=== PATIENT | female | born 1975 | race Caucasian/White ===

== ENCOUNTER 2020-07-04 18:12 | Emergency (ER) | payer SELFPAY ==
--- NOTE | ~2020-07-04 | CT_ITS ---
EXAMINATION: CT ABDOMEN AND PELVIS WITH CONTRAST CLINICAL INFORMATION: Right flank pain COMPARISON: Ultrasound of abdomen 06/17/2012 TECHNIQUE: Multidetector volumetric images were obtained from the superior aspect of the liver through the pubic symphysis following administration 85 mL of Omnipaque 350 intravenous contrast. Sagittal and coronal reformatted images were obtained on the technologist's workstation. Oral contrast: No This CT examination was performed using dose optimization techniques as appropriate, variously including the following: *Automated exposure control *Adjustment of mA and/or kV according to patient size (this includes techniques or standardized protocols for targeted exams where dose is matched to indication/reason for exam; i.e. extremities or head) *Use of iterative reconstruction technique DLP: 544 mGy-cm FINDINGS: LUNG BASES: The visualized lung bases are unremarkable. LIVER, GALLBLADDER, AND BILIARY TREE: Status post cholecystectomy. Intrahepatic and extrahepatic bile duct dilatation from prior biliary disease. No calcified stones seen in the bile duct. No suspicious liver lesions. PANCREAS: Unremarkable. SPLEEN: Unremarkable. ADRENAL GLANDS: Unremarkable. KIDNEYS AND URETERS: The kidneys are normal in size, shape, and attenuation. No hydronephrosis, hydroureter, or calculi seen. No perinephric stranding. BLADDER: Unremarkable. GASTROINTESTINAL TRACT: The small and large bowel are unremarkable. The appendix is unremarkable. ABDOMINAL WALL: No significant hernia is appreciated. LYMPH NODES: Normal. VASCULAR: Unremarkable. PELVIC VISCERA: Unremarkable. OSSEOUS STRUCTURES: Status post fusion L4-L5 and L5-S1 with orthopedic cages in place. Mild degenerative spurring at the anterior endplates of thoracic and lumbar vertebrae. CT/CT abdomen pelvis w con IMPRESSION: No acute abnormality CT scan abdomen pelvis. Normal kidneys, ureter and bladder. Normal appendix. No adnexal abnormality. Status post cholecystectomy.
[2020-07-04 18:29] VITALS: BP 110/73; PULSE 76; RESP 16; TEMP 36.9; O2SAT 97; BMI 30.2
[2020-07-04 19:34] LABS: Appearance Urine CLEAR; Color Urine YELLOW; Glucose Urine UA NEG (NEG); Leukocyte Esterase Urine NEG (NEG); Nitrite Urine NEG (NEG); PH 5.5 (5.0-8.0); Specific Gravity - Urine >= 1.030 (1.005-1.025); Urine Blood NEG (NEG); Urine Ketones NEG (NEG); Urine Protein NEG (NEG-TRACE)
--- NOTE | 2020-07-04 20:04 | ED_ITS ---
HPI - General Adult General Chief complaint: Abdominal Pain Stated complaint: flank pain? Time Seen by Provider: 07/04/20 19:58 History of Present Illness HPI narrative: Patient presents to the ED for right lower flank pain radiating down right leg. Patient states symptoms occurring for the past 4 days. Patient states no fever, chills, nausea, vomiting, diarrhea, dysuria, hematuria, chest pain, shortness of breath. Patient denies any IV drug use. Patient denies any trauma recently to right flank. Patient denies any urinary/bowel incontinence Related Data Previous Rx's Medication Instructions Recorded naproxen 500 mg PO BID PRN #20 tab 07/04/20 Allergies Allergy/AdvReac Type Severity Reaction Status Date / Time acetaminophen [From PERCOCET] AdvReac Intermediate NAUSEA & Verified 07/04/20 18:28 VOMITING oxycodone [From PERCOCET] AdvReac Intermediate NAUSEA & Verified 07/04/20 18:28 VOMITING Augmentin Allergy Unknown Unknown Uncoded 07/04/20 18:28 Cyclobenzaprine HCl Allergy Unknown Unknown Uncoded 07/04/20 18:28 Oxycodone HCl Allergy Unknown Unknown Uncoded 07/04/20 18:28 Penicillin Allergy Unknown Unknown Uncoded 07/04/20 18:28 Review of Systems Review of Systems: Yes all other systems are reviewed and are negative Constitutional: Constitutional: Reports as per HPI and Reports no additional constitutional complaints Eyes: Eyes: Reports as per HPI and Reports no additional eye complaints ENT: Reports system reviewed and no additional complaints, except as documented and Reports as per HPI Cardiovascular: Cardiovascular: Reports as per HPI and Reports no additional cardiovascular complaints Respiratory: Respiratory: Reports as per HPI and Reports no additional respiratory complaints Gastrointestinal: Gastrointestinal: Reports as per HPI and Reports no additional gastrointestinal complaints Genitourinary: Genitourinary: Reports no additional female genitourinary compl aints and Reports as per HPI Musculoskeletal: Musculoskeletal: Reports no additional musculoskeletal complaints and Reports as per HPI Comments: Right flank pain Neurologic: Reports system reviewed and no additional complaints, except as documented and Reports as per HPI Psychiatric: Psychiatric: Reports no additional psychiatric complaints and Reports as per HPI [facility] Past Medical History Medical History (Updated 07/04/20 @ 22:40 by SUKUMAR Barakat) Anxiety Arthritis Depression Fibromyalgia H/O degenerative disc disease Social History Social History Advance Directives: No Advance Directives Information Provided: No Physical Exam Vital Signs: Vital Signs: Last Vital Signs Temp 98.4 F 07/04/20 18:29 Pulse 76 07/04/20 18:29 Resp 16 07/04/20 18:29 BP 110/73 07/04/20 18:29 Pulse Ox 97 07/04/20 18:29 Body Mass Index 30.2 Const: General: cooperative, healthy appearing, comfortable, no acute distress, well developed, alert, awake and Physically active Orientation/consciousness: patient oriented x3 HENMT: Head: Yes normal to inspection, Yes No palpable skull fracture present, Yes normocephalic, Yes atraumatic, No abrasion, No Santillan's sign, No contusion, No cranial bruits, No hematoma, No laceration, No occipital foramen tenderness, No palpable skull fracture, No raccoon eyes, No scalp tenderness, No Temporal artery tenderness present and No periorbital ecchymosis Eyes: General: appearance normal, both eyes and all related structures Neck: Neck: Yes normal visual inspection, Yes full ROM, Yes no lymphadenopathy, Yes no meningeal signs, Yes trachea midline, Yes supple and No tender Chest: Chest palpation & inspection: normal inspection of the chest and normal palpation of entire chest wall Breast/axilla inspection: normal inspection of the breasts Resp: Effort & Inspection: normal respiratory effort and able to speak in complete sentences Auscultation: clear to auscultation bilaterally Cardio: Jugular venous distension: no JVD Heart sounds: S1 normal heart sound present and S2 normal heart sound present GI: Inspection: Yes normal to inspection and No abdominal wall ecchymosis Palpation (GI): Soft to palpation, not firm, nontender, no guarding and not rigid Back/Spine/Pelvis: Back: CVA tenderness (Right lower) and back tenderness (Right lumbar muscular tenderness. Negative for spine tenderness.) Skin: General skin exam: no rashes or lesions noted and elasticity normal Neuro: General: patient oriented x3, no meningeal signs and CN's II-XI intact bilaterally Cranial nerves: Yes CN's II-XII intact bilaterally Extrem: General: Yes normal to inspection and Yes full ROM Psych: Appearance: grossly normal, well kempt and not disheveled Course Course Course Narrative: Patient will have labs and urine to see for possible kidney stone/UTI. Patient was given fluids. Reevaluation(s) Reevaluation #1: Patient labs came back normal. CT scan negative for kidney stones. Urine negative for infection. Patient feels better after Toradol. Patient prepared paperwork to be discharged. History physical exam does not indicate pyelonephritis. Diagnosis sciatica exacerbation Medical Decision Making Lab Data Result diagrams: 07/04/20 20:04 07/04/20 20:04 Labs: Lab Results 07/04/20 07/04/20 07/04/20 Range/Units 19:19 20:04 20:04 WBC 9.4 (4.8-10.8) X10*3/uL RBC 4.09 L (4.20-5.50) X10*6/uL Hgb 12.8 (12.0-16.0) g/dl Hct 37.5 (37-47) % MCV 91.7 (80-98) fL MCH 31.3 (27.0-33.0) pg MCHC 34.1 (31.0-35.0) g/dl RDW 14.9 (11.0-16.0) % Plt Count 262 (160-400) X10*3/uL MPV 9.7 (9.4-12.3) fL Immature Gran % (Auto) 0.3 (0.0-0.4) % Neut % (Auto) 52.0 (45-73) % Lymph % (Auto) 38.0 (20-40) % [place] % (Auto) 6.1 (2-11) % Eos % (Auto) 3.2 (0-4) % Baso % (Auto) 0.4 (0-2) % Lymph # (Auto) 3.6 (1.2-4.9) X10*3/uL [place] # (Auto) 0.6 (0.1-1.2) X10*3/uL Eos # (Auto) 0.3 (0.0-0.4) X10*3/uL Baso # (Auto) 0.0 (0.0-0.2) X10*3/uL Abs Immat Gran (auto) 0.03 (0.00-0.03) X10*3/uL Absolute Neuts (auto) 4.9 (2.0-8.3) X10*3/uL Absolute Nucleated RBC 0.000 (0.0-0.012) X10*3/uL Nucleated RBC % (auto) 0.0 (0.0-0.2) /100WBC PT 11.6 (10.8-13.0) SEC INR 1.0 (0.9-1.1) APTT 37.6 (24.1-38.0) SEC Sodium (135-145) mmol/L Potassium (3.3-5.1) mmol/L Chloride (96-108) mmol/L Carbon Dioxide (22-29) mmol/L Anion Gap (12-20) BUN (9-16) mg/dL Creatinine (0.5-1.4) mg/dL Estim Creat Clear Calc Estimated GFR Random Glucose (60-115) mg/dL Calcium (8.4-10.2) mg/dL Total Bilirubin (0.0-1.0) mg/dL Direct Bilirubin (0.0-0.5) mg/dL AST (5-31) U/L ALT (0-31) U/L Alkaline Phosphatase (39-117) U/L Total Protein (6.5-8.0) g/dL Albumin (3.5-5.0) g/dL Lipase (8-78) U/L Urine Color YELLOW Urine Appearance CLEAR Urine pH 5.5 (5.0-8.0) Ur Specific [place] >= 1.030 H (1.005-1.025) Urine Protein NEG (NEG-TRACE) MG/DL Urine Glucose (UA) NEG (NEG) MG/DL Urine Ketones NEG (NEG) MG/DL Urine Blood NEG (NEG) Urine Nitrite NEG (NEG) Ur Leukocyte Esterase NEG (NEG) 07/04/20 Range/Units 20:04 WBC (4.8-10.8) X10*3/uL RBC (4.20-5.50) X10*6/uL Hgb (12.0-16.0) g/dl Hct (37-47) % MCV (80-98) fL MCH (27.0-33.0) pg MCHC (31.0-35.0) g/dl RDW (11.0-16.0) % Plt Count (160-400) X10*3/uL MPV (9.4-12.3) fL Immature Gran % (Auto) (0.0-0.4) % Neut % (Auto) (45-73) % Lymph % (Auto) (20-40) % [place] % (Auto) (2-11) % Eos % (Auto) (0-4) % Baso % (Auto) (0-2) % Lymph # (Auto) (1.2-4.9) X10*3/uL [place] # (Auto) (0.1-1.2) X10*3/uL Eos # (Auto) (0.0-0.4) X10*3/uL Baso # (Auto) (0.0-0.2) X10*3/uL Abs Immat Gran (auto) (0.00-0.03) X10*3/uL Absolute Neuts (auto) (2.0-8.3) X10*3/uL Absolute Nucleated RBC (0.0-0.012) X10*3/uL Nucleated RBC % (auto) (0.0-0.2) /100WBC PT (10.8-13.0) SEC INR (0.9-1.1) APTT (24.1-38.0) SEC Sodium 137 (135-145) mmol/L Potassium 4.6 (3.3-5.1) mmol/L Chloride 103 (96-108) mmol/L Carbon Dioxide 26 (22-29) mmol/L Anion Gap 13 (12-20) BUN 13 (9-16) mg/dL Creatinine 0.81 (0.5-1.4) mg/dL Estim Creat Clear Calc 83.9 Estimated GFR > 60 Random Glucose 70 (60-115) mg/dL Calcium 8.2 L (8.4-10.2) mg/dL Total Bilirubin 0.4 (0.0-1.0) mg/dL Direct Bilirubin < 0.2 (0.0-0.5) mg/dL AST 22 (5-31) U/L ALT 15 (0-31) U/L Alkaline Phosphatase 72 (39-117) U/L Total Protein 6.1 L (6.5-8.0) g/dL Albumin 3.7 (3.5-5.0) g/dL Lipase 17 (8-78) U/L Urine Color Urine Appearance Urine pH (5.0-8.0) Ur Specific [place] (1.005-1.025) Urine Protein (NEG-TRACE) MG/DL Urine Glucose (UA) (NEG) MG/DL Urine Ketones (NEG) MG/DL Urine Blood (NEG) Urine Nitrite (NEG) Ur Leukocyte Esterase (NEG) Discharge Plan Discharge Clinical Impression: Sciatica Patient Disposition: Home, Self-Care Instructions: Sciatica (ED) Additional Instructions: To the ED immediately for worsening lower flank/back pain, urinary con tinence/bowel incontinence, paralysis of lower extremities, fever, chills, severe back pain, chest pain, shortness of breath, or any other concerning symptoms. Please follow up with PCP Prescriptions: New naproxen 500 mg tablet 500 mg PO BID PRN (Reason: pain) Qty: 20 RF: 0 Interventions: ED Discharge Assessment Last Done: 07/04/20 22:47 Discharge Date/Time: 07/04/20 22:48 Print Language: Ethiopian
[2020-07-04 20:15] LABS: MANUAL DIFF FLAG NO
[2020-07-04] MEDS: 0.9 % Sodium Chloride 1,000 ML 999 ML IV (20:16)
[2020-07-04 20:17] LABS: Basophils Percent Auto 0.4 % (0-2); Eosinophils Absolute Auto 0.3 X10*3/uL (0.0-0.4); Eosinophils Percent Auto 3.2 % (0-4); Hematocrit 37.5 % (37-47); Hemoglobin 12.8 g/dl (12.0-16.0); Imm Gran Abs Auto 0.03 X10*3/uL (0.00-0.03); Imm Gran Pct Auto 0.3 % (0.0-0.4); Lymphocytes Absolute Auto 3.6 X10*3/uL (1.2-4.9); Mean Corpuscular HGB Conc 34.1 g/dl (31.0-35.0); Mean Corpuscular Hemoglobin 31.3 pg (27.0-33.0); Mean Corpuscular Volume 91.7 fL (80-98); Mean Platelet Volume 9.7 fL (9.4-12.3); Monocytes Absolute Auto 0.6 X10*3/uL (0.1-1.2); Monocytes Percent Auto 6.1 % (2-11); Neutrophils Absolute Auto 4.9 X10*3/uL (2.0-8.3); Platelet Count 262 X10*3/uL (160-400); Red Blood Count 4.09 X10*6/uL (4.20-5.50); Red Cell Distribution Width 14.9 % (11.0-16.0); White Blood Count 9.4 X10*3/uL (4.8-10.8)
[2020-07-04 20:22] LABS: Prothrombin Time 11.6 SEC (10.8-13.0)
[2020-07-04 20:25] LABS: Partial Thromboplastin Time 37.6 SEC (24.1-38.0)
[2020-07-04 20:36] LABS: Alanine Aminotransferase 15 U/L (0-31); Albumin Level 3.7 g/dL (3.5-5.0); Alkaline Phosphatase 72 U/L (39-117); Anion Gap 13 (12-20); Aspartate Amino Transferase 22 U/L (5-31); Bilirubin Direct < 0.2 mg/dL (0.0-0.5); Bilirubin Total 0.4 mg/dL (0.0-1.0); Blood Urea Nitrogen 13 mg/dL (9-16); Calcium 8.2 mg/dL (8.4-10.2); Carbon Dioxide 26 mmol/L (22-29); Chloride 103 mmol/L (96-108); Creatinine Clr Calc Pharmacy 83.9; Estimated Glomerular Filt Rate > 60; Glucose Random 70 mg/dL (60-115); Lipase 17 U/L (8-78); Potassium 4.6 mmol/L (3.3-5.1); Sodium 137 mmol/L (135-145); Total Protein 6.1 g/dL (6.5-8.0)
[2020-07-04] MEDS: Ketorolac Tromethamine 30 MG/ML VIAL IVPUSH (22:20)
== END 2020-07-04 22:48 | disposition home or self-care (01) ==
PROVIDERS: Physician Assistant; Emergency Provider Internal Medicine; PCP Hospitalist
DX: M54.41 Lumbago with sciatica, right side (principal); R10.9 Unspecified abdominal pain; Z79.899 Other long term (current) drug therapy
CPT/HCPCS: 36415; 74177; 80053; 80076; 81003; 83690; 85025; 85610; 85730; 96365; 96375; 99283; J1885; Q9967

== ENCOUNTER 2021-08-10 08:19 | Outpatient (REF) | payer MEDICARE, MEDICAID, SELFPAY ==
--- NOTE | ~2021-08-10 | XR_ITS ---
EXAMINATION: XR LUMBOSACRAL SPINE CLINICAL INFORMATION: Chronic pain. COMPARISON: None TECHNIQUE: Three views of the lumbosacral spine. FINDINGS: There is normal lumbar lordosis. There is L4-L5 and L5-S1 cages for fusion. Rest of the disc heights are normal. No visible acute fracture, dislocation or lytic process seen. There are prevertebral sutures from previous intervention. Otherwise the paravertebral soft tissues are normal. SI joints are symmetrical and normal. There are surgical cecilia in right upper quadrant from previous cholecystectomy. XR/XR lumbar spine 2-3V IMPRESSION: L4-L5 and L5-S1 cages for fusion. Otherwise rest of the lumbar spine exam is unremarkable.
[2021-08-10 11:22] LABS: MANUAL DIFF FLAG NO
[2021-08-10 11:36] LABS: Basophils Absolute Auto 0.1 X10*3/uL (0.0-0.2); Basophils Percent Auto 0.5 % (0-2); Eosinophils Absolute Auto 0.3 X10*3/uL (0.0-0.4); Eosinophils Percent Auto 2.4 % (0-4); Hematocrit 41.2 % (37.0-47.0); Hemoglobin 13.8 g/dl (12.0-16.0); Imm Gran Abs Auto 0.04 X10*3/uL (0.00-0.03); Imm Gran Pct Auto 0.4 % (0.0-0.4); Lymphocytes Absolute Auto 2.3 X10*3/uL (1.2-4.9); Lymphocytes Percent Auto 20.5 % (20-40); Mean Corpuscular HGB Conc 33.5 g/dl (31.0-35.0); Mean Corpuscular Hemoglobin 30.9 pg (27.0-33.0); Mean Corpuscular Volume 92.4 fL (80.0-98.0); Mean Platelet Volume 10.7 fL (9.4-12.3); Monocytes Absolute Auto 0.7 X10*3/uL (0.1-1.2); Monocytes Percent Auto 6.1 % (2-11); Neutrophils Absolute Auto 7.8 x10*3/uL (2.0-8.3); Neutrophils Percent Auto 70.1 % (45-73); Platelet Count 356 X10*3/uL (160-400); Red Blood Count 4.46 X10*6/uL (4.20-5.50); Red Cell Distribution Width 14.3 % (11.0-16.0); White Blood Count 11.1 X10*3/uL (4.8-10.8)
[2021-08-10 12:09] LABS: Ferritin 46 ng/mL (10-250); TSH reflex Free T4 1.73 uIU/mL (0.32-4.0)
[2021-08-10 12:12] LABS: Alanine Aminotransferase 9 U/L (0-31); Albumin Level 4.1 g/dL (3.5-5.0); Alkaline Phosphatase 74 U/L (39-117); Anion Gap 12 (12-20); Aspartate Amino Transferase 13 U/L (5-31); Bilirubin Total 0.3 mg/dL (0.0-1.0); Blood Urea Nitrogen 14 mg/dL (9-16); C Reactive Protein 1.37 mg/dL (< or = 0.50); Calcium 9.5 mg/dL (8.4-10.2); Carbon Dioxide 28 mmol/L (22-29); Chloride 105 mmol/L (96-108); Cholesterol 177 mg/dL; Estimated Glomerular Filt Rate > 60; Glucose Fasting 80 mg/dL (60-99); HDL Cholesterol 47 mg/dL; Iron 49 mcg/dL (30-160); LDL Cholesterol Calculated 114 mg/dl; Percent Iron Saturation 14 % (15-50); Potassium 4.6 mmol/L (3.3-5.1); Sodium 140 mmol/L (135-145); Total Iron Binding Capacity 346 mcg/dL (228-428); Total Protein 6.8 g/dL (6.5-8.0); Triglycerides 84 mg/dL; Unsaturated Iron Binding 297 ug/dL
[2021-08-10 12:22] LABS: Erythrocyte Sedimentation Rate 7 MM/HR (0-20)
[2021-08-10 12:30] LABS: Appearance Urine CLEAR; Color Urine YELLOW; Glucose Urine UA NEG (NEG); Leukocyte Esterase Urine NEG (NEG); Nitrite Urine NEG (NEG); Urine Blood NEG (NEG); Urine Ketones NEG (NEG); Urine Protein NEG (NEG-TRACE)
[2021-08-12 14:42] LABS: Anti Nuclear Antibody Screen NEGATIVE (NEGATIVE)
[2021-08-14 18:41] LABS: Lyme Abs Screen <0.90 index
[2021-08-14 23:01] LABS: Antibody to SS-A Antigen <1.0 NEG AI (<1.0 NEG); Antibody to SS-B Antigen <1.0 NEG AI (<1.0 NEG)
== END 2021-08-10 08:20 | disposition home or self-care (01) ==
LOC: HO.HMGCLDS 08:19
PROVIDERS: Visit Provider Nurse Practitioner Family
DX: M19.90 Unspecified osteoarthritis, unspecified site (principal); M79.7 Fibromyalgia; G89.29 Other chronic pain
CPT/HCPCS: 36415; 72100; 80053; 80061; 81003; 82728; 83540; 84443; 85025; 85652; 86038; 86039; 86140; 86235; 86617; 86618

== ENCOUNTER → 2021-09-04 08:23 | Outpatient (BNVA) | payer MEDICARE, MEDICAID, SELFPAY | PROVIDERS: PCP Nurse Practitioner Family; Visit Provider Internal Medicine | DX: M96.1 Postlaminectomy syndrome, not elsewhere classified (principal); M25.569 Pain in unspecified knee; M25.519 Pain in unspecified shoulder | CPT/HCPCS: 99202 ==

== ENCOUNTER 2022-10-31 13:21 | Outpatient (AMB) | payer OTHER, MEDICAID, SELFPAY ==
--- NOTE | 2022-10-31 13:27 | A.OFFVIS_ITS ---
Intake Vital Signs 10/31/22 13:29 Height 5 ft 2 in Weight 166 lb BMI 30.4 BP 90/58 L Intake Visit Reasons: New patient Annual Intake Note: The patient agreed to use of a medical cost consultant during this encounter. Scribed for JAG Chavarria by Doris Boston medical cost consultant, on 10/31/2022. Procurement Analyst Required: No Information Interpreted: non-clinical & clinical Senior Pharmacy Technician: Senior Pharmacy Technician Present (Aidyn) Allergies Augmentin Allergy (Unknown, Uncoded 10/31/22 13:31) Unknown Cyclobenzaprine HCl Allergy (Unknown, Uncoded 10/31/22 13:31) Unknown Oxycodone HCl Allergy (Unknown, Uncoded 10/31/22 13:31) Unknown Penicillin Allergy (Unknown, Uncoded 10/31/22 13:31) Unknown Is last menstrual period known: Yes Last menstrual period: 10/24/22 Post menopausal: No HPI HPI Comments History of Present Illness Details She is a new patient postmenopausal woman presenting for annual exam. Complains of hot flashes and sweating in pubic area. Patient admits she tries to eat a healthy diet including Calcium and Vitamin D. She stays active with exercise. Currently sexually active. Denies vaginal itching and irritation. STD screening offered; she declines. Denies family hx of breast, colon and ovarian cancer. Last pap smear few years ago; normal per pt. Patient reports last mammograms are up to date but does not remember where it was done. UTD on colonoscopy. PFSH Medical History Anxiety Arthritis Depression Fibromyalgia H/O degenerative disc disease Hot flashes Surgical History History of back surgery Hx of knee surgery Hx of tubal ligation Family History Mother Cervical cancer Father Throat cancer Social History Housing: Apartment Patient Tobacco Use Status: Current everyday Tobacco user Cigarette Packs Per Day: 1 Cigarettes Per Day: 20 e-Cigarette/Vaping Use: Never Used Second Hand Smoke Exposure: No service: No Current occupational status: disabled Cognitive needs: No Hearing needs: No Vision needs: No Female Reproductive History Menstrual Age of Menarche: 14 Duration of menses: 6-7 days Date of last menstrual period: 10/24/22 control method: permanent sterilization Total pregnancies: 2 Full term: 2 Number of Living Children: 2 Physical Exam Vital Signs: Last Vital Signs BP 90/58 L 10/31/22 13:29 BMI result Body Mass Index 30.4 Const General: cooperative, healthy appearing, no acute distress, well developed and alert Orientation/consciousness: patient oriented x3 HEENT Head: Yes normal to inspection Eyes General: appearance normal, both eyes and all related structures Neck Neck: Yes normal visual inspection Thyroid: Thyroid normal Chest Chest palpation & inspection: normal inspection of the chest Breast/axilla inspection: normal inspection of the breasts (no puckering, dimpling, peau de orange, retraction, discharge, masses) Breast/axilla palpation: normal palpation of the breasts Resp Effort & Inspection: normal respiratory effort GI Inspection: Yes normal to inspection Palpation (GI): Soft to palpation (to palpation) Rectal Exam - Female: deferred General: Yes bladder normal to inspection External Female Exam: normal external appearance and normal appearance of the urethra Speculum Exam - Vagina: normal appearance of the vagina, normal palpation and normal vaginal discharge Speculum Exam - Cervix: normal appearance of the cervix, normal palpation and Other cervical findings present (bled slightly with pap) Bimanual exam- vagina & uterus: normal palpation and normal palpation Bimanual Exam- Adnexa, other: normal adnexae and no masses Skin General skin exam: no rashes or lesions noted Neuro General: patient oriented x3 Cognition (Neuro): normal cognition Extrem General: Yes normal to inspection Psych Attitude: cooperative Thought process: Normal thought process present Assessment & Plan Assessment & Plan (1) Encounter for well woman exam: Code(s): Z01.419 - Encounter for gynecological examination (general) (routine) without abnormal findings Plan: Discussed: Current recommendations for pap smears per ASCCP guidelines. Breast awareness and periodic self breast exams. Encouraged yearly mammograms. Maintaining a healthy lifestyle including a well balanced diet including Calcium and Vitamin D and routine exercise. Recommend researching and buying OTC vaginal/pubic deodorant as a potential option. Counseled on hot flashes. Avoid spicy foods and alcohol. Wear light, layered clothing. Sleep with fan on. Can also try a cooling pillow or mattress. Stay well hydrated. Researching book called The [place] of Menopause or other similar information at the library. Recommend lubricants if experience vaginal dryness. Contact office with any PMB. All of her questions and concerns were addressed to the best of my ability RTO in 1 year for AG. (2) Hot flashes: Code(s): R23.2 - Flushing Orders: Orders Pap Smear Today Z01.419 - Encounter for gynecological examination (general) (routine) without abnormal findings Coding Level of Care Code New Pt Prev Care 40-64y(17389) Diagnoses Encounter for well woman exam Z01.419 Hot flashes R23.2
[2022-10-31 13:29] VITALS: BP 90/58; BMI 30.4
== END 2022-10-31 14:23 | disposition home or self-care (01) ==
LOC: HO.HWS 13:21
PROVIDERS: PCP Nurse Practitioner Family; Visit Provider Advanced Practice Midwife
DX: Z01.419 Encounter for gynecological examination (general) (routine) without abnormal findings (principal); R23.2 Flushing
CPT/HCPCS: G0101

== ENCOUNTER 2022-10-31 13:21 | Outpatient (REF) | payer OTHER, SELFPAY ==
[2022-11-06 21:23] LABS: HPV mRNA E6/E7 rflx Not Detected (Not Detected)
== END 2022-10-31 13:22 | disposition home or self-care (01) ==
LOC: HO.LNP 13:21
PROVIDERS: PCP Nurse Practitioner Family; Visit Provider Advanced Practice Midwife
DX: Z01.419 Encounter for gynecological examination (general) (routine) without abnormal findings (principal); R23.2 Flushing
CPT/HCPCS: 87624; 88142; G0101

== ENCOUNTER 2023-01-29 14:10 | Outpatient (AMB) | payer OTHER, SELFPAY ==
--- NOTE | 2023-01-29 14:22 | MHC.OFFVIS ---
Intake Vital Signs 01/29/23 14:23 Height 5 ft 2 in Weight 165 lb BMI 30.2 BP 110/70 Intake Visit Reasons: irreg bleeding Intake Note: The patient agreed to use of a medical records tech during this encounter. Scribed for JAG Chavarria by Doris Boston medical records tech, on 01/29/2023 at 2:44 pm EST. Drilling Rig Operator: Drilling Rig Operator Present (Laure) Allergies Augmentin Allergy (Unknown, Uncoded 01/29/23 14:28) Unknown Cyclobenzaprine HCl Allergy (Unknown, Uncoded 01/29/23 14:28) Unknown Oxycodone HCl Allergy (Unknown, Uncoded 01/29/23 14:28) Unknown Penicillin Allergy (Unknown, Uncoded 01/29/23 14:28) Unknown Is last menstrual period known: Yes Last menstrual period: 01/13/23 HPI HPI Comments History of Present Illness Details She is here with complaints of irregular, painful VB from LMP January 13 until yesterday. Recently seen at walk-in clinic for vaginal itching, and UTI and was given Rx for yeast. She reports a rash in the area improving, but not resolved. [facility] Medical History Abnormal uterine bleeding (AUB) Hot flashes Anxiety Depression Fibromyalgia Arthritis H/O degenerative disc disease Surgical History Hx of cholecystectomy Hx of tubal ligation Hx of knee surgery History of back surgery Family History Mother Cervical cancer Father Throat cancer Paternal Grandmother History of breast cancer Social History Housing: Apartment Patient Tobacco Use Status: Current everyday Tobacco user Cigarette Packs Per Day: 1 Cigarettes Per Day: 20 e-Cigarette/Vaping Use: Never Used Second Hand Smoke Exposure: No service: No Current occupational status: disabled Cognitive needs: No Hearing needs: No Vision needs: No Female Reproductive History Menstrual Age of Menarche: 14 Duration of menses: >10 days Date of last menstrual period: 01/13/23 Physical Exam Vital Signs: Last Vital Signs BP 110/70 01/29/23 14:23 BMI result Body Mass Index 30.2 Const General: cooperative, healthy appearing, comfortable, no acute distress, well developed, alert and awake Other: Maria A-anal rash with erythema General: Yes bladder normal to palpation External Female Exam: normal external appearance and normal appearance of the urethra Speculum Exam - Vagina: normal appearance of the vagina, normal palpation and normal vaginal discharge Speculum Exam - Cervix: normal appearance of the cervix and normal palpation Bimanual exam- vagina & uterus: normal bimanual exam, normal palpation, bladder normal to palpation and normal palpation Bimanual Exam- Adnexa, other: normal adnexae and no masses Results AMB Test Urine AMB Test Urine Negative Last Edit by FERMIN Gonzalez on 01/29/23 14:35 AMB Urinalysis, Automated UA Leukoctes 0 Conner/uL Last Edit by FERMIN Gonzalez on 01/29/23 14:35 UA Nitrite Negative Last Edit by Sherry Spain Thien on 01/29/23 14:35 UA Urobilinogen 0 mg/dL Last Edit by Sherry Spain Thien on 01/29/23 14:35 UA Protein 0 mg/dL Last Edit by Sherry Spain Thien on 01/29/23 14:35 UA pH 5.5 Last Edit by Sherry Spain Thien on 01/29/23 14:35 UA Blood 0 Saqib/uL Last Edit by Sherry Spain Thien on 01/29/23 14:35 UA Specific [place] 1.020 Last Edit by FERMIN Gonzalez on 01/29/23 14:35 UA Ketone Negative Last Edit by Sherry Spain Thien on 01/29/23 14:35 UA Bilirubin 0 mg/dL Last Edit by Sherry Spain hTien on 01/29/23 14:35 UA Glucose 0 mg/dL Last Edit by Sherry Spain [facility] on 01/29/23 14:35 Results Reviewed Results Reviewed: Laboratory Last Values Urine pH (Auto) 5.5 01/29/23 14:32 Specific [place] (Auto) 1.020 01/29/23 14:32 Urine Protein (Auto) 0 mg/dL 01/29/23 14:32 Glucose (UA)(Auto) 0 mg/dL 01/29/23 14:32 Urine Ketones (Auto) Negative 01/29/23 14:32 Urine Blood (Auto) 0 Saqib/uL 01/29/23 14:32 Urine Nitrite (Auto) Negative 01/29/23 14:32 Urine Bilirubin (Auto) 0 mg/dL 01/29/23 14:32 Urine Urobilinogen (Auto) 0 mg/dL 01/29/23 14:32 Leukocyte Esterase (Auto) 0 Conner/uL 01/29/23 14:32 Tst Clinic Negative 01/29/23 14:32 Assessment & Plan Assessment & Plan (1) Abnormal uterine bleeding (AUB): Code(s): N93.9 - Abnormal uterine and vaginal bleeding, unspecified (2) Abnormal uterine bleeding (AUB): Code(s): N93.9 - Abnormal uterine and vaginal bleeding, unspecified Plan: Discussed: Pelvic US and labs ordered. Follow up in person for results. Discussed possible EMB. The EMB purpose was explained to rule out atypia, hyperplasia and uterine cancer. BV testing and GC/CT panel done today. Await results and treat accordingly. All of her questions and concerns were addressed to the best of my ability and shared decision making. She is agreeable to plan of care. (3) Vaginal itching: Code(s): N89.8 - Other specified noninflammatory disorders of vagina Plan: Advised to clean with water only, no soaps to the area, dry well, apply Aquaphor or Vaseline and wear cotton underwear. (4) Vaginal irritation: Code(s): N89.8 - Other specified noninflammatory disorders of vagina (5) Skin rash: Code(s): R21 - Rash and other nonspecific skin eruption Plan: skin care: use of Aquaphor or Vaseline to the area, irritation most likely from wetness and pad use. Orders: Orders AMB HCG Urine Test Today N93.9 - Abnormal uterine and vaginal bleeding, unspecified US pelvic and transvaginal Today N93.9 - Abnormal uterine and vaginal bleeding, unspecified Thyroid Stimulating Hormone Today N92.1 - Excessive and frequent menstruation with irregular cycle, N93.9 - Abnormal uterine and vaginal bleeding, unspecified Bacterial Vaginosis Panel Today N93.9 - Abnormal uterine and vaginal bleeding, unspecified CT NG by PCR Today N93.9 - Abnormal uterine and vaginal bleeding, unspecified AMB Urinalysis Automated Today R10.2 - Pelvic and perineal pain Complete Blood Count no Diff Today N93.9 - Abnormal uterine and vaginal bleeding, unspecified Coding Level of Care Code Est Pt Level 4 (11300) Diagnoses Abnormal uterine bleeding (AUB) N93.9 Vaginal itching N89.8 Vaginal irritation N89.8 Skin rash R21
[2023-01-29 14:23] VITALS: BP 110/70; BMI 30.2
== END 2023-01-29 15:21 | disposition home or self-care (01) ==
PROVIDERS: PCP Nurse Practitioner Family; Visit Provider Advanced Practice Midwife
DX: N93.9 Abnormal uterine and vaginal bleeding, unspecified (principal); N89.8 Other specified noninflammatory disorders of vagina; R21 Rash and other nonspecific skin eruption; R10.2 Pelvic and perineal pain
CPT/HCPCS: 99214

== ENCOUNTER 2023-01-29 14:10 | Outpatient (REF) | payer OTHER, SELFPAY ==
[2023-01-29 15:29] LABS: Hematocrit 41.5 % (37.0-47.0); Mean Corpuscular HGB Conc 33.7 g/dl (31.0-35.0); Mean Corpuscular Hemoglobin 30.6 pg (27.0-33.0); Mean Corpuscular Volume 90.8 fL (80.0-98.0); Mean Platelet Volume 9.6 fL (9.4-12.3); Platelet Count 360 X10*3/uL (160-400); Red Blood Count 4.57 X10*6/uL (4.20-5.50); Red Cell Distribution Width 13.6 % (11.0-16.0); White Blood Count 11.1 X10*3/uL (4.8-10.8)
[2023-01-29 16:12] LABS: Thyroid Stimulating Hormone 2.47 uIU/mL (0.32-4.0)
[2023-01-29 17:53] LABS: CT PCR NOT DETECTED (Not Detect.); NG PCR NOT DETECTED (Not Detect.)
[2023-01-30 12:59] LABS: BV Int Neg Control Negative (Negative); BV Int Pos Control Positive (Positive)
== END 2023-01-29 14:11 | disposition home or self-care (01) ==
LOC: HO.LAB 14:10
PROVIDERS: PCP Nurse Practitioner Family; Visit Provider Advanced Practice Midwife
DX: N92.1 Excessive and frequent menstruation with irregular cycle (principal); N93.9 Abnormal uterine and vaginal bleeding, unspecified; N89.8 Other specified noninflammatory disorders of vagina; R21 Rash and other nonspecific skin eruption
CPT/HCPCS: 0353U; 81003; 81025; 84443; 85027; 87480; 87510; 87660; 99212

== ENCOUNTER 2023-01-29 14:45 | Outpatient (REF) | payer OTHER, SELFPAY | END 2023-01-29 14:46 | disposition home or self-care (01) | LOC: HO.LNP 14:45 | PROVIDERS: Visit Provider Advanced Practice Midwife | DX: Z13.89 Encounter for screening for other disorder (principal) ==

== ENCOUNTER 2023-01-31 13:54 | Outpatient (REF) | payer OTHER, SELFPAY ==
--- NOTE | ~2023-01-31 | US_ITS ---
EXAMINATION: US PELVIS COMPLETE CLINICAL INFORMATION: Abnormal uterine bleeding COMPARISON: CT abdomen pelvis 07/04/2020 TECHNIQUE: Transabdominal and transvaginal imaging was performed. FINDINGS: The uterus is of normal size and echogenicity measuring 7.5 x 4.7 x 4.9 cm. A regular homogeneous endometrium is identified measuring 0.4 cm. Nabothian cysts in the cervix. Both ovaries are of normal size and echogenicity. The right measures 2.1 x 1.3 x 2.2 cm for a volume of 3.1 mL. The left measures 2.3 x 1.7 x 1.7 cm for a volume of 3.5 mL. There is no pelvic free fluid. US/US pelvic and transvaginal IMPRESSION: Unremarkable pelvic ultrasound.
== END 2023-01-31 13:55 | disposition home or self-care (01) ==
LOC: HO.HMGCX 13:54
PROVIDERS: PCP Nurse Practitioner Family; Visit Provider Advanced Practice Midwife
DX: N93.9 Abnormal uterine and vaginal bleeding, unspecified (principal)
CPT/HCPCS: 76830; 76856

== ENCOUNTER 2023-02-08 08:01 | Outpatient (AMB) | payer OTHER, SELFPAY ==
--- NOTE | 2023-02-08 08:07 | MHC.OFFWIV ---
Intake Vital Signs 02/08/23 08:08 Height 5 ft 2 in Weight 165 lb BMI 30.2 BP 110/70 Blood Pressure Location Lt brachial Position Sitting Pulse 84 Pulse Source Pulse Oximeter Temp 97.5 F Temp Source Temporal Artery Scan Pulse Oximetry (%) 98 Oxygen Delivery Method Room Air Intake Visit Reasons: EP ?Pinched nerve/pulled muscle RT arm Intake Note: pt is here for c/o pinched nerve and pulled muscle in rt arm Patient Tobacco Use Status: Current everyday Tobacco user Allergies Augmentin Allergy (Unknown, Uncoded 02/08/23 08:08) Unknown Cyclobenzaprine HCl Allergy (Unknown, Uncoded 02/08/23 08:08) Unknown Oxycodone HCl Allergy (Unknown, Uncoded 02/08/23 08:08) Unknown Penicillin Allergy (Unknown, Uncoded 02/08/23 08:08) Unknown Do you need a note to return to daycare/school/sports/work: Yes HPI HPI Comments History of Present Illness Details This is a 47-year-old female with a past medical history of lumbar fusion presenting for evaluation of pain in her neck that radiates to her right arm and hand. Patient states her symptoms have been present for the past 3 days and she denies any injury or trauma preceding the onset of her symptoms. Patient states the pain is a tingling and shooting sensation that has not worsened but has not resolved with ibuprofen. Patient states the pain radiates into her Right 4th and 5th digits. She denies any right arm weakness. [facility] Medical History Abnormal uterine bleeding (AUB) Hot flashes Anxiety Depression Fibromyalgia Arthritis H/O degenerative disc disease Surgical History Hx of cholecystectomy Hx of tubal ligation Hx of knee surgery History of back surgery Family History Mother Cervical cancer Father Throat cancer Paternal Grandmother History of breast cancer Social History Housing: Apartment Patient Tobacco Use Status: Current everyday Tobacco user Cigarette Packs Per Day: 1 Cigarettes Per Day: 20 e-Cigarette/Vaping Use: Never Used Second Hand Smoke Exposure: No service: No Current occupational status: disabled Cognitive needs: No Hearing needs: No Vision needs: No Female Reproductive History Menstrual Age of Menarche: 14 Review of Systems Const All systems reviewed & are unremarkable except as noted in HPI and below Reports no additional complaints ENT Reports neck pain Musc Reports as per HPI, Reports neck pain and Reports radiating pain into limb (right arm, right hand) Physical Exam Const General: cooperative, healthy appearing, comfortable, no acute distress and well developed; No ill appearing Nutritional Appearance: average body habitus Orientation/consciousness: patient oriented x3 Limitations: no limitations Neck Neck: Yes full ROM and Yes tender Back/Spine/Pelvis Cervical Spine: normal cervical lordosis, cervical ROM normal, cervical muscular tenderness (right cervical SCM tenderness), No Cervical spine tenderness and No step off deformity Skin General skin exam: no rashes or lesions noted Neuro General: patient oriented x3 Gait exam (Neuro): Normal gait present Motor exam (neuro): 5/5 motor strength present throughout, Pronator motor function not present and Normal motor muscle tone present throughout Extrem General: Yes normal to inspection Right upper extremity: normal to inspection, full ROM, shoulder/upper arm Details: normal to inspection and normal ROM; no tenderness, wrist Details: normal to inspection and Extremity exam: right hand Details: normal to inspection Psych Appearance: grossly normal Mental Status: mental status grossly normal Insight: Good insight present (Psych) Judgement: Good judgement present (Psych) Assessment & Plan Assessment & Plan (1) Cervical radiculopathy: Code(s): M54.12 - Radiculopathy, cervical region Plan: Patient's history coupled with her examination is consistent with a right cervical radiculopathy. Patient will be discharged home with Naprosyn and Robaxin and follow-up with her primary care provider within 5 days if her symptoms are not improving. Medications: New naproxen (Naprosyn) 500 mg PO BID 20 tabs 0RF methocarbamol 750 mg PO Q8H 20 tabs 0RF Coding Level of Care Code Est Pt Level 3 (52713) Diagnoses Cervical radiculopathy M54.12
[2023-02-08 08:08] VITALS: BP 110/70; PULSE 84; TEMP 36.4; O2SAT 98; BMI 30.2
== END 2023-02-08 08:52 | disposition home or self-care (01) ==
PROVIDERS: PCP Nurse Practitioner Family; Visit Provider Physician Assistant
DX: M54.12 Radiculopathy, cervical region (principal)
CPT/HCPCS: 99213

== ENCOUNTER 2023-02-19 09:21 | Outpatient (AMB) | payer OTHER, SELFPAY ==
[2023-02-19 09:27] VITALS: BP 118/80
--- NOTE | 2023-02-19 09:27 | MHC.OFFVIS ---
Intake Vital Signs 02/19/23 09:27 Height 5 ft 2 in Weight 164 lb BMI 30.0 BP 118/80 Intake Visit Reasons: Ultrasound follow up/? EMB Intake Note: Scribed for Joanie Peterson CNM by Terrance Roblero, medical chief technician, on 02/19/23 at 10:05 AM, EST Travel Accommodation Inspector: Travel Accommodation Inspector Present (Laure) Allergies Augmentin Allergy (Unknown, Uncoded 02/19/23 09:28) Unknown Cyclobenzaprine HCl Allergy (Unknown, Uncoded 02/19/23 09:28) Unknown Oxycodone HCl Allergy (Unknown, Uncoded 02/19/23 09:28) Unknown Penicillin Allergy (Unknown, Uncoded 02/19/23 09:28) Unknown Is last menstrual period known: Yes Last menstrual period: 01/13/23 HPI HPI Comments History of Present Illness Details The patient is a perimenopausal woman, here today for an US review & endometrial biopsy for AUB to rule out any pathology including atypical, hyperplasia or cancer cells of the uterus. She was counseled regarding anticipatory guidance for the procedure including the risks for pain, infection, bleeding, perforation, potential injury to the tissues may include the cervix, uterus, tubes, bladder and bowels. These injuries may include further treatment and evaluation including surgery, blood transfusions, antibiotics, hospitalizations and anesthesia. Permanent injury and scarring can occur. She was consented for the procedure, and the consent forms were signed. She is agreeable to have the procedure today. All questions were answered. A urine test was obtained and was negative. She denies any risks to . She reports experiencing hot flashes primarily in the week prior to menses. She complains of some vaginal swelling & discharge, and has a hx of BV. She reports feelings of depression. She has previously been on Cymbalta, prescribed by her PCP, but she discontinued her medication. [facility] Medical History Abnormal uterine bleeding (AUB) Hot flashes Anxiety Depression Fibromyalgia Arthritis H/O degenerative disc disease Surgical History Hx of cholecystectomy Hx of tubal ligation Hx of knee surgery History of back surgery Family History Mother Cervical cancer Father Throat cancer Paternal Grandmother History of breast cancer Social History Housing: Apartment Patient Tobacco Use Status: Current everyday Tobacco user Cigarette Packs Per Day: 1 Cigarettes Per Day: 20 e-Cigarette/Vaping Use: Never Used Second Hand Smoke Exposure: No service: No Current occupational status: disabled Cognitive needs: No Hearing needs: No Vision needs: No Female Reproductive History Menstrual Age of Menarche: 14 Date of last menstrual period: 01/13/23 Review of Systems Const All systems reviewed & are unremarkable except as noted in HPI and below Physical Exam Vital Signs: Last Vital Signs BP 118/80 02/19/23 09:27 BMI result Body Mass Index 30.0 Const General: cooperative, healthy appearing and no acute distress Orientation/consciousness: patient oriented x3 GI Inspection: Yes normal to inspection Palpation (GI): Soft to palpation and Other GI palpation findings present (Nontender) Rectal Exam - Female: visual inspection normal Other: Clear mucous discharge from cervix General: Yes bladder normal to palpation External Female Exam: normal appearance of the urethra Speculum Exam - Vagina: normal appearance of the vagina, normal palpation and normal vaginal discharge Speculum Exam - Cervix: normal appearance of the cervix and normal palpation Bimanual exam- vagina & uterus: normal bimanual exam, normal palpation, uterine size normal, bladder normal to palpation, normal palpation, uterine shape normal and non-tender Bimanual Exam- Adnexa, other: normal adnexae Neuro General: patient oriented x3 Office Procedures Endometrial Biopsy Details: The patient was placed in the dorsal lithotomy position and a sterile speculum inserted. Using aseptic technique for the procedure. The cervix was cleansed with Betadine x 3 swabs. A single toothed tenaculum was placed on the cervix for stabilization and the uterus was sounded to 9 cm with a 4mm pipelle for 3 passes. Minimal bleeding was observed. The patient tolerated the procedure well and was in good condition when leaving the department. The tissue sample was placed in formalin in a patient labeled container by staff assisting and sent to the pathology department for processing and interpretation. The patient tolerated the procedure well. Endometrial Biopsy Post Procedure Care Nothing in the vagina including: tampons, douching or sex for 3 days. There may be some post procedure bleeding for several days, this bleeding is usually light and may turn to a light brown or pink color. Mild cramps may occur. You may take an over the counter mild analgesic such as Tylenol or Advil (if no allergies) per the manufacturers recommendation on dosing, frequency, and follow the directions completely. Call the office if any: SOB, fatigue, lightheadedness/dizziness, abd pain (worse than cramping), bloating or abd distention, foul odor or abnormal discharge or heavy vaginal bleeding. You will be scheduled for a follow up visit for results, either in person or on the phone when the results are completed in a few weeks. [id number] Biopsy Results AMB Test Urine AMB Test Urine Negative Last Edit by FERMIN Gonzalez on 02/19/23 09:34 Results Reviewed Results Reviewed: Laboratory Last Values Tst Clinic Negative 02/19/23 09:34 FINDINGS: The uterus is of normal size and echogenicity measuring 7.5 x 4.7 x 4.9 cm. A regular homogeneous endometrium is identified measuring 0.4 cm. Nabothian cysts in the cervix. Both ovaries are of normal size and echogenicity. The right measures 2.1 x 1.3 x 2.2 cm for a volume of 3.1 mL. The left measures 2.3 x 1.7 x 1.7 cm for a volume of 3.5 mL. There is no pelvic free fluid. US/US pelvic and transvaginal IMPRESSION: Unremarkable pelvic ultrasound. Assessment & Plan Assessment & Plan (1) Abnormal uterine bleeding (AUB): Code(s): N93.9 - Abnormal uterine and vaginal bleeding, unspecified Plan: Reviewed: US results and prior lab findings. EMBx done today, see procedure note. Instructed patient nothing in the vagina including: tampons, douching or sex for 3 days. She may take an over the counter mild analgesic such as Tylenol or Advil (if no allergies) per the automatic vulcanizing operator?s recommendation on dosing, frequency, and follow the directions completely. Warnings reviewed with patient. Instructions given to call if temp >100.4, flu like sx, SOB, fatigue, lightheadedness/dizziness, abd pain (worse than cramping), bloating or abd distention, foul odor or abnormal discharge or heavy vaginal bleeding. Return for test results in 2 weeks. BV panel obtained. Counseled re: Mirena, booklet given. Discussed use of Mirena IUD to manage AUB. Will discuss more at next appointment. (2) Vaginal discharge: Code(s): N89.8 - Other specified noninflammatory disorders of vagina Plan: BV testing ordered (3) Vaginal irritation: Code(s): N89.8 - Other specified noninflammatory disorders of vagina (4) Hot flashes: Code(s): R23.2 - Flushing Orders: Orders Bacterial Vaginosis Panel Today N89.8 - Other specified noninflammatory disorders of vagina AMB HCG Urine Test Today N93.9 - Abnormal uterine and vaginal bleeding, unspecified Surgical Today N93.9 - Abnormal uterine and vaginal bleeding, unspecified Coding Level of Care Code Procedure Only Diagnoses Abnormal uterine bleeding (AUB) N93.9 Vaginal discharge N89.8 Vaginal irritation N89.8 Hot flashes R23.2 CPT Codes Endometrial Biopsy - CPT: 03416-[id number] Biopsy ([id number])
== END 2023-02-19 10:15 | disposition home or self-care (01) ==
LOC: HO.HWS 09:21
PROVIDERS: PCP Nurse Practitioner Family; Visit Provider Advanced Practice Midwife
DX: N93.9 Abnormal uterine and vaginal bleeding, unspecified (principal); N89.8 Other specified noninflammatory disorders of vagina; R23.2 Flushing
CPT/HCPCS: 58100

== ENCOUNTER 2023-02-19 09:21 | Outpatient (REF) | payer OTHER, SELFPAY ==
[2023-02-20 09:58] LABS: BV Int Neg Control Negative (Negative); BV Int Pos Control Positive (Positive)
== END 2023-02-19 09:22 | disposition home or self-care (01) ==
LOC: HO.LAB 09:21
PROVIDERS: PCP Nurse Practitioner Family; Visit Provider Advanced Practice Midwife
DX: N93.9 Abnormal uterine and vaginal bleeding, unspecified (principal); N89.8 Other specified noninflammatory disorders of vagina; R23.2 Flushing
CPT/HCPCS: 58100; 81025; 87480; 87510; 87660; 88305

== ENCOUNTER 2023-02-21 10:38 | Outpatient (AMB) | payer OTHER, SELFPAY ==
--- NOTE | 2023-02-21 10:39 | MHC.OFFVIS ---
Intake Intake Visit Reasons: EMB results Intake Note: Scribed for Joanie Peterson CNM by De Aldana medical records coordinator, on 02/21/23 at , EST. Allergies Augmentin Allergy (Unknown, Uncoded 02/21/23 10:44) Unknown Cyclobenzaprine HCl Allergy (Unknown, Uncoded 02/21/23 10:44) Unknown Oxycodone HCl Allergy (Unknown, Uncoded 02/21/23 10:44) Unknown Penicillin Allergy (Unknown, Uncoded 02/21/23 10:44) Unknown HPI EMB results HPI Details 47-year-old female who presents today for a follow-up review of the EMB results, hx. of AUB. She has not bled again. She wants to discuss a plan of care related to her bleeding. She also reports external irritation. She is a smoker. She was tested negative for Yael, Gardnerella, and Trichomonas on 02/21/23. [facility] Medical History Abnormal uterine bleeding (AUB) Hot flashes Anxiety Depression Fibromyalgia Arthritis H/O degenerative disc disease Surgical History Hx of cholecystectomy Hx of tubal ligation Hx of knee surgery History of back surgery Family History Mother Cervical cancer Father Throat cancer Paternal Grandmother History of breast cancer Social History Housing: Apartment Patient Tobacco Use Status: Current everyday Tobacco user Cigarette Packs Per Day: 1 Cigarettes Per Day: 20 e-Cigarette/Vaping Use: Never Used Second Hand Smoke Exposure: No service: No Current occupational status: disabled Cognitive needs: No Hearing needs: No Vision needs: No Female Reproductive History Menstrual Age of Menarche: 14 Review of Systems Const All systems reviewed & are unremarkable except as noted in HPI and below Physical Exam Other: Only a visual examination was performed today with speculum into the vaginal canal. Internal labia were normal. There is no erythema or edema, no lesions, no abnormal discharge. Results Reviewed Results Reviewed: 01/31/23: US PELVIS COMPLETE FINDINGS: The uterus is of normal size and echogenicity measuring 7.5 x 4.7 x 4.9 cm. A regular homogeneous endometrium is identified measuring 0.4 cm. Nabothian cysts in the cervix. Both ovaries are of normal size and echogenicity. The right measures 2.1 x 1.3 x 2.2 cm for a volume of 3.1 mL. The left measures 2.3 x 1.7 x 1.7 cm for a volume of 3.5 mL. There is no pelvic free fluid. IMPRESSION: Unremarkable pelvic ultrasound. 02/19/23: Endometrium biopsy: Benign proliferative endometrium and benign endocervical glandular mucosa; no atypia or carcinoma. Comment: Some fragments may be derived from a benign polyp Assessment & Plan Assessment & Plan (1) Abnormal uterine bleeding (AUB): Code(s): N93.9 - Abnormal uterine and vaginal bleeding, unspecified Plan: Counseled re: hormonal options for treatment. Hormonal including non estrogen products. I recommended Mirena IUD to the patient today. She can do expectant management or other control if there are no medical contraindications. She opts to not have a Mirena and to continue with observation/expectant management. Counseled re: perimenopause verses menopause changes. Monitor menstrual cycles, report any unscheduled bleeding, bleeding episodes <21 days apart or heavy/prolonged menstrual bleeding. Menopause occurs after a full 12 months of absent menses. Advised to call if any further AUB episodes and for a treatment plan. (2) Encounter to discuss test results: Code(s): Z71.2 - Person consulting for explanation of examination or test findings Plan: She will follow up with her doctor to review the results. (3) Vulvar irritation: Code(s): N90.89 - Other specified noninflammatory disorders of vulva and perineum Plan: It is advised to use a thin coat of Vaseline to the area, and a cool cloth prn. If the irritation persists or worsens, then inform us. The patient will follow up PRN. She will follow-up in September 2023 for annual PLUGGER WORKER examination. (4) Endometrial polyp: Code(s): N84.0 - Polyp of corpus uteri Plan: Discussed findings of EMB-fragments of polpy tissue, recommendations: offered hysteroscopy, due to risks of tissue remaining and slight risks of polyp developing into abnormal polyp, atypia, possible uterine cancer. She opts to have the procedure. Appt. follow up for Hysteroscopy with MD planned. Coding Level of Care Code Est Pt Level 3 (08626) Diagnoses Abnormal uterine bleeding (AUB) N93.9 Encounter to discuss test results Z71.2 Vulvar irritation N90.89 Endometrial polyp N84.0
== END 2023-02-21 11:08 | disposition home or self-care (01) ==
LOC: HO.HWSW 10:38
PROVIDERS: PCP Nurse Practitioner Family; Visit Provider Advanced Practice Midwife
DX: N93.9 Abnormal uterine and vaginal bleeding, unspecified (principal); Z71.2 Person consulting for explanation of examination or test findings; N90.89 Other specified noninflammatory disorders of vulva and perineum; N84.0 Polyp of corpus uteri
CPT/HCPCS: 99213

== ENCOUNTER → 2023-02-21 10:38 | Outpatient (BNVA) | payer OTHER, SELFPAY | PROVIDERS: PCP Nurse Practitioner Family; Visit Provider Advanced Practice Midwife | DX: Z71.2 Person consulting for explanation of examination or test findings (principal); N93.9 Abnormal uterine and vaginal bleeding, unspecified; N90.89 Other specified noninflammatory disorders of vulva and perineum; N84.0 Polyp of corpus uteri | CPT/HCPCS: 99212 ==

== ENCOUNTER 2023-04-16 07:29 | Outpatient (AMB) | payer OTHER, SELFPAY ==
--- NOTE | 2023-04-16 07:36 | A.OFFVIS_ITS ---
Intake Vital Signs 04/16/23 07:38 Height 5 ft 2 in Weight 164 lb BMI 30.0 BP 100/64 Intake Visit Reasons: Consult Re:Endo Polyp/Per Joanie Heart Retail Tire Sales Manager: Retail Tire Sales Manager Present Allergies Augmentin Allergy (Unknown, Uncoded 04/16/23 07:38) Unknown Cyclobenzaprine HCl Allergy (Unknown, Uncoded 04/16/23 07:38) Unknown Oxycodone HCl Allergy (Unknown, Uncoded 04/16/23 07:38) Unknown Penicillin Allergy (Unknown, Uncoded 04/16/23 07:38) Unknown Is last menstrual period known: Yes Last menstrual period: 04/09/23 Post menopausal: No Patient : No Do you need a note to return to daycare/school/sports/work: Yes (for surgery on saturday) HPI HPI Comments History of Present Illness Details The patient is presenting referred from Joanie Peterson CNM for endometrial polyp fragment seen on EMB pathology. The patient was seen for abnormal uterine bleeding f and the following workup and options of treatment. The following was done.: 02/04 H&H= 14/41.5 TSH, GC and chlamydia were negative. Endometrial biopsy pathology showed the following: Endometrium, biopsy: Benign proliferative endometrium and benign endocervical glandular mucosa; no atypia or carcinoma. Comment: Some fragments may be derived from a benign polyp. Co testing was done in 11/04 was negative. Pelvic ultrasound was unremarkable Last mammogram in outside facility a year ago [facility] Medical History Abnormal uterine bleeding (AUB) Hot flashes Anxiety Depression Fibromyalgia Arthritis H/O degenerative disc disease Surgical History Hx of cholecystectomy Hx of tubal ligation Hx of knee surgery History of back surgery Family History Mother Cervical cancer Father Throat cancer Paternal Grandmother History of breast cancer Social History Housing: Apartment Patient Tobacco Use Status: Current everyday Tobacco user Cigarette Packs Per Day: 1 Cigarettes Per Day: 20 e-Cigarette/Vaping Use: Never Used Second Hand Smoke Exposure: No service: No Current occupational status: disabled Cognitive needs: No Hearing needs: No Vision needs: No Female Reproductive History Menstrual Age of Menarche: 14 Date of last menstrual period: 04/09/23 Total pregnancies: 2 Full term: 2 Review of Systems Card Reports as per HPI and Reports no additional complaints Resp Reports as per HPI and Reports no additional complaints GI Reports as per HPI and Reports no additional complaints Reports as per HPI Physical Exam Const General: cooperative, healthy appearing and comfortable Chest Chest palpation & inspection: normal inspection of the chest and normal palpation of entire chest wall Breast/axilla inspection: normal inspection of the breasts and normal inspection of the axillae Breast/axilla palpation: normal palpation of the breasts, normal palpation of the axillae and no axillary lymphadenopathy Resp Effort & Inspection: normal respiratory effort Auscultation: clear to auscultation bilaterally Percussion: percussion normal Cardio Palpation: normal PMI Rate: regular rate Rhythm: regular rhythm Heart sounds: no murmurs and no rubs Peripheral pulses: Peripheral pulses 2+ throughout GI Inspection: Yes normal to inspection Palpation (GI): Soft to palpation, nontender, no guarding, not rigid and No hepatosplenomegaly present Percussion: Yes normal to percussion Auscultation: normal bowel sounds Rectal Exam - Female: deferred Assessment & Plan Assessment & Plan (1) Abnormal uterine bleeding (AUB): Comment: Endometrial polyp fragments on EMB pathology smoker Code(s): N93.9 - Abnormal uterine and vaginal bleeding, unspecified Plan: Screening mammogram ordered. Discussed with the patient the pathology results showing Some fragments may be derived from a benign polyp , discussed also the patient the results the ultrasound being unremarkable including normal endometrial stripe. Differential diagnosis discussed with the patient included but not limited to small polyp that was aspirated with endometrial pathology is benign in nature versus larger polyp that was not detected by ultrasound. Options of treatment were discussed with the patient including observation with treatment for AUB and if not improved consider hysteroscopy polypectomy/ D&C versus hysteroscopy D&C /possible polypectomy. All the pros and cons risks and benefits of each approach were discussed with the patient, endometrial biopsy being less invasive, office procedure with less sensitivity and inability diagnose a polyp and removal versus hysteroscopy done under anesthesia more invasive more sensitive to endometrial cancer and possibility of diagnosing and endometrial polyp with the possibility of polypectomy. All questions were answered pt verbalized understanding and decided to proceed with hysteroscopy D&C possible polypectomy /myomectomy. Discussed with the patient the procedure , all benefits and risks including but not limited to inability to complete the procedure , bleeding, infection, possible need for blood transfusion with all its risk ( HIV,syphilis, Hepatitis, anaphylaxis shock, others..), injury to bladder, rectum, possible need for laparoscopy/laparotomy or hysterectomy. The patient verbalized understanding and signed the consent. Instructions given the patient to schedule a 2 week postoperative appointment Orders: Orders MM screening mammo BI Today Z12.31 - Encounter for screening mammogram for malignant neoplasm of breast Coding Level of Care Code Est Pt Level 3 (90207) Diagnoses Abnormal uterine bleeding (AUB) N93.9
[2023-04-16 07:38] VITALS: BP 100/64
== END 2023-04-16 07:54 | disposition home or self-care (01) ==
PROVIDERS: PCP Nurse Practitioner Family; Visit Provider Obstetrics & Gynecology
DX: N93.9 Abnormal uterine and vaginal bleeding, unspecified (principal)
CPT/HCPCS: 99213

== ENCOUNTER → 2023-04-16 07:29 | Outpatient (BNVA) | payer OTHER, SELFPAY | PROVIDERS: PCP Nurse Practitioner Family; Visit Provider Obstetrics & Gynecology | DX: N93.9 Abnormal uterine and vaginal bleeding, unspecified (principal); N84.0 Polyp of corpus uteri | CPT/HCPCS: 99212 ==

== ENCOUNTER 2023-04-19 07:45 | Day surgery (SDC) | payer OTHER, SELFPAY ==
[2023-04-19 08:21] VITALS: BMI 29.0
[2023-04-19 08:23] VITALS: BP 108/76; PULSE 87; RESP 18; TEMP 36.7; O2SAT 96
--- NOTE | 2023-04-19 09:11 | HO.ANESPROP2 ---
[facility] Active Problems Active Problems: All Active Problems (Updated 04/16/23 @ 07:45 by Buddy Martinez MD) Vaginal discharge (Acute) Cervical radiculopathy (Acute) Abnormal uterine bleeding (AUB) (Acute) Hot flashes (Acute) Pharyngitis (Acute) Otitis media (Acute) Bilateral conjunctivitis (Acute) Acute conjunctivitis, left eye (Acute) Screening for cervical cancer (Acute) Screening for colon cancer (Acute) Shoulder pain (Acute) Knee pain (Acute) Post laminectomy syndrome (Acute) Chronic pain (Acute) Fibromyalgia (Acute) Osteoarthritis (Acute) Past Medical History Medical History Abnormal uterine bleeding (AUB) Hot flashes Anxiety Depression Fibromyalgia Arthritis H/O degenerative disc disease Family History Family History Mother Cervical cancer Father Throat cancer Paternal Grandmother History of breast cancer Family history of problems with anesthesia: No Surgical History Surgical History Hx of cholecystectomy Hx of tubal ligation Hx of knee surgery History of back surgery History of Problems with Anesthesia: No Social History Social History Housing: Apartment Patient Tobacco Use Status: Current everyday Tobacco user Tobacco use type: Cigarette Cigarette Packs Per Day: 1 Cigarettes Per Day: 20 Smoked in Last 30 Days: Yes e-Cigarette/Vaping Use: Never Used Patient Interested in Nicotine Replacement: No Second Hand Smoke Exposure: No Substance Use Frequency: Daily Are you DNR?: No Advance Directives: No Advance Directives Information Provided: Yes Nutrition Risks: No Nutritional Risk FDLMP: 04/09/23 service: No Current occupational status: disabled Cognitive needs: No Hearing needs: No Vision needs: No Meds Allergies Allergy/AdvReac Type Severity Reaction Status Date / Time Augmentin Allergy Unknown Unknown Uncoded 04/16/23 07:38 Cyclobenzaprine HCl Allergy Unknown Unknown Uncoded 04/16/23 07:38 Oxycodone HCl Allergy Unknown Unknown Uncoded 04/16/23 07:38 Penicillin Allergy Unknown Unknown Uncoded 04/16/23 07:38 Active Medications: Current Medications Fentanyl (Fentanyl Citrate/Pf 100 Mcg/2 Ml Vial) 25 mcg IVPUSH Q5M PRN; Protocol PRN Reason: Pain, Moderate(Pain Scale 4-6) Amiodarone HCl 900 mg/ Sodium (Chloride) 518 mls @ 34.533 mls/hr IVCONT .[id number] SABRINA; Protocol Lactated Ringer's (Lr) 1,000 mls @ 80 mls/hr IVCONT .[id number] SABRINA Ondansetron HCl (Ondansetron Hcl 4 Mg/2 Ml Vial) 4 mg IVPUSH ONCE PRN PRN Reason: Nausea and Vomiting Home Medications Medication Instructions Recorded Confirmed Last Taken Type No Known Home Meds 02/21/23 02/21/23 Unknown History Exam Height,Weight and Vital Signs: Height 5 ft 3 in Weight 74.389 kg Last Vital Signs Temp 98.0 F 04/19/23 08:23 Pulse 87 04/19/23 08:23 Resp 18 04/19/23 08:23 BP 108/76 04/19/23 08:23 Pulse Ox 96 04/19/23 08:23 O2 Del Method Room Air 04/19/23 08:23 Pertinent Lab Results Pertinent Lab Results: Laboratory Tests 04/19/23 08:00 Urine Test NEGATIVE Airway Mallampati Class: II TM Dist: >3cm Neck ROM: Full Loose/Missing/Broken Teeth: No Heart: rrr Lungs: clear Assessment and Plan Final Anesthetic Review Family History of Problems with Anesthesia: No History of Problems with Anesthesia: No NPO: Yes ASA Class: II Final Preanesthetic Review: No Changes in Pt Med Stat, Meds/Allgs Chart Reviewed, Consent Obtained/Reviewed and Anes Risks/Benef Reviewed Patient Risk: Intermediate Procedure Risk: Low Anesthetic Plan Anesthetic Plan: GA Disposition: Standard PACU
--- NOTE | 2023-04-19 09:26 | MHC.SHP ---
Pre-Procedural Eval Section A Date of Service: 04/19/23 The patient is an INPATIENT: No Changes since office visit: No Cold of Flu in the past 2 weeks, No New Medical Problems, No Changes in Medication and No Patient answered all questions The History & Physical has been completed within 30 days and I have reviewed it.: Yes Section B Chief Complaint: Abnormal uterine and vaginal bleeding, Allergies: Allergies Allergy/AdvReac Type Severity Reaction Status Date / Time Augmentin Allergy Unknown Unknown Uncoded 04/16/23 07:38 Cyclobenzaprine HCl Allergy Unknown Unknown Uncoded 04/16/23 07:38 Oxycodone HCl Allergy Unknown Unknown Uncoded 04/16/23 07:38 Penicillin Allergy Unknown Unknown Uncoded 04/16/23 07:38 Plan Diagnosis/Plan: Unchanged I have reviewed the history and physical and performed a pertinent physical examination on my patient. No changes have occurred unless specified. Time Spent With Patient Time: Total time managing care of this patient today ____ minutes.
--- NOTE | 2023-04-19 09:38 | PC.NURSE ---
dr. villa aware that patient is a smoker of cigarettes and marijuana. occ. smokers cough noted. lcta. no interventions at this time.
--- NOTE | 2023-04-19 10:15 | PM.OP ---
Brief Operative Note Date of Service: 04/19/23 Pre-op diagnosis: Abnormal uterine bleeding, fragments of endometrial polyp on EMB pathology Post-op diagnosis: same (Endometrial polyp) Procedure: Hysteroscopy D&C, Polypectomy Surgeon: Buddy Martinez MD Anesthesia: GLMA Was an Biofuels Manager used for this Procedure?: No Estimated blood loss (mL): 0 Pathology: other (Endometrial Scrapping. Polyp) Condition: stable Disposition: PACU
--- NOTE | 2023-04-19 10:15 | W.PM.OPN ---
Operative Note Operative Note Date of Service: 04/19/23 Narrative: Preop Diagnosis: Abnormal uterine bleeding, fragment of Endometrial polyp on EMB pathology Operation: Diagnostic Hysteroscopy, Dilataion & Curettage and polypectomy Post Op Diagnosis: Endometrial Polyp QBL: Minimal Anesthesia: GLMA Surgeon: Buddy Martinez MD Food Technologist: None Complication: None Pathology: Endometrial Scrapings, Endometrial polyp Procedure: The patient was put in the dorsal lithotomy position, scrubbed, and draped in the usual manner. A sterile speculum was inserted in the patient's vagina. The anterior lip of the cervix was grasped with a single tooth tenaculum. The cervix was dilated up to 5 mm, then the scope was inserted in the patient's uterus. Inspection revealed endometrial polyp. The Myosure Reach device was used; it was introduced through the operative channel and polypectomy done with no complications. The scope was then taken out from the uterine cavity, sharp curettings was carried on with minimal to moderate amount of tissues retrieved. At the end of the procedure, all instruments were taken out of the patient uterine and vaginal cavity. The single tooth tenaculum was removed and homeostasis was assured using pressure,. The patient tolerated the procedure well and was transferred to the PACU in a stable condition.
[2023-04-19 10:23] VITALS: BP 129/72; PULSE 72; RESP 18; TEMP 36.3; O2SAT 100
[2023-04-19 10:28] VITALS: BP 134/77; PULSE 72; RESP 16; O2SAT 100
[2023-04-19 10:33] VITALS: BP 123/72; PULSE 64; RESP 16; O2SAT 100
[2023-04-19 10:38] VITALS: BP 115/62; PULSE 67; RESP 16; TEMP 36.2; O2SAT 100
[2023-04-19 10:53] VITALS: BP 117/75; PULSE 65; RESP 16; TEMP 36.1; O2SAT 100
== END 2023-04-19 11:07 | disposition home or self-care (01) ==
PROVIDERS: PCP Nurse Practitioner Family; Visit Provider Obstetrics & Gynecology
PROC: 0UDB8ZZ Extraction of Endometrium, Via Natural or Artificial Opening Endoscopic (ICD-10-PCS; CPT 58558; principal; 2023-04-19 09:30)
DX: N93.9 Abnormal uterine and vaginal bleeding, unspecified (principal); N84.0 Polyp of corpus uteri; Z98.51 Tubal ligation status; F32.A Depression, unspecified; F41.9 Anxiety disorder, unspecified; M79.7 Fibromyalgia; M19.90 Unspecified osteoarthritis, unspecified site; Z88.0 Allergy status to penicillin; Z88.1 Allergy status to other antibiotic agents; Z98.890 Other specified postprocedural states; F17.210 Nicotine dependence, cigarettes, uncomplicated
CPT/HCPCS: 58558; 81025; 88305; J0282; J1100; J1885; J2250; J2405; J2704; J3010

== ENCOUNTER → 2023-04-19 07:45 | Outpatient (BNV) | payer OTHER, SELFPAY | PROVIDERS: PCP Nurse Practitioner Family; Visit Provider Obstetrics & Gynecology | DX: N93.9 Abnormal uterine and vaginal bleeding, unspecified (principal); N84.1 Polyp of cervix uteri | CPT/HCPCS: 58558 ==

== ENCOUNTER 2023-05-14 08:31 | Outpatient (AMB) | payer OTHER, SELFPAY ==
--- NOTE | 2023-05-14 08:39 | A.OFFVIS_ITS ---
Intake Vital Signs 05/14/23 08:41 Height 5 ft 2 in Weight 164 lb BMI 30.0 BP 112/70 Intake Visit Reasons: post op Allergies Augmentin Allergy (Unknown, Uncoded 04/16/23 07:38) Unknown Cyclobenzaprine HCl Allergy (Unknown, Uncoded 04/16/23 07:38) Unknown Oxycodone HCl Allergy (Unknown, Uncoded 04/16/23 07:38) Unknown Penicillin Allergy (Unknown, Uncoded 04/16/23 07:38) Unknown HPI HPI Comments History of Present Illness Details The patient is presenting post hysteroscopy D&C no complaints minimal vaginal bleeding no feverishness chills or abdominal pain. The pathology showed the following: A. Endometrium, curettage: Disordered weakly proliferative endometrium with focal squamous morule formation; no atypia identified. See comment. B. Endometrium, polypectomy: Fragments of endometrial polyp; no atypia identified. COMMENT (A): Squamous morular metaplasia carries a mildly increased risk of an endometrial cancer outcome (approximately 5%) and may resolve spontaneously. However, follow-up with a repeat endometrial sample in approximately 3-6 months is advised to exclude persistence, as clinically appropriate PFS Medical History Abnormal uterine bleeding (AUB) Hot flashes Anxiety Depression Fibromyalgia Arthritis H/O degenerative disc disease Surgical History Hx of cholecystectomy Hx of tubal ligation Hx of knee surgery History of back surgery Family History Mother Cervical cancer Father Throat cancer Paternal Grandmother History of breast cancer Social History Housing: Apartment Patient Tobacco Use Status: Current everyday Tobacco user Tobacco use type: Cigarette Cigarette Packs Per Day: 1 Cigarettes Per Day: 20 e-Cigarette/Vaping Use: Never Used Second Hand Smoke Exposure: No service: No Current occupational status: disabled Cognitive needs: No Hearing needs: No Vision needs: No Female Reproductive History Menstrual Age of Menarche: 14 Review of Systems Const All systems reviewed & are unremarkable except as noted in HPI and below Reports as per HPI and Reports no additional complaints GI Reports no additional complaints Reports no additional complaints Physical Exam Vital Signs: Last Vital Signs BP 112/70 05/14/23 08:41 BMI result Body Mass Index 30.0 Assessment & Plan Assessment & Plan (1) Abnormal uterine bleeding (AUB): Comment: Squamous Morules on D&C path Code(s): N93.9 - Abnormal uterine and vaginal bleeding, unspecified Plan: Discussed with the patient the results the pathology showing squamous morular metaplasia, and its association with an increased risk of an endometrial cancer or may resolve spontaneously . Options of treatment discussed with the patient included either progesterone treatment p.o. or levo norgestrel IUD or surgical management. All pros and cons, risks and benefits of each approach were discussed with the patient, the patient decided to proceed with surgical treatment, will refer to Gyne Onc for further management. Appointment scheduled at [facility] with Dr. Monteiro on 05/22/2023 at 10:20 am, the patient is aware. Orders: Referrals Gynecologic Oncology Referral N93.9 - Abnormal uterine and vaginal bleeding, unspecified Coding Level of Care Code Est Pt Level 3 (52829) Diagnoses Abnormal uterine bleeding (AUB) N93.9
[2023-05-14 08:41] VITALS: BP 112/70
== END 2023-05-14 09:19 | disposition home or self-care (01) ==
LOC: HO.HWS 08:31
PROVIDERS: PCP Nurse Practitioner Family; Visit Provider Obstetrics & Gynecology
DX: N93.9 Abnormal uterine and vaginal bleeding, unspecified (principal)
CPT/HCPCS: 99213

== ENCOUNTER → 2023-05-14 08:31 | Outpatient (BNVA) | payer OTHER, SELFPAY | PROVIDERS: PCP Nurse Practitioner Family; Visit Provider Obstetrics & Gynecology | DX: N85.8 Other specified noninflammatory disorders of uterus (principal); Z98.890 Other specified postprocedural states | CPT/HCPCS: 99212 ==

== ENCOUNTER 2023-05-21 07:36 | Outpatient (REF) | payer OTHER, SELFPAY ==
--- NOTE | ~2023-05-21 | MM_ITS ---
EXAMINATION: MM SCREENING DIGITAL BREAST TOMOSYNTHESIS, BILATERAL CLINICAL INFORMATION: Screening. Asymptomatic. COMPARISON: Mammography: This study is compared with prior exams dating back to 2016. TECHNIQUE: Digital breast tomosynthesis is performed in both the craniocaudal and mediolateral oblique views along with computer-aided detection (CAD). Synthesized 2D images are generated from the tomosynthesis. FINDINGS: There are scattered areas of fibroglandular density (ACR BI-RADS breast composition Category b). In the upper outer quadrant of the left breast, anterior depth, there are grouped calcifications which warrant additional mammographic imaging with magnification. In the right breast, there are no are no significant masses, abnormal calcifications, or other abnormalities. MM/MM tomosynthesis screening BI IMPRESSION: Left breast calcifications warrant additional mammographic imaging with magnification. No mammographic signs of malignancy right breast. ASSESSMENT: BI-RADS BI-RADS 0 - Incomplete: Needs additional Imaging. RECOMMENDATION: Additional views of the left breast. Radiology department staff will contact the patient for additional imaging. Additional Imaging required This examination should not preclude the clinical evaluation of a suspicious palpable abnormality. This patient's information was entered into a reminder system with a target due date for their next mammogram.
== END 2023-05-21 07:37 | disposition home or self-care (01) ==
LOC: HO.MAMMO 07:36
PROVIDERS: PCP Nurse Practitioner Family; Visit Provider Obstetrics & Gynecology
DX: Z12.31 Encounter for screening mammogram for malignant neoplasm of breast (principal)
CPT/HCPCS: 77063; 77067

== ENCOUNTER → 2023-05-21 07:45 | Outpatient (BNV) | payer OTHER, SELFPAY | PROVIDERS: PCP Nurse Practitioner Family; Visit Provider Radiology Diagnostic Radiology | DX: Z12.31 Encounter for screening mammogram for malignant neoplasm of breast (principal) | CPT/HCPCS: 77063; 77067 ==

== ENCOUNTER 2023-06-06 08:17 | Outpatient (AMB) | payer OTHER, SELFPAY ==
--- NOTE | 2023-06-06 08:22 | A.OFFVIS_ITS ---
Intake Vital Signs 06/06/23 08:23 Height 5 ft 2 in Weight 164 lb BMI 30.0 BP 114/64 Intake Visit Reasons: follow up Retail Salesperson Required: No Allergies Augmentin Allergy (Unknown, Uncoded 06/06/23 08:23) Unknown Cyclobenzaprine HCl Allergy (Unknown, Uncoded 06/06/23 08:23) Unknown Oxycodone HCl Allergy (Unknown, Uncoded 06/06/23 08:23) Unknown Penicillin Allergy (Unknown, Uncoded 06/06/23 08:23) Unknown Patient : No HPI HPI Comments History of Present Illness Details The patient is presenting for follow-up. Was referred to Gyne Onc at [facility] for a consult, endometrial scraping pathology was reviewed by the pathologist and stated that there was no evidence of squamous morules Dr. Monteiro recommended against hysterectomy. The following workup for abnormal uterine bleeding was done.: H&H= 14/41.5 TSH, GC and chlamydia were negative. Co testing was done was negative. Office EMB pathology showed the following: Endometrium, biopsy: Benign proliferative endometrium and benign endocervical glandular mucosa; no atypia or carcinoma. Comment: Some fragments may be derived from a benign polyp The patient underwent Hysteroscopy D and C/polypectomy , the pathology showed the following: A. Endometrium, curettage: Disordered weakly proliferative endometrium with focal squamous morule formation; no atypia identified. See comment. B. Endometrium, polypectomy: Fragments of endometrial polyp; no atypia identified. COMMENT (A): Squamous morular metaplasia carries a mildly increased risk of an endometrial cancer outcome (approximately 5%) and may resolve spontaneously. However, follow-up with a repeat endometrial sample in approximately 3-6 months is advised to exclude persistence, as clinically appropriate Mammogram was done recently and still pending. Pelvic ultrasound was unremarkable [facility] Medical History (Updated 06/06/23 @ 08:52 by Buddy Martinez MD) Abnormal uterine bleeding (AUB) Hot flashes Anxiety Depression Fibromyalgia Arthritis H/O degenerative disc disease Surgical History Hx of cholecystectomy Hx of tubal ligation Hx of knee surgery History of back surgery Family History Mother Cervical cancer Father Throat cancer Paternal Grandmother History of breast cancer Social History Housing: Apartment Patient Tobacco Use Status: Current everyday Tobacco user Tobacco use type: Cigarette Cigarette Packs Per Day: 1 Cigarettes Per Day: 20 e-Cigarette/Vaping Use: Never Used Second Hand Smoke Exposure: No Patient : No service: No Current occupational status: disabled Cognitive needs: No Hearing needs: No Vision needs: No Female Reproductive History Menstrual Age of Menarche: 14 control method: permanent sterilization Date of last pap smear: 11/01/22 (negative) Review of Systems Const All systems reviewed & are unremarkable except as noted in HPI and below Reports as per HPI and Reports no additional complaints GI Reports no additional complaints Reports no additional complaints Physical Exam Vital Signs: Last Vital Signs BP 114/64 06/06/23 08:23 BMI result Body Mass Index 30.0 Assessment & Plan Assessment & Plan (1) Abnormal uterine bleeding (AUB): Code(s): N93.9 - Abnormal uterine and vaginal bleeding, unspecified Plan: Discussed with the patient the review of the pathology at [facility] showing no evidence of squamous morules therefore the risk of future EIN/hyperplasia/malignancy is not increased. Discussed with the patient the results of the work up done and options of treatment including Lysteda, control pills, Mirena IUD and hysterectomy. All pros, cons, risks and benefits if each option was discussed with the patient and the patient decided to go ahead with hysterectomy. Discussed with the patient the different types of hysterectomies including, vaginal, laparoscopic assisted vaginal, robotic assisted laparoscopic,& abdominal with BSO. All pros, cons, r/b of each approach were discussed the patient including evidence that morbidity is less and recovery is shorter with minimally invasive approaches to hysterectomy. Discussed with the patient the lack of availability of the robot DaVinci robot and/or minimally invasive product assurance engineer specialist at [facility]. The Patient requested to be referred to a tertiary care center, [facility]. . Will refer to [facility] OBGYN minimally invasive specialist. Instructed the patient to call our office back in case a referral appointment is not scheduled, missed or canceled so that we will assist on rescheduling another appointment, the patient verbalized understanding agreed with the plan. Coding Level of Care Code Est Pt Level 3 (28020) Diagnoses Abnormal uterine bleeding (AUB) N93.9
[2023-06-06 08:23] VITALS: BP 114/64
== END 2023-06-06 08:56 | disposition home or self-care (01) ==
LOC: HO.HWS 08:17
PROVIDERS: PCP Nurse Practitioner Family; Visit Provider Obstetrics & Gynecology
DX: N93.9 Abnormal uterine and vaginal bleeding, unspecified (principal)
CPT/HCPCS: 99213

== ENCOUNTER → 2023-06-06 08:17 | Outpatient (BNVA) | payer OTHER, SELFPAY | PROVIDERS: PCP Nurse Practitioner Family; Visit Provider Obstetrics & Gynecology | DX: N93.9 Abnormal uterine and vaginal bleeding, unspecified (principal) | CPT/HCPCS: 99212 ==

== ENCOUNTER 2023-06-19 08:01 | Outpatient (AMB) | payer OTHER, SELFPAY ==
[2023-06-19 08:14] VITALS: BP 104/66; PULSE 96; O2SAT 99; BMI 30.5
--- NOTE | 2023-06-19 08:14 | AM.OFFWIN_ITS ---
Intake Vital Signs 06/19/23 08:14 Height 5 ft 2 in Weight 167 lb BMI 30.5 BP 104/66 Blood Pressure Location Rt brachial Position Sitting Pulse 96 Pulse Source Pulse Oximeter Pulse Oximetry (%) 99 Oxygen Delivery Method Room Air Intake Visit Reasons: Est/loss of voice ([phone]) Intake Note: Pt is here today for a walk in visit. Pt c/o headache, sinus pain and pressure,cough, loss of taste and smell for 5 days now. Patient Tobacco Use Status: Current everyday Tobacco user Allergies Augmentin Allergy (Unknown, Uncoded 06/19/23 08:18) Unknown Cyclobenzaprine HCl Allergy (Unknown, Uncoded 06/19/23 08:18) Unknown Oxycodone HCl Allergy (Unknown, Uncoded 06/19/23 08:18) Unknown Penicillin Allergy (Unknown, Uncoded 06/19/23 08:18) Unknown Do you need a note to return to daycare/school/sports/work: No HPI HPI Comments History of Present Illness Details She presents to office with cough.congestion She is a smoker and has a chronic smokers cough which is at baseline She has had 5 days of congestion, sinus pressure, ear pressure and sore throat Has tried tylenol/ibuprofen without relief Denies fever/chills No sick contacts + loss of smell and taste No covid tests obtained No pain scale given [facility] Medical History (Updated 06/19/23 @ 08:35 by Alicia Valencia PA-C) Abnormal uterine bleeding (AUB) Hot flashes Anxiety Depression Fibromyalgia Arthritis H/O degenerative disc disease Surgical History Hx of cholecystectomy Hx of tubal ligation Hx of knee surgery History of back surgery Family History Mother Cervical cancer Father Throat cancer Paternal Grandmother History of breast cancer Social History Housing: Apartment Patient Tobacco Use Status: Current everyday Tobacco user Tobacco use type: Cigarette Cigarette Packs Per Day: 1 Cigarettes Per Day: 20 e-Cigarette/Vaping Use: Never Used Second Hand Smoke Exposure: No service: No Current occupational status: disabled Cognitive needs: No Hearing needs: No Vision needs: No Female Reproductive History Menstrual Age of Menarche: 14 Review of Systems Const Denies body aches, Denies chills, Reports fatigue, Denies fever(s) and Reports headache(s) Eyes Denies blurry vision ENT Denies dizziness, Denies ear discharge, Reports otalgia (pressure), Reports headache(s), Reports nasal congestion, Reports sinus pain, Reports sinus pressure, Reports sore throat, Denies throat swelling and Denies tongue swelling Card Denies chest pain and Denies dyspnea Resp Denies chest congestion, Reports cough and Denies dyspnea GI Denies abdominal pain Neuro Denies dizziness and Reports headache(s) Endo Reports fatigue Aller/Immun Denies throat swelling and Denies tongue swelling Physical Exam Vital Signs: Last Vital Signs Pulse 96 06/19/23 08:14 BP 104/66 06/19/23 08:14 Pulse Ox 99 06/19/23 08:14 Oxygen Delivery Method Room Air 06/19/23 08:14 BMI result Body Mass Index 30.5 General: Non-toxic, NAD. Speaking full sentences. Skin: Warm dry throughout Eye: EOMI HENT: Airway patent. Uvula midline. No pharyngeal erythema or edema. No APPLICATIONS SUPPORT ANALYST. + rhinorrhea and sinus trenderness to palpation maxillary region Bilateral canals clear. TM non-erythematous, non-bulging. No TM perforation or hemotympanum noted. Respiratory: CTA bilaterally. No wheezes, rales or rhonchi Cardiac: RRR. No murmur MSK: Full ROM extremities. Neurology: A/O. No aphasia or facial droop. Gait without abnormality Psych: Good mood and affect Assessment & Plan Assessment & Plan (1) Upper respiratory infection: Code(s): J06.9 - Acute upper respiratory infection, unspecified Qualifiers: URI type: unspecified viral URI Qualified Code(s): J06.9 - Acute upper respiratory infection, unspecified Plan: Patient seen and evaluated. Vitals stable COVID Binex Now: Negative Discussed no concern bacterial at this time. Prednisone with food avoiding alcohol and nsAIDs Call with concerns Patient gave verbal understanding and had no additional questions or concerns at time of discharge All questions answered Orders: Orders BinaxNOW Covid-19 Ag Today J06.9 - Acute upper respiratory infection, unspecified Medications: New prednisone 40 mg (2 x 20 mg) PO DAILY 8 tabs 0RF Coding Level of Care Code Est Pt Level 3 (96791) Diagnoses Viral upper respiratory tract infection J06.9 URI type: unspecified viral URI
== END 2023-06-19 09:16 | disposition home or self-care (01) ==
PROVIDERS: PCP Nurse Practitioner Family; Visit Provider Physician Assistant
DX: J06.9 Acute upper respiratory infection, unspecified (principal)
CPT/HCPCS: 99213

== ENCOUNTER 2023-06-19 08:31 | Outpatient (REF) | payer OTHER, SELFPAY ==
[2023-06-19 08:54] LABS: Binax Internal Control QC Valid; Binax Now Covid-19 Ag Negative (Negative); Binax Performed by: PAULP
== END 2023-06-19 08:32 | disposition home or self-care (01) ==
LOC: HO.HMGCLDS 08:31
PROVIDERS: Visit Provider Physician Assistant
DX: Z11.52 Encounter for screening for COVID-19 (principal); J06.9 Acute upper respiratory infection, unspecified
CPT/HCPCS: 87811

== ENCOUNTER 2023-06-20 08:53 | Outpatient (REF) | payer OTHER, SELFPAY ==
--- NOTE | ~2023-06-20 | MM_ITS ---
EXAMINATION: MM DIAGNOSTIC DIGITAL BREAST TOMOSYNTHESIS, LEFT CLINICAL INFORMATION: Follow-up subtle grouped calcifications anterior left breast upper outer quadrant. COMPARISON: Mammography: Screening mammography 05/21/2023. 03/27/2016. TECHNIQUE: Digital breast tomosynthesis is performed. 2D images are generated from the tomosynthesis. The following views are obtained: Full-field digital left 3-D mediolateral view, and 2-D spot magnification left CC and ML views. FINDINGS: There are scattered areas of fibroglandular density (ACR BI-RADS breast composition Category b). Additional views demonstrate extremely subtle grouped calcifications in the upper outer anterior left breast. These are likely too small and subtle to resolve on stereotactic biopsy. These cannot be definitively visualized on the 3-D left mediolateral view. On magnification views, there is minimal pleomorphism with one linear form, the remaining appearing somewhat rounded and triangular and likely early dystrophic. Six-month follow-up diagnostic mammogram to include standard magnification views recommended to ensure stability. There are no additional abnormal findings in the left breast. MM/MM tomosynthesis added views L IMPRESSION: Extremely subtle calcifications in the upper outer left breast, anterior one third, are probably benign. Six-month follow-up recommended to include standard magnification views to ensure stability. No findings suspicious for malignancy left breast. ASSESSMENT: BI-RADS BI-RADS 3 - Probably benign finding(s) - 12 month follow-up suggested RECOMMENDATION: 6 Month F/U Results were provided to the patient at time of visit by the technologist. This patient's information was entered into a reminder system with a target due date for their next mammogram.
== END 2023-06-20 08:54 | disposition home or self-care (01) ==
LOC: HO.MAMMO 08:53
PROVIDERS: PCP Nurse Practitioner Family; Visit Provider Obstetrics & Gynecology
DX: R92.1 Mammographic calcification found on diagnostic imaging of breast (principal)
CPT/HCPCS: 77061; 77065

== ENCOUNTER → 2023-06-20 09:00 | Outpatient (BNV) | payer OTHER, SELFPAY | PROVIDERS: PCP Nurse Practitioner Family; Visit Provider Radiology Diagnostic Radiology | DX: R92.0 Mammographic microcalcification found on diagnostic imaging of breast (principal) | CPT/HCPCS: 77065; G0279 ==

== ENCOUNTER 2023-12-23 10:45 | Outpatient (REF) | payer OTHER, SELFPAY ==
--- NOTE | ~2023-12-23 | MM_ITS ---
EXAMINATION: MM DIAGNOSTIC DIGITAL BREAST TOMOSYNTHESIS, LEFT CLINICAL INFORMATION: Six-month follow-up for subtle probably benign calcifications upper outer quadrant left breast anterior one third. COMPARISON: Mammography: 06/20/2023, 05/21/2023 (BI-RADS 0). TECHNIQUE: Digital left breast tomosynthesis is performed in both the craniocaudal and mediolateral oblique views along with computer-aided detection (CAD). Synthesized 2D images are generated from the tomosynthesis. In addition, full field 3-D left mediolateral view was obtained, as well as 2-D spot magnification left CC and ML views. FINDINGS: There are scattered areas of fibroglandular density (ACR BI-RADS breast composition Category b). Redemonstration of extremely subtle tiny group of calcifications in the upper outer quadrant anterior left breast. There has been no aggressive change at the morphology or number of the calcifications. They remain completely unchanged and probably benign. Otherwise, no new suspicious findings in the left breast. Parenchymal pattern is unchanged. MM/MM tomosynthesis diagnostic LT IMPRESSION: There are no findings suspicious for malignancy left breast. Stable subtle calcifications remain probably benign upper outer quadrant anterior left breast. Six-month follow-up diagnostic views (standard magnification views) recommended when the patient is due for bilateral screening. ASSESSMENT: BI-RADS BI-RADS 3 - Probably benign finding(s) - 6 month follow-up suggested RECOMMENDATION: 6 Month F/U Results were provided to the patient at time of visit by the technologist. This patient's information was entered into a reminder system with a target due date for their next mammogram. Electronically signed by: Eric Zabala MD 12/23/2023 11:59 AM EDT
== END 2023-12-23 10:46 | disposition home or self-care (01) ==
LOC: HO.MAMMO 10:45
PROVIDERS: PCP Nurse Practitioner Family; Visit Provider Nurse Practitioner Family
DX: R92.1 Mammographic calcification found on diagnostic imaging of breast (principal)
CPT/HCPCS: 77061; 77065

== ENCOUNTER → 2023-12-23 11:00 | Outpatient (BNV) | payer OTHER, SELFPAY | PROVIDERS: PCP Nurse Practitioner Family; Visit Provider Radiology Diagnostic Radiology | DX: R92.1 Mammographic calcification found on diagnostic imaging of breast (principal) | CPT/HCPCS: 77065; G0279 ==

== ENCOUNTER 2024-02-17 08:46 | Emergency (ER) | payer OTHER, SELFPAY ==
--- NOTE | ~2024-02-17 | XR_ITS ---
EXAMINATION: XR CHEST CLINICAL INFORMATION: Right upper back pain. COMPARISON: None available. TECHNIQUE: 2 views of the chest were obtained. FINDINGS: The lungs are clear. The cardiomediastinal silhouette is normal in size. There is no pleural effusion or pneumothorax. No acute osseous abnormality. Right upper quadrant surgical clips. XR/XR chest 2V IMPRESSION: No acute cardiopulmonary findings. Electronically signed by: Chester Arevalo MD 02/17/2024 10:05 AM JERRY
[2024-02-17 08:53] VITALS: BP 133/93; PULSE 96; RESP 16; TEMP 36.1; O2SAT 98; BMI 31.1
[2024-02-17] MEDS: Ketorolac Tromethamine 30 MG/ML VIAL IM (09:30)
[2024-02-17 09:41] LABS: Appearance Urine Clear; Color Urine Yellow; Glucose Urine UA Negative (Negative); Leukocyte Esterase Urine Negative (Negative); Nitrite Urine Negative (Negative); Specific Gravity - Urine 1.015 (1.005-1.025); Urine Blood Negative (Negative); Urine Ketones Negative (Negative); Urine Protein Negative (Neg-Trace)
--- NOTE | 2024-02-17 09:49 | PC.NURSE ---
medication administered per provider order. cyclobenzaprine not administered d/t allergy. provider notified/aware.
--- NOTE | 2024-02-17 09:51 | ED_ITS ---
HPI - Back Pain/Injury General Chief Complaint: Back Pain/Injury Stated Complaint: back pain Time Seen by Provider: 02/17/24 09:04 Source: patient, family, RN notes reviewed and old records reviewed Mode of arrival: ambulatory History of Present Illness ED Provider: Jessica Stern PA-C HPI Narrative: 48-year-old female with a past medical history of anxiety, depression, fibromyalgia, arthritis, degenerative disc disease, cholecystectomy, presenting to the ED complaining of right mid back pain since waking this morning. Reports intermittent paresthesias to RUE. Denies radiation of pain. Denies known injury, trauma, fall, heavy lifting, incontinence/retention, SOB, CP, nausea/vomiting, dysuria/hematuria. Denies taking anything for pain Related Data Previous Rx's ?Medication ?Instructions ?Recorded prednisone 20 mg tablet 40 mg (2 x 20 mg) PO DAILY #8 tabs 06/19/23 acetaminophen 500 mg tablet 500 mg PO Q6H PRN fever or pain 02/17/24 (Tylenol Extra Strength) #14 tabs lidocaine 5 % topical patch 1 patch topical DAILY PRN pain #30 02/17/24 (Lidoderm) ea morphine 15 mg immediate release 15 mg PO Q6H PRN pain (scale score 02/17/24 tablet 7-10) 3 days #9 tabs naproxen 500 mg tablet 500 mg PO BID PRN pain 10 days #20 02/17/24 tabs Allergies Allergy/AdvReac Type Severity Reaction Status Date / Time Augmentin Allergy Unknown Unknown Uncoded 02/17/24 08:55 Cyclobenzaprine HCl Allergy Unknown Unknown Uncoded 02/17/24 08:55 Oxycodone HCl Allergy Unknown Unknown Uncoded 02/17/24 08:55 Penicillin Allergy Unknown Unknown Uncoded 02/17/24 08:55 Review of Systems Review of Systems: Yes all other systems are reviewed and are negative Constitutional: Constitutional: Reports as per [facility] Past Medical History Attestation statement: The following information was validated with the patient. Source: old records reviewed Medical History Abnormal uterine bleeding (AUB) Hot flashes Anxiety Depression Fibromyalgia Arthritis H/O degenerative disc disease Surgical History History of hysterectomy Hx of cholecystectomy Hx of tubal ligation Hx of knee surgery History of back surgery Family History Family History Mother Cervical cancer Father Throat cancer Paternal Grandmother History of breast cancer Social History Social History Housing: Apartment Patient Tobacco Use Status: Current everyday Tobacco user Tobacco use type: Cigarette Cigarette Packs Per Day: 1 Cigarettes Per Day: 20 e-Cigarette/Vaping Use: Never Used Second Hand Smoke Exposure: No Advance Directives: No Advance Directives Information Provided: Yes service: No Current occupational status: disabled Cognitive needs: No Hearing needs: No Vision needs: No Physical Exam Vital Signs: Vital Signs: Last Vital Signs Temp 97.5 F 02/17/24 10:33 Pulse 72 02/17/24 10:33 Resp 14 02/17/24 10:33 BP 122/73 02/17/24 10:33 Pulse Ox 94 02/17/24 10:33 O2 Del Method Room Air 02/17/24 10:33 BMI result Body Mass Index 31.1 Const: General: cooperative, healthy appearing and no acute distress Orientation/consciousness: patient oriented x3 Limitations: no limitations HEENT: Head: Yes normal to inspection and Yes atraumatic Ears: hearing grossly normal bilaterally General nose exam: Normal external nose present Face and sinus: Yes normal facial exam Eyes: General: appearance normal, both eyes and all related structures EOM: EOMs intact bilaterally Neck: Neck: Yes normal visual inspection and Yes no meningeal signs Chest: Other: + reproducible tenderness to right upper scapular region. No rash/erythema/ecchymosis. No flail chest. Pain elicited with movement Chest palpation & inspection: normal inspection of the chest, no crepitus and tenderness Resp: Effort & Inspection: normal respiratory effort and no respiratory distress Auscultation: clear to auscultation bilaterally Cardio: Rate: regular rate Heart sounds: S1 normal heart sound present and S2 normal heart sound present GI: Inspection: Yes normal to inspection Palpation (GI): Soft to palpation, nontender, no guarding and not rigid : General: Yes no CVA tenderness Back/Spine/Pelvis: Other: No midline cervical/thoracic/lumbar spinous tenderness/step-off or deformity Back: no CVA tenderness Skin: Rashes: no rashes Wounds: no wounds Neuro: General: patient oriented x3, gait normal, tone normal, moves all extremities, no meningeal signs and CN's II-XI intact bilaterally Cranial nerves: Yes CN's II-XII intact bilaterally Gait exam (Neuro): Normal gait present Extrem: General: Yes normal to inspection Course Course Course Narrative: XR chest 2V IMPRESSION: No acute cardiopulmonary findings. -UA negative > patient reports mild symptomatic improvement after medications given in the ED Results discussed with patient including worrisome signs and symptoms and strict return precautions, and when to return to the emergency department. They verbalized understanding and feel safe for discharge at this time. Medications Administered Discontinued Medications Generic Name Dose Route Start Last Admin Trade Name Freq PRN Reason Stop Dose Admin Cyclobenzaprine HCl 10 mg 02/17/24 09:21 02/17/24 09:30 Cyclobenzaprine Hcl 10 Mg Tablet PO 02/17/24 09:22 Not Given ONCE ONE Ketorolac Tromethamine 30 mg 02/17/24 09:21 02/17/24 09:30 Ketorolac Tromethamine 30 Mg/Ml Vial IM 02/17/24 09:22 30 mg ONCE ONE Administration Morphine Sulfate 15 mg 02/17/24 09:48 02/17/24 10:00 Morphine Sulfate Immed Release 15 Mg Tablet PO 02/17/24 09:49 15 mg ONCE ONE Administration Medical Decision Making Medical Decision Making [facility] Narrative: 48-year-old female with a past medical history of anxiety, depression, fibromyalgia, arthritis, degenerative disc disease, cholecystectomy presenting to the ED complaining of right mid back pain since waking this morning. On exam vital signs stable, NAD, nontoxic appearing, physical exam as noted above. No midline spinous tenderness throughout or red flag symptoms. Ambulating with steady gait. Concern for MSK pain/strain. No evidence of zoster at this time. Rule out pneumonia vs costochondritis or rib fracture. Lower suspicion for pancreatitis, biliary disease, renal stones/pyelo, ACS Plan: CXR, pain control, UA Please refer to course for remaining clinical decision making, interpretation of labs/imaging results, and discussions with consultants and/or family members. Differential Diagnosis Differential Diagnoses: The differential diagnosis associated with the presentation includes As above Admission/Observation Consideration of admission/observation: Escalation of care including admission/observation considered Lab Data [facility] Lab Attestation statement: I reviewed the patient's lab results. Labs: Lab Results 02/17/24 Range/Units 09:25 Urine Color Yellow Urine Appearance Clear Urine pH 6.0 (5.0-9.0) Ur Specific [place] 1.015 (1.005-1.025) Urine Protein Negative (Neg-Trace) mg/dL Urine Glucose (UA) Negative (Negative) mg/dL Urine Ketones Negative (Negative) mg/dL Urine Blood Negative (Negative) Urine Nitrite Negative (Negative) Ur Leukocyte Esterase Negative (Negative) Independent Interpretation I performed an independent interpretation of an: Plain X-Ray Radiology Impression Discussion of test interpretation with radiology: I have reviewed the radiologist's reading. External Record Review External record reviewed: Inpatient record, Office record, Outpatient record, Prior outpatient labs, Prior outpatient radiology, Primary care record and Outside ED record Tests considered The following testing was considered but not selected: As above Prescription Management I considered prescription management with: Pain Medication Chronic Conditions Patient?s care impacted by: Other Discharge Plan Discharge Clinical Impression: Acute mid back pain Patient Disposition: Home, Self-Care Instructions: Back Pain (ED) Additional Instructions: Your x-ray and urine are reassuring/unremarkable Your pain is likely musculoskeletal Naproxen as an anti-inflammatory / pain medication, take with food Lidoderm patches are numbing patches, apply to painful area In addition take Tylenol at home Morphine as an opiate pain medication, take only when pain is severe for the next 3 days If symptoms persist or worsen, pain becomes unbearable, you developed urinary retention or incontinence, or weakness return to the ED Prescriptions: New acetaminophen [Tylenol Extra Strength] 500 mg tablet 500 mg PO Q6H PRN (Reason: fever or pain) Qty: 14 0RF lidocaine [Lidoderm] 5 % adhesive patch,medicated 1 patch topical DAILY MDD remove after 12 hours PRN (Reason: pain) Qty: 30 0RF Rx Instructions: leave on most painful area for up to 12 hrs morphine 15 mg tablet 15 mg PO Q6H PRN (Reason: pain (scale score 7-10)) 3 Days Qty: 9 0RF Rx Instructions: Partial Fill upon patient request. naproxen 500 mg tablet 500 mg PO BID PRN (Reason: pain) 10 Days Qty: 20 0RF No Action prednisone 20 mg tablet 40 mg PO DAILY Qty: 8 0RF Referrals: Sammy Del Rio, [employer] [Primary Care Provider] - 5 days Interventions: ED Discharge Assessment Last Done: 02/17/24 10:33 Discharge Date/Time: 02/17/24 10:34 Print Language: Croatian
[2024-02-17] MEDS: Morphine Sulfate Immed Release 15 MG TABLET PO (10:00)
[2024-02-17 10:31] VITALS: BP 122/73; PULSE 72; RESP 14; TEMP 36.4; O2SAT 94
[2024-02-17 10:33] VITALS: BP 122/73; PULSE 72; RESP 14; TEMP 36.4; O2SAT 94
== END 2024-02-17 10:34 | disposition home or self-care (01) ==
PROVIDERS: Physician Assistant; Emergency Provider Student in an Organized Health Care Education/Training Program; PCP Nurse Practitioner Family
DX: M54.9 Dorsalgia, unspecified (principal); R20.2 Paresthesia of skin; M54.6 Pain in thoracic spine
CPT/HCPCS: 71046; 81003; 96372; 99283; 99284; J1885

== ENCOUNTER 2024-04-02 08:09 | Outpatient (AMB) | payer OTHER, SELFPAY ==
--- NOTE | 2024-04-02 08:12 | AM.OFFWIN_ITS ---
Intake Vital Signs 04/02/24 08:13 Weight 172 lb 4 oz BP 122/80 Blood Pressure Location Lt brachial Position Sitting Pulse 94 Pulse Source Pulse Oximeter Temp 98.4 F Temp Source Oral Pulse Oximetry (%) 95 Oxygen Delivery Method Room Air Intake Visit Reasons: EP cough, sneezing, running nose, sore throat Intake Note: Patient here for cough, runny nose,headache, loss of taste and smell that started Saturday. Patient Tobacco Use Status: Current everyday Tobacco user Allergies Augmentin Allergy (Unknown, Uncoded 04/02/24 08:27) Unknown Cyclobenzaprine HCl Allergy (Unknown, Uncoded 04/02/24 08:27) Unknown Oxycodone HCl Allergy (Unknown, Uncoded 04/02/24 08:27) Unknown Penicillin Allergy (Unknown, Uncoded 04/02/24 08:27) Unknown Do you need a note to return to daycare/school/sports/work: No HPI HPI Comments History of Present Illness Details History The patient is a 48-year-old female presenting with a head cold that has persisted for six days, during which her symptoms have worsened. She reports a lack of improvement and describes symptoms including a loss of taste, shortness of breath, nasal congestion, and clogged ears. She took two COVID-19 tests at home, which were negative, although she used kits from April of the previous year. The patient experiences wheezing and has a noted oxygen saturatio n of 95%. She has no history of asthma or Chronic Obstructive Pulmonary Disease (COPD) but reports difficulty in breathing. There is a noted reduction in her tobacco use over the past week. Medications taken include NyQuil, DayQuil, and Flonase, which have been causing significant dryness and irritation in her sinuses. She denies experiencing fatigue, body aches, or fever. Physical Exam General: Cooperative, healthy appearing, comfortable and no acute distress Orientation/consciousness: Patient oriented x3 Limitations: No limitations Head: Normal to inspection Ears: Hearing grossly normal bilaterally, external ears normal and TM's normal bilaterally Nose: Normal external nose present, Normal nares present and No nasal discharge present Face and sinus: Normal facial exam and Yes sinuses nontender Mouth: Normal oral and palatal mucosa present and moist mucous membranes Throat: Yes tonsils normal, Yes uvula midline. Posterior oropharynx erythema Eyes: Appearance normal, both eyes and all related structures Neck: Normal visual inspection Respiratory: Clear to auscultation bilaterally. Normal respiratory effort, able to speak in complete sentences, no respiratory distress, not tachypneic, no tripod positioning and no use of accessory muscles, but patient reports shortness of breath and wheezing Cardiovascular: Regular rate and rhythm. Normal S1 and S2 Skin: No rashes or lesions noted Neuro: Patient oriented x3 Extremities: Normal to inspection and Yes no clubbing, cyanosis or edema PFSH Medical History Abnormal uterine bleeding (AUB) Hot flashes Anxiety Depression Fibromyalgia Arthritis H/O degenerative disc disease Surgical History History of hysterectomy Hx of cholecystectomy Hx of tubal ligation Hx of knee surgery History of back surgery Family History Mother Cervical cancer Father Throat cancer Paternal Grandmother History of breast cancer Social History Housing: Apartment Patient Tobacco Use Status: Current everyday Tobacco user Tobacco use type: Cigarette Cigarette Packs Per Day: 1 Cigarettes Per Day: 20 e-Cigarette/Vaping Use: Never Used Second Hand Smoke Exposure: No service: No Current occupational status: disabled Cognitive needs: No Hearing needs: No Vision needs: No Female Reproductive History Menstrual Age of Menarche: 14 Review of Systems Const All systems reviewed & are unremarkable except as noted in HPI and below Physical Exam Vital Signs: Last Vital Signs Temp 98.4 F 04/02/24 08:13 Pulse 94 04/02/24 08:13 BP 122/80 04/02/24 08:13 Pulse Ox 95 04/02/24 08:13 Oxygen Delivery Method Room Air 04/02/24 08:13 Assessment & Plan Assessment & Plan (1) Upper respiratory infection: Code(s): J06.9 - Acute upper respiratory infection, unspecified Qualifiers: URI type: unspecified viral URI Qualified Code(s): J06.9 - Acute upper respiratory infection, unspecified Plan: Plan - Conduct PCR testing for COVID-19, influenza, and Respiratory Syncytial Virus RSV) to accurately diagnose the viral infection. - Prescribe prednisone 20 mg, to be taken in the morning to align with the body?s natural cortisol cycle. - Initiate azithromycin Z-Jere for suspected bacterial involvement, pending results from the chest X-ray. - Instruct the patient to obtain a chest X-ray to rule out pneumonia. - Prescribe saline nasal spray to alleviate nasal dryness and irritation. - Advise the patient on smoking cessation, leveraging the current reduced tobacco use as an opportunity. - Plan to provide a follow-up on test results and further prescriptions if necessary, based on diagnostic outcomes. Patient was informed and verbally consented to the use of an ambient scribe for clinic note documentation during this visit Orders: Orders XR chest 2V Today R05.9 - Cough, unspecified SARS-CoV2/FLU/RSV Today J06.9 - Acute upper respiratory infection, unspecified Medications: New prednisone 20 mg PO QAM 5 tabs 0RF azithromycin For 250 mg dose pack: take 500 mg today (day 1), then 250 mg for 4 days (days 2-5) PO 6 tabs 0RF Coding Level of Care Code Est Pt Level 4 (25216) Diagnoses Viral upper respiratory tract infection J06.9 URI type: unspecified viral URI
[2024-04-02 08:13] VITALS: BP 122/80; PULSE 94; TEMP 36.9; O2SAT 95
== END 2024-04-02 09:26 | disposition home or self-care (01) ==
PROVIDERS: PCP Nurse Practitioner Family; Visit Provider Physician Assistant
DX: J06.9 Acute upper respiratory infection, unspecified (principal)

== ENCOUNTER 2024-04-02 08:09 | Outpatient (REF) | payer OTHER, SELFPAY ==
[2024-04-02 13:13] LABS: Influenza A PCR NEGATIVE (Negative); Influenza B PCR NEGATIVE (Negative); Resp Syncy Virus RNA Qual PCR POSITIVE (Negative); SARS COV2 PCR INHOUSE NEGATIVE (Negative)
== END 2024-04-02 08:10 | disposition home or self-care (01) ==
LOC: HO.LAB 08:09
PROVIDERS: Physician Assistant; PCP Nurse Practitioner Family
DX: Z13.89 Encounter for screening for other disorder (principal)
CPT/HCPCS: 0241U

== ENCOUNTER 2024-04-02 08:39 | Outpatient (REF) | payer OTHER, SELFPAY ==
--- NOTE | ~2024-04-02 | XR_ITS ---
EXAMINATION: XR CHEST CLINICAL INFORMATION: Cough. COMPARISON: Most recent chest radiograph dated 02/17/2024. TECHNIQUE: 2 views of the chest were obtained. FINDINGS: Interstitial prominence with mild patchy opacities, increased when compared to the prior examination. No pleural effusion or pneumothorax. Stable cardiomediastinal silhouette. XR/XR chest 2V IMPRESSION: Interstitial prominence with mild patchy bilateral airspace opacities, increased when compared to the prior examination. Electronically signed by: Chester Arevalo MD 04/03/2024 10:34 PM JERYR AMAYA
== END 2024-04-02 08:40 | disposition home or self-care (01) ==
LOC: HO.HMGCX 08:39
PROVIDERS: PCP Nurse Practitioner Family; Visit Provider Physician Assistant
DX: R05.9 Cough, unspecified (principal); J06.9 Acute upper respiratory infection, unspecified
CPT/HCPCS: 0241U; 71046; 99212

== ENCOUNTER 2024-04-03 19:46 | Emergency (ER) | payer OTHER, SELFPAY ==
--- NOTE | 2024-04-03 | ECG_ITS ---
Test Reason : DYSPNEA/ABD PAIN Blood Pressure : / mmHG Vent. Rate : 097 BPM Atrial Rate : 097 BPM P-R Int : 150 ms QRS Dur : 064 ms QT Int : 330 ms P-R-T Axes : 062 026 011 degrees QTc Int : 419 ms Normal sinus rhythm Possible Left atrial enlargement Low voltage QRS Septal infarct , age undetermined Abnormal ECG When compared with ECG of 17-JUN-2012 08:04, Septal infarct is now Present - could be related to lead positioning Referred By: Generic ED Physician Electronically Signed By:BENNY SINGH
--- NOTE | ~2024-04-03 | XR_ITS ---
EXAMINATION: XR CHEST CLINICAL INFORMATION: Dyspnea. COMPARISON: Most recent chest radiograph dated 04/02/2024. TECHNIQUE: Frontal view of the chest was obtained. FINDINGS: Interstitial prominence with patchy bilateral airspace opacities, most prominent within the left lung base. Findings are slightly increased when compared to the prior chest radiograph. No pleural effusion or pneumothorax. Stable cardiomediastinal silhouette. XR/XR chest 1V IMPRESSION: Interstitial prominence with patchy bilateral airspace opacities, most prominent within the left lung base. Findings are slightly increased when compared to the prior chest radiograph. Findings can be seen in the setting of an infectious or inflammatory process, including viral pneumonia. Electronically signed by: Chester Arevalo MD 04/03/2024 10:34 PM JERRY AMAYA
[2024-04-03 19:56] VITALS: BP 135/93; PULSE 90; O2SAT 96; BMI 31.1
[2024-04-03 19:57] VITALS: BP 115/65; PULSE 110; RESP 22; O2SAT 98
[2024-04-03 20:37] LABS: MANUAL DIFF FLAG NO
[2024-04-03 20:38] LABS: Basophils Absolute Auto 0.1 X10*3/uL (0.0-0.2); Basophils Percent Auto 0.7 % (0-2); Eosinophils Absolute Auto 0.7 X10*3/uL (0.0-0.4); Eosinophils Percent Auto 5.2 % (0-4); Hematocrit 42.8 % (37.0-47.0); Hemoglobin 14.6 g/dl (12.0-16.0); Imm Gran Abs Auto 0.11 X10*3/uL (0.00-0.03); Imm Gran Pct Auto 0.8 % (0.0-0.4); Lymphocytes Absolute Auto 3.3 X10*3/uL (1.2-4.9); Lymphocytes Percent Auto 25.4 % (20-40); Mean Corpuscular HGB Conc 34.1 g/dl (31.0-35.0); Mean Corpuscular Hemoglobin 30.3 pg (27.0-33.0); Mean Corpuscular Volume 88.8 fL (80.0-98.0); Mean Platelet Volume 8.8 fL (9.4-12.3); Monocytes Absolute Auto 0.9 X10*3/uL (0.1-1.2); Monocytes Percent Auto 7.1 % (2-11); Neutrophils Absolute Auto 7.9 x10*3/uL (2.0-8.3); Neutrophils Percent Auto 60.8 % (45-73); Platelet Count 401 X10*3/uL (160-400); Red Blood Count 4.82 X10*6/uL (4.20-5.50); Red Cell Distribution Width 14.1 % (11.0-16.0); White Blood Count 13.1 X10*3/uL (4.8-10.8)
[2024-04-03 21:01] LABS: Alanine Aminotransferase 21 U/L (0-31); Albumin Level 4.1 g/dL (3.5-5.0); Alkaline Phosphatase 114 U/L (39-117); Anion Gap 13 (12-20); Aspartate Amino Transferase 43 U/L (5-31); Bilirubin Total 0.2 mg/dL (0.0-1.0); Blood Urea Nitrogen 14 mg/dL (9-16); Calcium 9.2 mg/dL (8.4-10.2); Carbon Dioxide 25 mmol/L (22-29); Chloride 106 mmol/L (96-108); Creatinine Clr Calc Pharmacy 75.1; Estimated Glomerular Filt Rate > 60; Glucose Random 128 mg/dL (60-115); Lipase 46 U/L (8-78); Potassium 3.4 mmol/L (3.3-5.1); Sodium 141 mmol/L (135-145); Total Protein 7.7 g/dL (6.5-8.0)
--- NOTE | 2024-04-03 21:52 | ED_ITS ---
HPI - URI/Sore Throat General Chief Complaint: Upper Respiratory Symptoms Stated Complaint: DIFF BREATHING, +RSV, PER EMS Time Seen by Provider: 04/03/24 21:49 Source: patient Mode of arrival: EMS Limitations: no limitations History of Present Illness ED Provider: HPI Narrative: Patient has recently diagnose the RSV with symptoms for last 4 days started on Z-Jere and prednisone was not taking the prednisone yet also does have history of chronic gastritis take Maalox as needed has not have any endoscopy in the past comes here for increased cough and shortness a breath took 50 mg of morphine for body pain which made the condition worse patient has received Solu-Medrol and DuoNeb treatment prior to arrival feeling much better at this time saturating 98% at room air patient does not have any inhaler at home Related Data Previous Rx's ?Medication ?Instructions ?Recorded acetaminophen 500 mg tablet 500 mg PO Q6H PRN fever or pain 02/17/24 (Tylenol Extra Strength) #14 tabs azithromycin 250 mg tablet See Rx Instructions PO .COMPLEX #6 04/02/24 tabs prednisone 20 mg tablet 20 mg PO QAM #5 tabs 04/02/24 albuterol sulfate 90 mcg/actuation 2 puff inhalation Q6H PRN 04/03/24 aerosol inhaler shortness of breath or wheezing #8.5 grams benzonatate 200 mg capsule 200 mg PO TID PRN cough #30 caps 04/03/24 omeprazole 40 mg capsule,delayed 40 mg PO DAILY #30 caps 04/03/24 release sucralfate 1 gram tablet 1 g PO TID #90 tabs 04/03/24 Allergies Allergy/AdvReac Type Severity Reaction Status Date / Time Augmentin Allergy Unknown Unknown Uncoded 04/03/24 20:00 Cyclobenzaprine HCl Allergy Unknown Unknown Uncoded 04/03/24 20:00 Oxycodone HCl Allergy Unknown Unknown Uncoded 04/03/24 20:00 Penicillin Allergy Unknown Unknown Uncoded 04/03/24 20:00 Review of Systems 2 Review of Systems: Yes all other systems are reviewed and are negative PMFSH Past Medical History Medical History Abnormal uterine bleeding (AUB) Hot flashes Anxiety Depression Fibromyalgia Arthritis H/O degenerative disc disease Surgical History History of hysterectomy Hx of cholecystectomy Hx of tubal ligation Hx of knee surgery History of back surgery Family History Family History Mother Cervical cancer Father Throat cancer Paternal Grandmother History of breast cancer Social History Social History Housing: Apartment Patient Tobacco Use Status: Current everyday Tobacco user Tobacco use type: Cigarette Cigarette Packs Per Day: 1 Cigarettes Per Day: 20 e-Cigarette/Vaping Use: Never Used Second Hand Smoke Exposure: No Advance Directives: No Advance Directives Information Provided: No Do you have a plan to hurt others: No Plan service: No Current occupational status: disabled Cognitive needs: No Hearing needs: No Vision needs: No Physical Exam 2 Vital Signs: Vital Signs: Last Vital Signs Temp 97.6 F 04/03/24 22:44 Pulse 85 04/03/24 22:44 Resp 18 04/03/24 22:44 BP 103/63 04/03/24 22:44 Pulse Ox 97 04/03/24 22:44 O2 Del Method Room Air 04/03/24 22:44 O2 Flow Rate 3 04/03/24 19:57 BMI result Body Mass Index 31.1 Appearance: Alert. Oriented X3. No acute distress. Eyes: PERRLA, No Nystagmus ENT: Pharynx normal. Oral Mucosa moist Neck: Normal inspection. Neck supple. CVS: Normal heart rate and rhythm. Pulses normal. Respiratory: No respiratory distress. Equal air entry bilateral, no wheezing/rales/rhonchi prolonged expiration Abdomen: Soft and nontender. Bowel sounds are present, no mass palpable, no CVA tenderness Skin: Skin warm and dry. Normal skin color. Normal skin turgor. Extremities: No lower extremity edema. No calf tenderness Neuro: Oriented X 3. No motor deficit. No sensory deficit.No cerebellar signs , cranial nerves II-XII intact Medications Administered Discontinued Medications Generic Name Dose Route Start Last Admin Trade Name Freq PRN Reason Stop Dose Admin Al Hydroxide/Mg Hydroxide 30 ml 04/03/24 22:12 04/03/24 22:34 Magnesium Hydrox/Alum Hydrox 30 Ml Oral.Susp PO 04/03/24 22:13 30 ml ONCE ONE Administration Lidocaine HCl 15 ml 04/03/24 22:12 04/03/24 22:34 Lidocaine Hcl Viscous 2 % 15 Ml Solution MUCOUS MEM 04/03/24 22:13 15 ml ONCE ONE Administration Omeprazole 40 mg 04/03/24 22:12 04/03/24 22:34 Omeprazole 40 Mg Capsule.Dr PARRA 04/03/24 22:13 40 mg ONCE ONE Administration Medical Decision Making Medical Decision Making [facility] Narrative: Patient's RSV bronchitis after receiving nebulizing treatment patient is feeling much better does have chronic gastritis not on any PPI will start on Prilosec 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 04/03/24 20:32 04/03/24 20:32 Labs: Lab Results 04/03/24 Range/Units 20:32 WBC 13.1 H (4.8-10.8) X10*3/uL RBC 4.82 (4.20-5.50) X10*6/uL Hgb 14.6 (12.0-16.0) g/dl Hct 42.8 (37.0-47.0) % MCV 88.8 (80.0-98.0) fL MCH 30.3 (27.0-33.0) pg MCHC 34.1 (31.0-35.0) g/dl RDW 14.1 (11.0-16.0) % Plt Count 401 H (160-400) X10*3/uL MPV 8.8 L (9.4-12.3) fL Immature Gran % (Auto) 0.8 H (0.0-0.4) % Neut % (Auto) 60.8 (45-73) % Lymph % (Auto) 25.4 (20-40) % [place] % (Auto) 7.1 (2-11) % Eos % (Auto) 5.2 H (0-4) % Baso % (Auto) 0.7 (0-2) % Lymph # (Auto) 3.3 (1.2-4.9) X10*3/uL [place] # (Auto) 0.9 (0.1-1.2) X10*3/uL Eos # (Auto) 0.7 H (0.0-0.4) X10*3/uL Baso # (Auto) 0.1 (0.0-0.2) X10*3/uL Abs Immat Gran (auto) 0.11 H (0.00-0.03) X10*3/uL Absolute Neuts (auto) 7.9 (2.0-8.3) x10*3/uL Absolute Nucleated RBC 0.000 (0.0-0.012) X10*3/uL Nucleated RBC % (auto) 0.0 (0.0-0.2) /100WBC Sodium 141 (135-145) mmol/L Potassium 3.4 (3.3-5.1) mmol/L Chloride 106 (96-108) mmol/L Carbon Dioxide 25 (22-29) mmol/L Anion Gap 13 (12-20) BUN 14 (9-16) mg/dL Creatinine 0.88 (0.5-1.4) mg/dL Estim Creat Clear Calc 75.1 Estimated GFR > 60 Random Glucose 128 H (60-115) mg/dL Calcium 9.2 (8.4-10.2) mg/dL Total Bilirubin 0.2 (0.0-1.0) mg/dL AST 43 H (5-31) U/L ALT 21 (0-31) U/L Alkaline Phosphatase 114 (39-117) U/L Total Protein 7.7 (6.5-8.0) g/dL Albumin 4.1 (3.5-5.0) g/dL Lipase 46 (8-78) U/L Independent Interpretation I performed an independent interpretation of an: Plain X-Ray Interpretation: Atypical infiltrate? RSV bronchitis Discharge Plan Discharge Clinical Impression: Acute bronchitis due to respiratory syncytial virus, Chronic GERD Patient Disposition: Home, Self-Care Instructions: Respiratory Syncytial Virus (ED), Gastroesophageal Reflux Disease (ED) Additional Instructions: Decrease intake of greasy and spicy food Start taking Prilosec daily Sucralfate as advised Prednisone as prescribed and use inhaler Follow with GI Prescriptions: New benzonatate 200 mg capsule 200 mg PO TID PRN (Reason: cough) Qty: 30 0RF omeprazole 40 mg capsule,delayed release(DR/EC) 40 mg PO DAILY Qty: 30 0RF sucralfate 1 gram tablet 1 g PO TID Qty: 90 0RF albuterol sulfate 90 mcg/actuation HFA aerosol inhaler 2 puff inhalation Q6H PRN (Reason: shortness of breath or wheezing) Qty: 8.5 0RF No Action acetaminophen [Tylenol Extra Strength] 500 mg tablet 500 mg PO Q6H PRN (Reason: fever or pain) Qty: 14 0RF prednisone 20 mg tablet 20 mg PO QAM Qty: 5 0RF azithromycin 250 mg tablet See Rx Instructions PO .COMPLEX Qty: 6 0RF Rx Instructions: For 250 mg dose pack: take 500 mg today (day 1), then 250 mg for 4 days (days 2-5) PO Referrals: Daly Perez MD [Physician] - 1 week Interventions: ED Discharge Assessment Last Done: 04/03/24 22:44 Discharge Date/Time: 04/03/24 22:47 Print Language: Indonesian
[2024-04-03 22:28] VITALS: BP 103/63; PULSE 85; RESP 18; TEMP 36.4; O2SAT 97
[2024-04-03] MEDS: Omeprazole 40 MG CAPSULE.DR PO (22:34)
[2024-04-03] MEDS: Magnesium Hydrox/Alum Hydrox 30 ML ORAL.SUSP PO (22:34)
[2024-04-03] MEDS: Lidocaine HCl Viscous 2 % 15 ML SOLUTION MUCOUS MEM (22:34)
[2024-04-03 22:44] VITALS: BP 103/63; PULSE 85; RESP 18; TEMP 36.4; O2SAT 97
== END 2024-04-03 22:47 | disposition home or self-care (01) ==
PROVIDERS: Emergency Provider Internal Medicine; PCP Nurse Practitioner Family
DX: J40 Bronchitis, not specified as acute or chronic (principal); B97.4 Respiratory syncytial virus as the cause of diseases classified elsewhere; K21.9 Gastro-esophageal reflux disease without esophagitis; R06.00 Dyspnea, unspecified; R06.02 Shortness of breath; R05.9 Cough, unspecified
CPT/HCPCS: 36415; 71045; 80053; 83690; 85025; 93005; 99283; 99284

== ENCOUNTER → 2024-04-03 20:24 | Outpatient (BNV) | payer OTHER, SELFPAY | PROVIDERS: Emergency Provider Internal Medicine; PCP Nurse Practitioner Family; Visit Provider Internal Medicine | DX: R94.31 Abnormal electrocardiogram [ECG] [EKG] (principal); R06.09 Other forms of dyspnea | CPT/HCPCS: 93010 ==

== ENCOUNTER 2024-04-09 08:05 | Outpatient (AMB) | payer OTHER, SELFPAY ==
--- NOTE | 2024-04-09 08:56 | AM.OFFWIN_ITS ---
Intake Vital Signs 04/09/24 09:01 Height 5 ft 2 in Weight 170 lb BMI 31.1 BP 130/80 Blood Pressure Location Lt brachial Position Sitting Pulse 88 Pulse Source Pulse Oximeter Temp 98.0 F Temp Source Oral Pulse Oximetry (%) 97 Oxygen Delivery Method Room Air Intake Visit Reasons: EP-medicine allergy reaction Intake Note: Allergic reaction to augmentin. Patient Tobacco Use Status: Current everyday Tobacco user Allergies Augmentin Allergy (Unknown, Uncoded 04/03/24 20:00) Unknown Cyclobenzaprine HCl Allergy (Unknown, Uncoded 04/03/24 20:00) Unknown Oxycodone HCl Allergy (Unknown, Uncoded 04/03/24 20:00) Unknown Penicillin Allergy (Unknown, Uncoded 04/03/24 20:00) Unknown Medication List - Last Reconciled 04/09/24 by Carline Grissom NP acetaminophen (Tylenol Extra Strength) 500 mg PO Q6H PRN albuterol sulfate 90 mcg/actuation 2 puffs inhalation Q6H PRN benzonatate 200 mg PO TID PRN omeprazole 40 mg PO DAILY prednisone 20 mg PO QAM sucralfate 1 g PO TID HPI EP-medicine allergy reaction HPI Details This note is constructed using voice recognition software. While every effort has been made to ensure accuracy, drill sharpener operator errors may have been included. The patient is a 48 year old female who presents to the clinic today with ongoing cough and medication allergy reactions. Patient was last seen in the clinic 04/02/2024, treated with azithromycin and prednisone for upper respiratory symptoms, ultimately positive for RSV. On 04/03/2024 noticed that her breathing felt worse, she had some chest pain, and she was concerned in this worsening status so she was evaluated in the emergency room. She had chest x- rays in both locations, indicating that she had likely a pneumonia. Augmentin was added to her treatment plan, however she did not realize that this was what she was allergic to. She took this for 3 days, and then developed itch around her eyes. She stopped taking the medication immediately. She continues to have cough, congestion, though it is slightly improve. She denies dyspnea. [facility] Medical History Abnormal uterine bleeding (AUB) Hot flashes Anxiety Depression Fibromyalgia Arthritis H/O degenerative disc disease Surgical History History of hysterectomy Hx of cholecystectomy Hx of tubal ligation Hx of knee surgery History of back surgery Family History Mother Cervical cancer Father Throat cancer Paternal Grandmother History of breast cancer Social History Housing: Apartment Patient Tobacco Use Status: Current everyday Tobacco user Tobacco use type: Cigarette Cigarette Packs Per Day: 1 Cigarettes Per Day: 20 e-Cigarette/Vaping Use: Never Used Second Hand Smoke Exposure: No service: No Current occupational status: disabled Cognitive needs: No Hearing needs: No Vision needs: No Female Reproductive History Menstrual Age of Menarche: 14 Review of Systems Const All systems reviewed & are unremarkable except as noted in HPI and below Physical Exam Vital Signs: Last Vital Signs Temp 98.0 F 04/09/24 09:01 Pulse 88 04/09/24 09:01 BP 130/80 04/09/24 09:01 Pulse Ox 97 04/09/24 09:01 Oxygen Delivery Method Room Air 04/09/24 09:01 BMI result Body Mass Index 31.1 Const General: cooperative, healthy appearing, comfortable and no acute distress Orientation/consciousness: patient oriented x3 Limitations: no limitations HEENT Head: Yes normal to inspection Ears: hearing grossly normal bilaterally, external ears normal and TM's normal bilaterally General nose exam: Normal external nose present, Normal nares present and No nasal discharge present Face and sinus: Yes normal facial exam and Yes sinuses nontender Mouth: Normal oral and palatal mucosa present and moist mucous membranes Throat: Yes tonsils normal, Yes uvula midline and Yes posterior oropharynx abnormal (Erythema) Eyes General: appearance normal, both eyes and all related structures Neck Neck: Yes normal visual inspection Resp Other: Rhonchi present left lower lobe, otherwise clear. Effort & Inspection: normal respiratory effort, able to speak in complete sentences, Actively coughing, no respiratory distress, not tachypneic, no tripod positioning and no use of accessory muscles Cardio Jugular venous distension: no JVD Rate: regular rate Rhythm: regular rhythm Heart sounds: S1 normal heart sound present, S2 normal heart sound present, no click, no gallops, no murmurs and no rubs Skin Other: Dry skin periorbital bilaterally. General skin exam: no rashes or lesions noted, elasticity normal and turgor normal Neuro General: patient oriented x3 Extrem General: Yes normal to inspection and Yes no clubbing, cyanosis or edema Assessment & Plan Assessment & Plan (1) Pneumonia: Code(s): J18.9 - Pneumonia, unspecified organism Qualifiers: Pneumonia type: due to unspecified organism Laterality: left Lung location: lower lobe of lung Qualified Code(s): J18.9 - Pneumonia, unspecified organism Plan: Advised patient to notify her pharmacy if her allergy to Augmentin. Due to allergy profile, prescribed levofloxacin treatment of her pneumonia. Symptomatic management reviewed with patient. Offered Repeat prednisone, however she declined this at this time. Advised patient follow up with PCP as needed with failure to resolve. Advised Repeat re-evaluation with worsening symptoms Plan See above for full details and plan. Medications: New levofloxacin 750 mg PO DAILY 5 days 5 tabs 0RF Discontinued azithromycin Discontinued Reason: None For 250 mg dose pack: take 500 mg today (day 1), then 250 mg for 4 days (days 2-5) PO 6 tabs 0RF amoxicillin-pot clavulanate 875-125 mg Discontinued Reason: Doctor's Order 1 tab PO Q12H 14 tabs 0RF Coding Level of Care Code Est Pt Level 3 (97875) Diagnoses Pneumonia of left lower lobe due to infectious organism J18.9 Pneumonia type: due to unspecified organism Laterality: left Lung location: lower lobe of lung
[2024-04-09 09:01] VITALS: BP 130/80; PULSE 88; TEMP 36.7; O2SAT 97; BMI 31.1
== END 2024-04-09 10:31 | disposition home or self-care (01) ==
PROVIDERS: PCP Nurse Practitioner Family; Visit Provider Registered Nurse
DX: J18.9 Pneumonia, unspecified organism (principal)

== ENCOUNTER → 2024-04-09 08:05 | Outpatient (BNVA) | payer OTHER, SELFPAY | PROVIDERS: PCP Nurse Practitioner Family; Visit Provider Registered Nurse | DX: J18.9 Pneumonia, unspecified organism (principal) | CPT/HCPCS: 99212 ==

== ENCOUNTER → 2024-05-20 14:02 | Outpatient (BNVA) | payer OTHER, SELFPAY | PROVIDERS: PCP Nurse Practitioner Family; Visit Provider Nurse Practitioner Family | DX: Z00.00 Encounter for general adult medical examination without abnormal findings (principal); M94.0 Chondrocostal junction syndrome [Tietze] | CPT/HCPCS: 96127; 99396 ==

== ENCOUNTER 2024-06-25 13:11 | Outpatient (REF) | payer OTHER, SELFPAY ==
--- NOTE | ~2024-06-25 | MM_ITS ---
EXAMINATION: MM DIAGNOSTIC DIGITAL BREAST TOMOSYNTHESIS, BILATERAL CLINICAL INFORMATION: 1 year follow-up for calcifications in the upper outer left breast. COMPARISON: Mammography: Comparison is made with relevant prior exams. TECHNIQUE: Digital breast mammography with tomosynthesis is performed in both the craniocaudal and mediolateral oblique views along with computer-aided detection (CAD). FINDINGS: There are scattered areas of fibroglandular density (ACR BI-RADS breast composition Category b). Punctate faint calcifications in the upper outer left breast anterior depth are not significantly changed from prior magnification views dating back for one year. No suspicious masses or other abnormal findings. Results are provided to the patient at time of visit by the technologist. MM/MM tomosynthesis diagnostic BI IMPRESSION: Right: Negative. Left: Targeted calcifications in the upper outer left breast anterior depth are not significantly changed on magnification views dating back for one year. Recommend one-year follow-up to demonstrate 2 years of stability when the patient is due for bilateral mammography. ASSESSMENT: BI-RADS BI-RADS 3 - Probably benign finding(s) - 12 month follow-up suggested RECOMMENDATION: 12 month diagnostic follow up This patient's information was entered into a reminder system with a target due date for their next mammogram. Electronically signed by: Catia Harding DO 06/25/2024 02:03 PM EDT
--- OUTSIDE RECORDS SUMMARY | 2024-06-25 16:42 | XMS_ITS | Clinical Summary ---
Author Organization [facility] Address [address] [place] [address] Care Team Providers Care Rf Test Engineer Name Role Phone Sammy Del Rio Primary Care Provider [phone] Allergies Active Allergy Reactions Criticality Noted Date Comments Amoxicillin Swelling High 09/23/2023 Oxycodone-Acetaminophen Nausea And Vomiting,Vomiting 05/20/2017 Medications [id number]-[id number]-[id number] on-FA-vit K-lut (Centrum Minis Women 50 Plus) 4 mg iron-200 mcg-25 mcg tablet Take 1 capsule by mouth daily. Active acetaminophen (TYLENOL) 325 mg tablet Take 2 tablets (650 mg total) by mouth every 6 hours as needed for pain. 30 tablet 12/02/2023 3:15 PM EDT 4 Active ondansetron (ZOFRAN) 4 mg tablet Take 1 tablet (4 mg total) by mouth every 8 hours as needed for nausea or vomiting. 10 tablet 12/02/2023 4:41 PM EDT 4 Active senna (SENOKOT) 8.6 mg tablet Take 1 tablet (8.6 mg total) by mouth once a day. 30 tablet 2 4 Active Additional Information Patient not taking.Reported on 12/25/2023 polyethylene glycol 3350 (MIRALAX) powder DISSOLVE 17 GRAMS IN 8 OZ OF FLUID LIQUID DRINK DAILY DIRECTED 238 g 4 Active Additional Information Patient not taking.Reported on 12/25/2023 Active Problems Problem Noted Date Diagnosed Date Abnormal uterine bleeding (AUB) 11/26/2023 Hx of degenerative disc disease 11/26/2023 Depression 11/26/2023 Anxiety 11/26/2023 Encounters Date Type Department Care Team Description 04/03/2024 Refill [facility] [address] [place] [address] Locker Attendant: Jennifer Salazar PA from Last 3 Months Family History Medical History Relation Name Comments No Known Problems Daughter Arthritis Father Low contact Throat cancer Father Low contact No Known Problems Grandchild Arthritis Mother Cervical cancer Mother Fibromyalgia Mother Other cancer Mother Vulva Seizures Mother Breast cancer Paternal Grandmother No Known Problems Son Colon cancer Neg Hx Diabetes Neg Hx Hypertension Neg Hx Ovarian cancer Neg Hx Uterine cancer Neg Hx Relation Name Status Comments Daughter Alive Father Low contact Grandchild Alive Mother Alive Paternal Grandmother Son Alive Social History Tobacco Use Types Packs/Day Years Used Date Smoking Tobacco: Every Day Cigarettes 0.8 25 Passive Smoke Exposure: Past Smokeless Tobacco: Never Tobacco Cessation:Ready to Q uit: Not Asked; Counseling Given: Not Answered Comments:1/2-1 PPD for about 25 yrs Alcohol Use Standard Drinks/Week Comments Yes 0 (1 standard drink = 0.6 oz pur e alcohol) Occasional Comments No Sex and Gender Information Value Date Recorded Sex Assigned at Female 09/23/2023 3:39 PM EDT Legal Sex Female 9:06 AM EST Gender Identity Female 10/07/2023 12:35 PM EDT Sexual Orientation Straight 10/07/2023 12 :35 PM EDT Last Filed Vital Signs Vital Sign Reading Time Taken Comments Blood Pressure 92/64 01/07/2024 12:46 PM EDT Pulse 78 12/02/2023 4:35 PM EDT Temperature 36.3 ??C (97.3 ??F) 12/02/2023 4:35 PM ED T Respiratory Rate 18 12/02/2023 4:35 PM EDT Oxygen Saturation 100% 12/02/2023 4:35 PM EDT Inhaled Oxygen Concentration - - Weight 77.1 kg (170 lb) 01/07/2024 12:46 PM EDT Height 157.5 cm (5' 2 ) 01/07/2024 12:46 PM EDT Body Mass Index 31.09 01/07/2024 12:46 PM EDT Plan of Treatment Health Maintenance Due Date Last Done Comments Cologuard 1975 Colon Cancer Screening 1975 Colonoscopy 1975 FOBT / Fit Test 1975 HIV Screening 1975 Hepatitis C Screening 1975 Sigmoidoscopy 1975 Hepatitis B Vaccines (1 of 3 - 19+ 3-dose series) 04/1994 DTaP,Tdap,and Td Vaccines (1 - Tdap) 11/13/1997 Pneumococcal Vaccine: Pediat kayleigh (0-5 Years) and At-Risk Patients (6-50 Years) (2 of 2 - PCV) 06/25/2015 06/24/2014 Mammogram 2015 COVID-19 Vaccine (1 - 2023-25 season) 2023 Influenza Vaccine (#1) 2023 06/12/2013 Alcohol/Substance Use Screening 04/15/2024 Depression Evaluation 04/15/2024 Social Drivers of Health Annual Screening 04/15/2024 RSV Vaccine (60+ years old a nd patients) (1 - 1-dose 75+ series) 11/13/2050 Insurance [facility] [place] [id number] Advance Directives * Presumed Full Code (Latest Code Status on File) Date Activated Date Inactivated Comments 12/02/2023 10:14 AM 12/02/2023 7:10 PM Care Teams Rf Test Engineer Relationship Specialty Start Date End Date Sammy Del Rio [address] [place] [address] PCP - General 06/07/23
--- OUTSIDE RECORDS SUMMARY | 2024-06-25 16:42 | XMS_ITS ---
Author Name [facility] Organization Unknown Encounters Encounter Type Encounter Reason Primary Diagnosis Location Date Emergency BACK PAIN Myalgia, other site [facility] 02/02/2024 Care Team Organization Name Specialty Phone Email Start Date End Da te [facility] 1
--- OUTSIDE RECORDS SUMMARY | 2024-06-25 16:42 | XMS_ITS | Referral Summary ---
Author Organization [facility] Address [address] [place] [address] Care Team Providers Care Chemicals Fermentation Operator Name Role Phone Sammy Del Rio Primary Care Provider [phone] Encounters Date Type Department Care Team Description 04/03/2024 Refill [facility] [address], [place] [id number] Care Partner: Jennifer Salazar PA from Last 3 Months Allergies Active Allergy Reactions Criticality Noted Date Comments Amoxicillin Swelling High 09/23/2023 Oxycodone-Acetaminophen Nausea And Vomiting,Vomiting 05/20/2017 Medications nsszgntw-ifl-[id number] on-FA-vit K-lut (Centrum Minis Women 50 Plus) [...] disc disease 11/26/2023 Depression 11/26/2023 Anxiety 11/26/2023 Social History Tobacco Use Types Packs/Day Years [...] 01/07/2024 12:46 PM EDT Plan of Treatment Not on file Insurance [facility] Advance Directives * Presumed Full Code (Latest Code Status on File) Date Activated Date Inactivated Comments 12/02/2023 10:14 AM 12/02/2023 7:10 PM Care Teams Chemicals Fermentation Operator Relationship Specialty Start Date End Date Sammy Del Rio [address] [place] [address] PCP - General 06/07/23
== END 2024-06-25 13:12 | disposition home or self-care (01) ==
LOC: HO.MAMMO 13:11
PROVIDERS: PCP Nurse Practitioner Family; Visit Provider Nurse Practitioner Family
DX: R92.1 Mammographic calcification found on diagnostic imaging of breast (principal)
CPT/HCPCS: 77062; 77066

== ENCOUNTER → 2024-06-25 13:30 | Outpatient (BNV) | payer OTHER, SELFPAY | PROVIDERS: PCP Nurse Practitioner Family; Visit Provider Internal Medicine | DX: R92.1 Mammographic calcification found on diagnostic imaging of breast (principal) | CPT/HCPCS: 77066; G0279 ==

== ENCOUNTER 2024-08-27 15:32 | Outpatient (AMB) | payer OTHER, SELFPAY ==
[2024-08-27 15:35] VITALS: BP 118/76; PULSE 80; O2SAT 98; BMI 32.2
--- NOTE | 2024-08-27 15:35 | MHC.PC.OV ---
Vital Signs 08/27/24 15:35 Height 5 ft 2 in Weight 176 lb BMI 32.2 BP 118/76 Blood Pressure Location Rt brachial Position Sitting Pulse 80 Pulse Source Pulse Oximeter Pulse Oximetry (%) 98 Oxygen Delivery Method Room Air Intake Visit Reasons: 3 months f/up Densitometer Reader Required: No Accompanied by: Self / Same As Patient Allergies Augmentin Allergy (Unknown, Uncoded 08/27/24 15:57) Unknown Cyclobenzaprine HCl Allergy (Unknown, Uncoded 08/27/24 15:57) Unknown Oxycodone HCl Allergy (Unknown, Uncoded 08/27/24 15:57) Unknown Penicillin Allergy (Unknown, Uncoded 08/27/24 15:57) Unknown Medication List - Last Reconciled 08/27/24 by DINH Lucio lorazepam mg PO Tobacco use date assessed: 05/20/24 Dental Screening Dental Screen Date: 05/20/24 HPI 3 months f/up HPI Details Chief Complaint Persistent chest discomfort worsened by smoking, with anxiety under treatment. History of Present Illness The patient is a 48-year-old female presenting with concerns primarily related to chest discomfort. She describes this as sharp and occasionally dull in nature, localized at the sternal area, episodic with rapid onset and resolution, and not associated with respiratory effort or radiation. Notably, her smoking history presents considerations for bronchial irritation. Previous evaluations in an emergency setting have excluded cardiac origins for these symptoms. The patient's anxiety disorder has been managed under psychiatric supervision, with lorazepam providing relief and control over anxiety exacerbations. The current treatment regimen is PRN dosage, effectively managing symptoms. There are no indications of suicidal or homicidal ideation. Gastroenterological evaluation and possible endoscopy have been suggested for further investigation of presumed gastroesophageal reflux disease due to persistent chest discomfort possibly linked to non-cardiac factors. Social History - The patient is a heavy smoker. - Employment status and additional social factors were not discussed. Health Maintenance - Recommending a chest X-ray due to smoking history. - Suggest endoscopy for gastroenterological complaints. Review of Systems - Cardiac: Denies exertional chest pain, radiating pain. - Pulmonary: Reports chest discomfort; denies respiratory-triggered pain. - Psychiatric: Reports improved anxiety; denies suicidal or homicidal ideation. Physical Exam General: Cooperative, healthy appearing, comfortable, no acute distress and well developed Orientation: Patient oriented x3 Limitations: No limitations Head: Normal to inspection Ears: Hearing grossly normal bilaterally Nose: Normal external nose present Face and sinus: Normal facial exam Eyes: Appearance normal, both eyes and all related structures Neck: Normal visual inspection and Yes full ROM Respiratory: Normal respiratory effort and able to speak in complete sentences. Clear to auscultation bilaterally Cardiovascular: Regular rate and rhythm. Normal S1 and S2 GI: Normal to inspection. Soft to palpation and nontender Skin: No rashes or lesions noted Neuro: Patient oriented x3 Extremities: Normal to inspection Results - Prior ER evaluation for chest pain negative for cardiac pathology. Plan To address the chest pain, a chest X-ray is planned to rule out bronchial irritation due to smoking. The patient's anxiety remains well-managed under psychiatric care with lorazepam. Coordination with gastroenterology is encouraged, including possible endoscopic evaluation, to investigate possible gastroesophageal reflux disease. Further cardiac evaluation via EKG today is advised for reassurance due to repeated symptoms and to exclude any new pathological findings. Discussion Notes During the consultation, I discussed with the patient the need for a chest X-ray due to her persistent smoking habit, which may contribute to bronchial concerns. We discussed her consistent lorazepam use in anxiety management, noting the improvement in her symptomatology. Future gastroenterological evaluation has been suggested, including an endoscopy to investigate possible underlying gastroesophageal conditions affecting her wellbeing. The patient was informed of obtaining an EKG to ensure no current cardiac involvement despite previous clear results. The necessity of follow-ups and maintaining compliance with psychiatric care was emphasized. Patient Instructions - Schedule and undergo a chest X-ray. - Follow up with your respiratory therapy technician and consider an endoscopy. - Continue taking lorazepam as prescribed for anxiety. - Adhere to all prescribed psychiatric treatments. - Schedule an EKG as soon as possible. - Quit smoking or seek resources for smoking cessation. - Come back if chest pain worsens or new symptoms develop. [facility] Medical History Abnormal uterine bleeding (AUB) Hot flashes Anxiety Depression Fibromyalgia Arthritis H/O degenerative disc disease Surgical History History of hysterectomy Hx of cholecystectomy Hx of tubal ligation Hx of knee surgery History of back surgery Family History Mother Cervical cancer Father Throat cancer Paternal Grandmother History of breast cancer Social History Housing: Apartment Patient Tobacco Use Status: Current everyday Tobacco user Tobacco use type: Cigarette Cigarette Packs Per Day: 1 Cigarettes Per Day: 20 e-Cigarette/Vaping Use: Never Used Second Hand Smoke Exposure: No service: No Current occupational status: disabled Cognitive needs: No Hearing needs: No Vision needs: No Female Reproductive History Menstrual Age of Menarche: 14 Questionnaire Thrive Questionnaire Date Thrive assessed: 08/27/24 I am a: Patient What is your living situation today?: I have a steady place to live Within the past 12 months, did the food you bought not last and you didn't have the money to get more?: Sometimes True Within the past 12 months, did you worry whether your food would run out before you got money to buy more?: Sometimes True Do you have trouble paying for medicines?: No Do you have trouble getting transportation to medical appointments?: No Do you have trouble paying your heating and electricity bill?: No Do you have trouble taking care of your child, family member or friend?: No Do you have trouble with day-to-day activities such as bathing, preparing meals, shopping, managing finances, etc.?: Yes Are you currently unemployed and looking for a job?: No Are you interested in more education?: No Please select the resources that you would like help with: None Currently or been in a relationship where the following occur: I choose not to answer THRIVE Score: 2 SHAKIRA-7 AMB Questionnaire SHAKIRA-7 Date SHAKIRA - 7 assessed: 05/20/24 Source: Developed by Drs. Kirk Clark, Carline Sam, Fer Cárdenas and colleagues, with an educational jace from [employer]. Physical exam (Primary Care) Vital Signs: Last Vital Signs Pulse 80 08/27/24 15:35 BP 118/76 08/27/24 15:35 Pulse Ox 98 08/27/24 15:35 Oxygen Delivery Method Room Air 08/27/24 15:35 BMI result Body Mass Index 32.2 Tobacco/Smoking Status: Tobacco use Status Tobacco use date assessed 05/20/24 08/27/24 15:36 Patient Tobacco Use Status Current everyday Tobacco 08/27/24 15:36 Tobacco use type Cigarette 08/27/24 15:36 e-Cigarette/Vaping Use Never Used 08/27/24 15:36 Thrive Assessment: Date of Thrive Assessment Date Thrive assessed 08/27/24 08/27/24 15:36 Currently or been in a relationship where the following occur: I choose not to answer Coding Level of Care Code Est Pt Level 4 (61688) Diagnoses Depression F32.9 Anxiety F41.9 Chest discomfort R07.89 Assessment & Plan Assessment & Plan (1) Depression: Code(s): F32.9 - Major depressive disorder, single episode, unspecified Category: Medical (2) Anxiety: Code(s): F41.9 - Anxiety disorder, unspecified Category: Medical (3) Chest discomfort: Code(s): R07.89 - Other chest pain Category: Medical Plan . Orders: Orders Complete Blood Count Auto Diff Today F32.9 - Major depressive disorder, single episode, unspecified, F41.9 - Anxiety disorder, unspecified Comprehensive Met. Panel Today F32.9 - Major depressive disorder, single episode, unspecified, F41.9 - Anxiety disorder, unspecified XR chest 2V Today R07.89 - Other chest pain AMB EKG-In Office Today R07.89 - Other chest pain
--- OUTSIDE RECORDS SUMMARY | 2024-08-27 15:57 | XMS_ITS | Referral Summary ---
Author Organization [facility] Address [address] [place] [address] Care Team Providers Care Tobacco Scrap Sifter Name Role Phone Sammy Del Rio Primary Care Provider [phone] Allergies Active Allergy Reactions Criticality Noted Date Comments Amoxicillin Swelling High 09/23/2023 Oxycodone-Acetaminophen Nausea And Vomiting,Vomiting 05/20/2017 Medications cxkedmmy-xtt-jn on-FA-vit K-lut (Centrum Minis Women 50 Plus) [...] Plan of Treatment Not on file Insurance [facility] [employer] Advance Directives * Presumed Full Code (Latest Code Status on File) Date Activated Date Inactivated Comments 12/02/2023 10:14 AM 12/02/2023 7:10 PM Care Teams Tobacco Scrap Sifter Relationship Specialty Start Date End Date Sammy Del Rio [address] [place] [address] PCP - General 06/07/23
--- OUTSIDE RECORDS SUMMARY | 2024-08-27 15:57 | XMS_ITS | Clinical Summary ---
Author Organization [facility] Address [address] [place] [address] Care Team Providers Care Drainage Design Coordinator Name Role Phone Sammy Del Rio Primary Care Provider Allergies Active Allergy Reactions Criticality Noted Date Comments Amoxicillin Swelling High 09/23/2023 Oxycodone-Acetaminophen Nausea And Vomiting,Vomiting 05/20/2017 Medications xuilvhnr-ovt-du on-FA-vit K-lut (Centrum Minis Women 50 Plus) [...] disc disease 11/26/2023 Depression 11/26/2023 Anxiety 11/26/2023 Family History Medical History Relation Name Comments [...] uit: Not Asked; Counseling Given: Not Answered Comments:04/16- PPD for about 25 yrs Alcohol Use [...] 06/24/2014 Mammogram 2015 COVID-19 Vaccine (1 - 2023- season) 2023 Alcohol/Substance Use Screening 04/15/2024 Depression Screening and Follow-Up 04/15/2024 Social Drivers of Health Annual Screening 04/15/2024 Influenza Vaccine (Season Ended) 2024 06/12/19 14 RSV Vaccine (60+ years old a nd patients) (1 - 1-dose 75+ series) 11/13/2050 Insurance [facility] [place] [place] [id number] Advance Directives * Presumed Full Code (Latest Code Status on File) Date Activated Date Inactivated Comments 12/02/2023 10:14 AM 12/02/2023 7:10 PM Care Teams Drainage Design Coordinator Relationship Specialty Start Date End Date Sammy Del Rio [address] [place] [id number] PCP - General 06/07/23
== END 2024-08-27 16:33 | disposition home or self-care (01) ==
LOC: HO.HMCC 15:33
PROVIDERS: PCP Nurse Practitioner Family; Visit Provider Nurse Practitioner Family
DX: F32.9 Major depressive disorder, single episode, unspecified (principal); F41.9 Anxiety disorder, unspecified; R07.89 Other chest pain

== ENCOUNTER → 2024-08-27 15:32 | Outpatient (BNVA) | payer OTHER, SELFPAY | PROVIDERS: PCP Nurse Practitioner Family; Visit Provider Nurse Practitioner Family | DX: M79.7 Fibromyalgia (principal); F32.9 Major depressive disorder, single episode, unspecified; F17.210 Nicotine dependence, cigarettes, uncomplicated; F41.9 Anxiety disorder, unspecified; R07.89 Other chest pain | CPT/HCPCS: 99212 ==

== ENCOUNTER 2024-08-31 11:11 | Outpatient (REF) | payer OTHER, SELFPAY ==
--- NOTE | ~2024-08-31 | XR_ITS ---
EXAMINATION: XR CHEST 2 VIEWS HISTORY: R07.89 - Other chest pain COMPARISON: Comparison is made with the prior examination dated 04/03/2024. FINDINGS: PA and lateral views of the chest are submitted. The lungs are expanded and clear. There is no pleural effusion, pneumothorax, or pulmonary vascular congestion. The heart is normal in size. The bones are intact. XR/XR chest 2V IMPRESSION: No acute cardiopulmonary abnormality. Electronically signed by: Kirk Cruz MD 08/31/2024 11:54 AM EDT
--- OUTSIDE RECORDS SUMMARY | 2024-08-31 11:54 | XMS_ITS | Referral Summary ---
Author Organization [facility] Address [address] [place] [address] Care Team Providers Care Operations Lead Name Role Phone Sammy Del Rio Primary Care Provider Allergies Active Allergy Reactions Criticality Noted Date Comments Amoxicillin Swelling High 09/23/2023 Oxycodone-Acetaminophen Nausea And Vomiting,Vomiting 05/20/2017 Medications vbrjwffh-lxy-sy on-FA-vit K-lut (Centrum Minis Women 50 Plus) [...] Plan of Treatment Not on file Insurance [facility] [employer] Advance Directives * Presumed Full Code (Latest Code Status on File) Date Activated Date Inactivated Comments 12/02/2023 10:14 AM 12/02/2023 7:10 PM Care Teams Operations Lead Relationship Specialty Start Date End Date Sammy Del Rio [address] [place] [address] PCP - General 06/07/23
--- OUTSIDE RECORDS SUMMARY | 2024-08-31 11:54 | XMS_ITS | Clinical Summary ---
Author Organization [facility] Address [address] [place] [address] Care Team Providers Care Security Rep Name Role Phone Sammy Del Rio Primary Care Provider Allergies Active Allergy Reactions Criticality Noted Date Comments Amoxicillin Swelling High 09/23/2023 Oxycodone-Acetaminophen Nausea And Vomiting,Vomiting 05/20/2017 Medications ntgylrbo-hvs-sg on-FA-vit K-lut (Centrum Minis Women 50 Plus) [...] (1 - 1-dose 75+ series) 11/13/2050 Insurance [facility] [employer] [place] [id number] Advance Directives * Presumed Full Code (Latest Code Status on File) Date Activated Date Inactivated Comments 12/02/2023 10:14 AM 12/02/2023 7:10 PM Care Teams Security Rep Relationship Specialty Start Date End Date Sammy Del Rio [address] [place] [id number] PCP - General 06/07/23
[2024-08-31 13:03] LABS: MANUAL DIFF FLAG NO
[2024-08-31 13:21] LABS: Basophils Absolute Auto 0.1 X10*3/uL (0.0-0.2); Basophils Percent Auto 0.6 % (0-2); Eosinophils Absolute Auto 0.2 X10*3/uL (0.0-0.4); Eosinophils Percent Auto 2.2 % (0-4); Hematocrit 41.4 % (37.0-47.0); Hemoglobin 14.2 g/dl (12.0-16.0); Imm Gran Abs Auto 0.05 X10*3/uL (0.00-0.03); Imm Gran Pct Auto 0.5 % (0.0-0.4); Lymphocytes Percent Auto 28.5 % (20-40); Mean Corpuscular HGB Conc 34.3 g/dl (31.0-35.0); Mean Corpuscular Hemoglobin 31.3 pg (27.0-33.0); Mean Corpuscular Volume 91.2 fL (80.0-98.0); Mean Platelet Volume 10.5 fL (9.4-12.3); Monocytes Absolute Auto 0.6 X10*3/uL (0.1-1.2); Monocytes Percent Auto 5.6 % (2-11); Neutrophils Absolute Auto 6.6 x10*3/uL (2.0-8.3); Neutrophils Percent Auto 62.6 % (45-73); Platelet Count 333 X10*3/uL (160-400); Red Blood Count 4.54 X10*6/uL (4.20-5.50); Red Cell Distribution Width 14.9 % (11.0-16.0); White Blood Count 10.5 X10*3/uL (4.8-10.8)
[2024-08-31 13:33] LABS: Alanine Aminotransferase 10 U/L (0-31); Albumin Level 3.9 g/dL (3.5-5.0); Alkaline Phosphatase 74 U/L (39-117); Anion Gap 10 (12-20); Aspartate Amino Transferase 19 U/L (5-31); Bilirubin Total 0.2 mg/dL (0.0-1.0); Blood Urea Nitrogen 10 mg/dL (9-16); Calcium 8.8 mg/dL (8.4-10.2); Carbon Dioxide 25 mmol/L (22-29); Chloride 105 mmol/L (96-108); Estimated Glomerular Filt Rate > 60; Glucose Random 91 mg/dL (60-115); Potassium 4.2 mmol/L (3.3-5.1); Sodium 136 mmol/L (135-145); Total Protein 6.8 g/dL (6.5-8.0)
== END 2024-08-31 11:12 | disposition home or self-care (01) ==
LOC: HO.HMGCX 11:11
PROVIDERS: PCP Nurse Practitioner Family; Visit Provider Nurse Practitioner Family
DX: F41.9 Anxiety disorder, unspecified (principal); F32.9 Major depressive disorder, single episode, unspecified; R07.89 Other chest pain
CPT/HCPCS: 36415; 71046; 80053; 85025

== ENCOUNTER → 2024-08-31 11:24 | Outpatient (BNV) | payer OTHER, SELFPAY | PROVIDERS: PCP Nurse Practitioner Family; Visit Provider Radiology Diagnostic Radiology | DX: R07.9 Chest pain, unspecified (principal) | CPT/HCPCS: 71046 ==

== ENCOUNTER 2024-12-10 10:23 | Outpatient (AMB) | payer OTHER, SELFPAY ==
--- NOTE | 2024-12-10 10:34 | A.OFFVIS_ITS ---
Vital Signs 12/10/24 10:44 Height 5 ft 2 in Weight 170 lb BMI 31.1 BP 102/69 Blood Pressure Location Lt brachial Position Sitting Pulse 84 Pulse Oximetry (%) 98 Oxygen Delivery Method Room Air Intake Visit Reasons: Colonoscopy Screening Intake Note: Patient new consult for 1st pre Colonoscopy/EGD screening. Patient cc: Chronic abdominal pain with bloating, gassy and poor appetite. Denies any other GI issues. Carbon Paper Coating Machine Setter Required: No Accompanied by: Spouse Allergies Augmentin Allergy (Unknown, Uncoded 08/27/24 15:57) Unknown Cyclobenzaprine HCl Allergy (Unknown, Uncoded 08/27/24 15:57) Unknown Oxycodone HCl Allergy (Unknown, Uncoded 08/27/24 15:57) Unknown Penicillin Allergy (Unknown, Uncoded 08/27/24 15:57) Unknown Medication List - Last Reconciled 12/10/24 by Delmy Blair CNP lorazepam 0.5 mg PO DAILY PRN HPI HPI Colonoscopy Screening: Details: Patient is a 49-year-old female with PMH of anxiety, depression, fibromyalgia, arthritis. Referred by PCP for pre colonoscopy screening Patient is accompanied by her . The patient presents with epigastric pain localized under the chest and sternum, describing the episodes as severe and prolonged, occurring sporadically over the past 5+ years. Symptoms initially began shortly after a cholecystectomy (date unspecified) and have worsened in duration and intensity, often requiring emergency room visits. Aggravating factors include the ingestion of medications such as ibuprofen and certain foods. The pain does not follow an activity-rest pattern and is associated with inability to breathe deeply during acute episodes. OTC relief measures such as milk and antacids have worked in the past but lost efficacy 1?2 years ago. Associated symptoms include excessive belching lasting up to an hour and no nausea, vomiting, diarrhea, constipation, hematochezia, dysphagia, acid reflux, or regurgitation. The patient denies any history of unexplained weight loss but notes weight changes linked to inactivity during recovery from knee surgeries. Appetite has remained stable, not impacted directly by food intake. Pertinent negative findings include no burning sensations or traditional signs of GERD. She believes symptoms may be linked to long-term NSAID use and expresses concerns for possible damage or ulceration. Comorbidities include chronic pain secondary to fibromyalgia, degenerative disc disease, and history of back fusion surgery. Social hx: -Occasional alcohol consumption -smoke marijuana daily, denies other recreational drug use -current 1ppd smoker - family hx as below -denies personal hx of CA -denies significant cardiopulmonary history -tolerated anesthesia in the past without difficulty. [facility] Medical History (Updated 12/10/24 @ 11:02 by Delmy Blair CNP) Epigastric abdominal pain Patellofemoral chondrosis of right knee Patellofemoral chondrosis of left knee Abnormal uterine bleeding (AUB) Hot flashes Anxiety Depression Fibromyalgia Arthritis H/O degenerative disc disease Surgical History History of hysterectomy Hx of cholecystectomy Hx of tubal ligation Hx of knee surgery History of back surgery Family History Mother Cervical cancer Father Throat cancer Paternal Grandmother History of breast cancer Social History Housing: Apartment Patient Tobacco Use Status: Current everyday Tobacco user Tobacco use type: Cigarette Cigarette Packs Per Day: 1 Cigarettes Per Day: 20 e-Cigarette/Vaping Use: Never Used Second Hand Smoke Exposure: No service: No Current occupational status: disabled Cognitive needs: No Hearing needs: No Vision needs: No Female Reproductive History Menstrual Age of Menarche: 14 Review of Systems Const Reports as per HPI ENT Reports as per HPI Card Reports as per HPI Resp Reports as per HPI GI Reports as per HPI Reports as per HPI Physical Exam Const General: healthy appearing, no acute distress and well developed Nutritional Appearance: average body habitus Orientation/consciousness: patient oriented x3 HEENT Head: Yes normal to inspection, Yes normocephalic, Yes atraumatic and Yes contusion Face and sinus: Yes normal facial exam Mouth: Normal oral and palatal mucosa present, lip normal, oropharynx normal (with mild PND) and moist mucous membranes Teeth and gingiva: abnormal dentition Eyes General: appearance normal, both eyes and all related structures Neck Neck: Yes normal visual inspection Resp Effort & Inspection: normal respiratory effort, able to speak in complete sentences, no tracheal deviation and symmetric chest movement Auscultation: clear to auscultation bilaterally and rhonchi (cleared with forceful cough) Cardio Jugular venous distension: no JVD Rate: regular rate Rhythm: regular rhythm Heart sounds: S1 normal heart sound present, S2 normal heart sound present, no gallops and no murmurs GI Inspection: Yes normal to inspection, No distended, Yes obesity and Yes striae Palpation (GI): Soft to palpation, not firm, nontender and No hepatosplenomegaly present Auscultation: normal bowel sounds Neuro General: patient oriented x3 Gait exam (Neuro): Normal gait present Psych Appearance: grossly normal Mental Status: mental status grossly normal Speech and movement: Normal speech and movement present Affect: normal affect Attitude: cooperative Thought process: Normal thought process present Thought content: Normal thought content present Insight: Good insight present (Psych) Judgement: Good judgement present (Psych) Assessment & Plan Assessment & Plan (1) Screening for colon cancer: Code(s): Z12.11 - Encounter for screening for malignant neoplasm of colon Category: Medical Plan: Due for index screening colonoscopy. No alarm features. Medications: -prescriptions for laxative tablets and MiraLax sent to pharmacy; instructions for Gatorade purchase and clear liquid diet given. Patient educated on scheduling process, procedure preparation, including avoiding certain foods and ensuring clear liquid intake Advised on necessity for ride post-procedure due to sedation. (2) Epigastric abdominal pain: Code(s): R10.13 - Epigastric pain Category: Medical Plan: Chronic, severe epigastric pain with history of significant NSAID use, loss of response to antacids, and belching. Onset post-cholecystectomy. Additional Testing: -H. pylori breath test (scheduled, to be performed fasting and off PPIs) -Upper GI series (imaging to assess for mucosal/structural changes) -EGD (to be combined with colonoscopy when scheduled) Medication Management: -Omeprazole 20 mg daily, to be initiated after H. pylori testing completed -If H. pylori positive: 2-week course of antibiotics, PPI, and mucosal protectant Lifestyle Recommendations: -Continue avoidance of GI triggers (coffee, alcohol, acidic, spicy, fried, fatty foods) -Small, frequent meals; upright posture after eating -Maintain hydration -Smoking cessation (marijuana) Follow-Up:Office visit in 2 months or sooner if test results available or symptoms worsen Plan Follow-up in 2 months/post GI series or sooner as needed Time: I spent a total of 35 minutes on the date of encounter which includes: Preparing to see the patient (reviewed previous documentation, test results and medical history) Performing a medically appropriate exam and/or evaluation Ordering medications, tests, and procedures Documenting clinical information in the health record Orders: Orders FL upper GI small bowel Today R10.13 - Epigastric pain H Pylori Breath Test Today R10.13 - Epigastric pain Medications: New polyethylene glycol 3350 (Miralax) per colonoscopy prep instructions 238 grams PO ONCE 238 grams 0RF omeprazole Take one tablet daily. Best taken on an empty, 30 minutes before eating. 20 mg PO DAILY 90 caps 1RF bisacodyl (Dulcolax (bisacodyl)) Take four tablets pre colonoscopy instructions 20 mg (4 x 5 mg) PO ONCE 4 tabs 0RF 1 day Coding Level of Care Code New Pt New Pt Level 3 (74132) Patient Type New Diagnoses Screening for colon cancer Z12.11 Epigastric abdominal pain R10.13
[2024-12-10 10:44] VITALS: BP 102/69; PULSE 84; O2SAT 98; BMI 31.1
--- OUTSIDE RECORDS SUMMARY | 2024-12-10 11:43 | XMS_ITS | Encounter Summary ---
Author Organization [facility] Address [address] [place] [address] Phone Care Team Providers Care Flat Cutter Name Role Phone Eleno Palomino MD Primary Care Provider [phone] Encounter Details Date Type Department Care Team (Late st Contact Info) Description 09/05/2021 Procedure Pass [facility] Endoscopy Admitting Dept Virtual Department [address] [place] [address] Social History Tobacco Use Types Packs/Day Years Used Date Smoking Tobacco: Every Day Cigarettes Smokeless Tobacco: Never Alcohol Use Standard Drinks/Week Comments Not Currently 0 (1 standard drink = 0.6 oz pur e alcohol) Comments No Sex and Gender Information Value Date Recorded Sex Assigned at Not on file Legal Sex Female 9:27 PM EDT Gender Identity Not on file Sexual Orientation Not on file documented as of this encounter Plan of Treatment Not on file documented as of this encounter Visit Diagnoses Not on filedocumented in this encounter Care Teams Flat Cutter Relationship Specialty Start Date End Date Eleno Palomino MD PCP - General Internal Medicine 05/20/17 documented as of this encounter Additional Source Comments The information contained in this document represents components of the legal health record. It is not the complete legal health record.[facility]
--- OUTSIDE RECORDS SUMMARY | 2024-12-10 11:43 | XMS_ITS ---
Author Name [facility] Organization Unknown Encounters Encounter Type Encounter Reason Primary Diagnosis Location Date Emergency BACK PAIN Myalgia, other site [facility] 02/02/2024 Care Team Organization Name Specialty Phone Email Start Date End Da te [facility] 1
--- OUTSIDE RECORDS SUMMARY | 2024-12-10 11:43 | XMS_ITS | Clinical Summary ---
Author Organization [facility] Address [address] [place] [address] Care Team Providers Care Sole Seamer Name Role Phone Sammy Del Rio Primary Care Provider [phone] Allergies Active Allergy Reactions Criticality Noted Date Comments Amoxicillin Swelling High 09/23/2023 Oxycodone-Acetaminophen Nausea And Vomiting,Vomiting 05/20/2017 Medications fmvnqziu-zea-vt on-FA-vit K-lut (Centrum Minis Women 50 Plus) [...] 78 12/02/2023 4:35 PM EDT Temperature 36.3 C (97.3 F) 12/02/2023 4:35 PM EDT Respiratory Rate 18 12/02/2023 4:35 PM EDT [...] (1 of 3 - 19+ 3-dose series) 11/13/1994 DTaP,Tdap,and Td Vaccines (1 - Tdap) 11/13/1997 Pneumococcal Vaccine: Pediat kayleigh (0-5 Years) and At-Risk Patients (6-50 Years) (2 of 2 - PCV) 06/25/2015 06/24/2014 Mammogram 2015 COVID-19 Vaccine (1 - 2023- season) 2023 Alcohol/Substance Use Screening 04/15/2024 Depression Screening and Follow-Up 04/15/2024 Social Drivers of Health Yoselin ual Screening 04/15/2024 Influenza Vaccine (#1) 2024 06/12/2013 Diabetes Screening 12/01/2026 12/02/2023, 0 10/10/2023, 01/20/2021 RSV Vaccine (60+ years old a nd patients) (1 - 1-dose 75+ series) 11/13/2050 Procedures * Due to [place] deskwolf law, this organization might not be sharing negative HIV tests. Procedure Name Priority Date/Time Associated Diagnosis Comments BASIC METABOLIC PANEL STAT 12/02/2023 10:47 AM EDT from Last 3 Months or Most Recently Relevant to Health Maintenance Results * Due to [place] deskwolf law, this organization might not be sharing negative HIV tests. * (ABNORMAL) Basic Metabolic Panel (12/02/2023 10:47 AM EDT) NA 142 135 - 145 mmol/L 12/02/2023 11:46 AM EDT [facility] K 4.1 3.5 - 5.3 mmol/L 12/02/2023 11:46 AM EDT [facility] Cl 108(H) 98 - 107 mmol/L 12/02/2023 11:46 AM EDT [facility] CO2 22(L) 24 - 32 mmol/L 12/02/2023 11:46 AM EDT [facility] BUN 15 7 - 23 mg/dL 12/02/2023 11:46 AM EDT [facility] Creatinine 0.78 0.50 - 1.20 mg/dL 12/02/2023 11:46 AM EDT [facility] Glucose 83 65 - 99 mg/dL 12/02/2023 11:46 AM EDT [facility] Calcium 8.3(L) 8.6 - 10.5 mg/dL 12/02/2023 11:46 AM EDT [facility] Anion Gap 12 5 - 15 12/02/2023 11:46 AM EDT [facility] eGFR >90 >=60 mL/min/1. 73m2 12/02/2023 11:46 AM EDT [facility] Comment:The estimated glomer ular filtration rate (eGFR) is calculated using a new formula developed by the NKF-ASN task force to eliminate race-based correction factors. The new formula uses serum/plasma creatinine, age, and gender to determine eGFR. A value below 60mls/min might indicate kidney disease and will be flagged. For additional information, see Chino et al, Am J Kidney Dis. 2021;79(2):268- 288, A Unifying Approach for GFR estimation: Recommendations of the NKF-ASN Task Force on Reassessing the Inclusion of Race in Diagnosing Kidney Disease . Blood Structure of peripheral vein / Unknown Venipuncture / Unknown 12/02/2023 10:47 AM EDT 12/02/2023 11:32 AM EDT Kelly Carpenter NP LAB BLOOD ORDERABLES Final Result [facility] [address] [place] [address], from Last 3 Months or Most Recently Relevant to Health Maintenance Insurance [facility] Advance Directives * Presumed Full Code (Latest Code Status on File) Date Activated Date Inactivated Comments 12/02/2023 10:14 AM 12/02/2023 7:10 PM Care Teams Sole Seamer Relationship Specialty Start Date End Date Sammy Del Rio [address] [place] [address] PCP - General 06/07/23
== END 2024-12-10 11:19 | disposition home or self-care (01) ==
LOC: HO.HGI 10:23
PROVIDERS: PCP Nurse Practitioner Family; Visit Provider Nurse Practitioner Family
DX: Z01.818 Encounter for other preprocedural examination (principal); Z12.11 Encounter for screening for malignant neoplasm of colon; R10.13 Epigastric pain
CPT/HCPCS: 99024

== ENCOUNTER → 2024-12-10 10:23 | Outpatient (BNVA) | payer OTHER, SELFPAY | PROVIDERS: PCP Nurse Practitioner Family; Visit Provider Nurse Practitioner Family | DX: Z01.818 Encounter for other preprocedural examination (principal); R10.13 Epigastric pain | CPT/HCPCS: 99212 ==

== ENCOUNTER 2024-12-15 | Outpatient (REF) | payer OTHER, SELFPAY ==
--- OUTSIDE RECORDS SUMMARY | 2024-12-17 13:28 | XMS_ITS | Clinical Summary ---
Author Organization [facility] Address [address] [place] [address] Phone Care Team Providers Care Procedures Analyst Name Role Phone Eleno Palomino MD Primary Care Provider [phone] Allergies Active Allergy Reactions Criticality Noted Date [...] 1 Active pregabalin (LYRICA) 150 MG capsuleIndications :Fibromyalgia,watermelon inspector current use of non-steroidal anti-inflammatorie s (NSAID),On [...] in a quit smoking study offered by [facility] [employer] Division of Preventive and Behavioral Medicine- Carlos Blanco, Research [phone] She admitted that at this time she [...] in a quit smoking study offered by [facility] [employer] Division of Preventive and Behavioral Medicine- Carlos Blanco, Research [phone] Fibromyalgia 06/02/2019 Assessment & Plan (08/07/2020 7:15 [...] pharmacy and PCP best course of action. USP current use of non -steroidal anti-inflammatories (NSAID) [...] sweats for review with her PCP and payer specialist at the nearest visit to address it [...] SEE NARRATIVE - 05/27/2017 10:55 AM EST [address] [address] Rig Site Engineer: Radha Hernandez MD INDUSTRIAL ECONOMICS PROFESSOR Cytology Report FINAL DIAGNOSIS A. PAP SMEAR [...] 56, 58, 59, 66, 68) by Zeke Coher[employer] 4800 HR-HPV analysis. Clinical correlation is advised. This HPV test was performed at [facility], [address] [place] [address]. The accuracy and precision of this test has been verified in the Cytopathology laboratory of the [facility]. This test has not been cleared or approved by the U.S. Food and Drug Administration (FDA). CLINICAL HISTORY Date of Last Menstrual Period: 04/28/2017 Other Clinical Conditions: Screening Pap SPECIMEN SOURCE A: PAP SMEAR (SUREPATH) C Patient Name: SHIVANI MUSE : 1975 (Age: 41) Sex: F Institution: [facility] Location: [facility] Date of Collection: 05/20/2017 Date of Reported: 05/27/2017 10:55 Results to: Erica Lopes MSN, BS Erica Lopes PHARMACEUTICAL REPRESENTATIVE CYTOLOGY ORDERABLES Final Resu lt SEE NARRATIVE from Last 3 Months or Most Recently Relevant to Health Maintenance Insurance MED[place]ARE PART [place] & [facility] [place] [facility] & [facility] Care Teams Procedures Analyst Relationship Specialty Start Date End Date Eleno Palomino MD PCP - General Internal Medicine 05/20/17 Additional Source Comments The information contained in this document represents components of the legal health record. It is not the complete legal health record.[facility]
--- OUTSIDE RECORDS SUMMARY | 2024-12-17 13:28 | XMS_ITS | Encounter Summary ---
Author Organization [facility] Address [address] [place] [address] Phone Care Team Providers Care Medical Reception Specialist Name Role Phone Eleno Palomino MD Primary Care Provider [phone] Encounter Details Date Type Department Care Team (Late st Contact Info) Description 09/05/2021 Procedure Pass [facility] Endoscopy Admitting Dept Virtual Department [address] [place] [address] Social History Tobacco Use Types Packs/Day Years [...] on filedocumented in this encounter Care Teams Medical Reception Specialist Relationship Specialty Start Date End Date Eleno Palomino MD PCP - General Internal Medicine 05/20/17 documented as of this encounter Additional Source Comments The information contained in this document represents components of the legal health record. It is not the complete legal health record.[facility]
--- OUTSIDE RECORDS SUMMARY | 2024-12-17 13:28 | XMS_ITS | Clinical Summary ---
Author Organization [facility] Address [address] [place] [address] Care Team Providers Care Manager Php Name Role Phone Sammy Del Rio Primary Care Provider [phone] Allergies Active Allergy Reactions Criticality Noted Date Comments Amoxicillin Swelling High 09/23/2023 Oxycodone-Acetaminophen Nausea And Vomiting,Vomiting 05/20/2017 Medications zaybqzvn-ueq-wi on-FA-vit K-lut (Centrum Minis Women 50 Plus) [...] 2 - PCV) 06/25/2015 06/24/2014 Mammogram 2015 Alcohol/Substance Use Screening 04/15/2024 Depression Screening and Follow-Up 04/15/2024 Social Drivers of Health Yoselin ual Screening 04/15/2024 COVID-19 Vaccine ( - season) 2024 Influenza Vaccine (#1) 2024 06/12/2013 Diabetes Screening 12/01/2026 12/02/2023, 0 10/10/2023, 01/20/2021 RSV Vaccine (60+ years old a nd patients) (1 - 1-dose 75+ series) 11/13/2050 Procedures * Due to [place] [employer] law, this organization might not be sharing negative HIV tests. Procedure Name Priority Date/Time Associated Diagnosis Comments BASIC METABOLIC PANEL STAT 12/02/2023 10:47 AM EDT from Last 3 Months or Most Recently Relevant to Health Maintenance Results * Due to [place] [employer] law, this organization might not be sharing negative HIV tests. * (ABNORMAL) Basic Metabolic Panel (12/02/2023 10:47 AM EDT) NA 142 135 - 145 mmol/L 12/02/2023 11:46 AM EDT [facility] K 4.1 3.5 - 5.3 mmol/L 12/02/2023 11:46 AM EDT [facility] Cl 108(H) 98 - 107 mmol/L 12/02/2023 11:46 AM EDT [facility] CO2 22(L) 24 - 32 mmol/L 12/02/2023 11:46 AM EDT [facility] BUN 15 7 - 23 mg/dL 12/02/2023 11:46 AM EDT [facility] Creatinine 0.78 0.50 - 1.20 mg/dL 12/02/2023 11:46 AM EDT [facility] Glucose 83 65 - 99 mg/dL 12/02/2023 11:46 AM EDT [facility] Calcium 8.3(L) 8.6 - 10.5 mg/dL 12/02/2023 11:46 AM EDT [facility] Anion Gap 12 5 - 15 12/02/2023 11:46 AM EDT [facility] eGFR >90 >=60 mL/min/1. 73m2 12/02/2023 11:46 AM EDT [facility] Comment:The estimated glomer ular [...] Carpenter NP LAB BLOOD ORDERABLES Final Result [facility] [address] [place] [address], from Last 3 Months or Most Recently Relevant to Health Maintenance Insurance [facility] Advance Directives * Presumed Full Code (Latest Code Status on File) Date Activated Date Inactivated Comments 12/02/2023 10:14 AM 12/02/2023 7:10 PM Care Teams Manager Php Relationship Specialty Start Date End Date Sammy Del Rio [address] [place] [address] PCP - General 06/07/23
== END 2024-12-15 00:01 | disposition home or self-care (01) ==
LOC: HO.LNP
PROVIDERS: Visit Provider Nurse Practitioner Family
DX: R10.13 Epigastric pain (principal)
CPT/HCPCS: 83013

== ENCOUNTER 2024-12-15 08:38 | Outpatient (AMB) | payer OTHER, SELFPAY ==
--- NOTE | 2024-12-15 08:54 | AM.OFFVISNUR ---
Intake Visit Reasons: h pylori Intake Note: Patient presents for collection of?H Pylori?breath test. Patient has been fasting for 1 hour (nothing to eat, drink, no chewing gum or smoking) has not taken any antacid medication for at least 2 weeks and has no allergies to artificial sweeteners.?? Allergies Augmentin Allergy (Unknown, Uncoded 08/27/24 15:57) Unknown Cyclobenzaprine HCl Allergy (Unknown, Uncoded 08/27/24 15:57) Unknown Oxycodone HCl Allergy (Unknown, Uncoded 08/27/24 15:57) Unknown Penicillin Allergy (Unknown, Uncoded 08/27/24 15:57) Unknown Assessment & Plan Assessment & Plan (1) Epigastric abdominal pain: Code(s): R10.13 - Epigastric pain Category: Medical Plan Patient presents for collection of?H Pylori?breath test. Patient has been fasting for 1 hour (nothing to eat, drink, no chewing gum or smoking) has not taken any antacid medication for at least 2 weeks and has no allergies to artificial sweeteners.???This test checks for an overgrowth of bacteria in your stomach. We all have bacteria but some may have more than others. It is treatable. if the test comes back negative there is nothing else to do. If the test result is positive we will treat you with 2 antibiotics and a medication to decrease the acid in your stomach (PPI) for 2 weeks. Two weeks after you have completed the treatment we will retest you to make sure the overgrowth has resolved. Patient Instructions: Process for specimen collection and reason for testing was explained to the patient. Specimen collection. Patient instructed to take a deep breath and then exhale into the blue bag, filling it up as much as possible. Patient instructed to drink a mixture of water and the artificial sweetener with a straw. A 15 minute wait period was observed. Patient instructed to take a deep breath and then exhale into the pink bag, filling it up as much as possible.?? Coding Level of Care Code Established Pt Est Pt Level 1 (76149) Patient Type Established Medical Decision Making Straight Forward Diagnoses Epigastric abdominal pain R10.13
--- OUTSIDE RECORDS SUMMARY | 2024-12-15 09:24 | XMS_ITS | Encounter Summary ---
Author Organization [facility] Address [address] [place] [address] Phone Care Team Providers Care Classroom Assistant Name Role Phone Eleno Palomino MD Primary Care Provider [phone] Encounter Details Date Type Department Care Team (Late st Contact Info) Description 09/05/2021 Procedure Pass [facility]oscopy Admitting Dept Virtual Department [address] [place] [address] Social History Tobacco Use Types Packs/Day Years [...] on filedocumented in this encounter Care Teams Classroom Assistant Relationship Specialty Start Date End Date Eleno Palomino MD PCP - General Internal Medicine 05/20/17 documented as of this encounter Additional Source Comments The information contained in this document represents components of the legal health record. It is not the complete legal health record.[facility]
--- OUTSIDE RECORDS SUMMARY | 2024-12-15 09:24 | XMS_ITS | Clinical Summary ---
Author Organization [facility] Address [address] [place] [address] Phone Care Team Providers Care Accessioner Name Role Phone Eleno Palomino MD Primary Care Provider [phone] Allergies Active Allergy Reactions Criticality Noted Date Comments Oxycodone-Acetaminophen Nausea and/or Vomiting 05/20/2017 Medications DULoxetine (CYMBALTA) 30 MG capsule Take 30 mg by mouth daily. Active ibuprofen (ADVIL,MOTRIN) 800 MG tabletIndications: usually takes once a day Take 800 mg by mouth. Indications: usually takes once a day Active LORazepam (ATIVAN) 0.5 MG tablet Take 0.5 mg by mouth 3 (three) times a day as needed. Active morphine (MSIR) 15 MG tablet Take 15 mg by mouth 3 (three) times a day as needed. Active cholecalciferol (VITAMIN D3) 5,000 unit capsuleIndications :Vitamin D insufficiency Take 1 capsule (5,000 Units total) by mouth daily. 90 capsule 1 Active pregabalin (LYRICA) 150 MG capsuleIndications :Fibromyalgia,sign builder current use of non-steroidal anti-inflammatorie s (NSAID),On SSRI therapy TAKE 1 CAPSULE BY MOUTH 3 TIMES A DAY 90 capsule 1 Active Active Problems Problem Noted Date Diagnosed Date On SSRI therapy 11/23/2019 Assessment & Plan (07/29/2020 11:23 AM EDT): Monitor for mood swings, increased muscle rigidity and temperature intolerance. Assessment & Plan (11/24/2019 11:26 AM EDT): Take exactly as prescribed and follow closely with prescribing physician as scheduled. Monitor for mood swings, increased muscle rigidity and temperature intolerance. Chronic, continuous use of opioids 11/23/2019 Assessment & Plan (07/29/2020 11:22 AM EDT): Take exactly as prescribed, try to limit frequency by employing non-for pharmacologic measures such as topical creams, warm packs, patches, regular relaxation/mediation/positive imagery sessions etc. Build up regular exercise routine up to the goal of 30-45 minutes daily. Monitor for increasing shortness of breath, reduced respiratory drive, increasing constipation Assessment & Plan (11/24/2019 11:21 AM EDT): Take exactly as prescribed, try to limit frequency by employing non-for pharmacologic measures such as topical creams, warm packs, patches, regular relaxation/mediation/positive imagery sessions etc. Build up regular exercise routine up to the goal of 30-45 minutes daily. Monitor for increasing shortness of breath, reduced respiratory drive, increasing constipation Tobacco dependence 11/23/2019 Assessment & Plan (08/07/2020 7:17 PM EDT): I have spent at least 3 minutes on encouraging her to work on complete smoking cessation by reducing number of cigarettes smoked daily by 1 cigarette every week and be ready for dealing with cravings by stocking finger size healthy snacks such as small carrots, cucumbers, celery sticks etc. I reviewed with her that by smoking cessation she will reduce the risk of developing lung cancer, bladder cancer, cervical cancer, stroke and heart attack. I provided her with an option to consider participation in a quit smoking study offered by [facility] [[email or web address] [employer] Division of Preventive and Behavioral Medicine- Carlos Blanco, Research [phone] She admitted that at this time she is not interested in working on smoking cessation but may consider it in the nearest future Assessment & Plan (11/24/2019 11:25 AM EDT): I have spent at least 3 minutes on encouraging her to work on complete smoking cessation by reducing number of cigarettes smoked daily by 1 cigarette every week and be ready for dealing with cravings by stocking finger size healthy snacks such as small carrots, cucumbers, celery sticks etc. Into her that ongoing smoking may reduce the effectiveness of prescription medication. I reviewed with her that by smoking cessation she will reduce the risk of developing lung cancer, bladder cancer, cervical cancer, stroke and heart attack. I provided her with an option to consider participation in a quit smoking study offered by [facility] [[email or web address]] [facility] [employer] Division of Preventive and Behavioral Medicine- Carlos Blanco, Research [phone] Fibromyalgia 06/02/2019 Assessment & Plan (08/07/2020 7:15 PM EDT): We discussed the diagnosis of fibromyalgia, its natural history, and treatment. Specifically, we discussed that treatment requires many interventions and recognition that we are often unable to get patients completely pain free. Management of fibromyalgia requires patient engagement to address any underlying depression, anxiety, or sleep disorder. Further, patients are encouraged to engage in regular physical activity. Some studies have suggested that Grant Chi is effective. Other physical activity may include water-based aerobics, gentle yoga, walking, biking, swimming, Pilates etc. Carefully continue Lyrica 75 mg 3 times daily . I explained to her that she would benefit from a personal psychotherapist to address her anxiety, depression and PTSD. Start gentle, regular pool therapy. I provided her with literature on fibromyalgia with useful websites to get some more information. Additional benefit can be achieved by reading book written by Dr Reyes Rosales [facility] addressing management strategies for patients with fibromyalgia utilizing mindfulness approach. Assessment & Plan (11/24/2019 11:45 AM EDT): We discusntinue on the current dose ofsed the diagnosis of fibromyalgia, its natural history, and treatment. Specifically, we discussed that treatment requires many interventions and recognition that we are often unable to get patients completely pain free. Management of fibromyalgia requires patient engagement to address any underlying depression, anxiety, or sleep disorder. Further, patients are encouraged to engage in regular physical activity. Some studies have suggested that Grant Chi is effective. Other physical activity may include water-based aerobics, gentle yoga, walking, biking, swimming, Pilates etc. Carefully build up Lyrica 75 mg to 3 times daily hoping for increased pain control, less need for ibuprofen and improved sleep quality. I explained to her that she would benefit from a personal psychotherapist to address her anxiety, depression and PTSD. Get yearly influenza vaccine by mid January 2020. Start gentle, regular pool therapy. I provided her with literature on fibromyalgia with useful websites to get some more information. Additional benefit can be achieved by reading book written by Dr Reyes key addressing management strategies for patients with fibromyalgia utilizing mindfulness approach. Assessment & Plan (06/02/2019 10:16 PM EST): We discussed the diagnosis of fibromyalgia, its natural history, and treatment. Specifically, we discussed that treatment requires many interventions and recognition that we are often unable to get patients completely pain free. Management of fibromyalgia requires patient engagement to address any underlying depression, anxiety, or sleep disorder. Further, patients are encouraged to engage in regular physical activity. Some studies have suggested that Grant Chi is effective. Other physical activity may including water-based aerobics for which I provided her written referral today and suggested to try closer to her place of living or if not available save money from not smoking to ROOTS program in a warm pool offered for a $80 per 8 weeks. She may try gentle yoga, walking, biking, swimming, Pilates etc. In terms of pharmacotherapy, there are many options, including tricyclic antidepressants, duloxetine, gabapentin or pregabalin, and cyclobenzaprine as well as other similar medications to those listed. In this case, the patient might carefully continue on the current dose of Lyrica 75 mg twice daily since it is helping her by 90%. I explained to her that she would benefit from a personal psychotherapist to address her anxiety, depression and PTSD. I provided her with literature on fibromyalgia with useful websites to get some more information. Additional benefit can be achieved by reading book written by Dr Reyes key addressing management strategies for patients with fibromyalgia utilizing mindfulness approach. Primary osteoarthritis involving multiple joints 06/02/2019 Assessment & Plan (06/02/2019 10:10 PM EST): I explained to her chronic and usually progressive nature of osteoarthritis and reassured her that she does not have rheumatoid arthritis that would not only involve the joints and periarticular tissues but also in her organs of the body such as lungs, liver, skin, vessels etc. Joint protection, energy conservation. Gentle, regular exercise routine. Avoid falls, injuries, overuse. Keep body weight in ideal range for her height. She may benefit from topical cream such as Arnica, Biofreeze, Aspercreme versus medicated patches such as salonpas, icy hot patch 2-3 times daily and if necessary at bedtime x 3 weeks. She was provided with a list of topical products to carefully try as instructed. Severe episode of recurrent major depressive disorder, without psychotic features 06/02/2019 Assessment & Plan (07/29/2020 11:22 AM EDT): She is very distraught and crying frequently mostly from all my life is upside down . She denies suicidal or homicidal ideations. I reviewed with her that since I do not have the prior records of her medication trials and failures I asked her to check with her pharmacy and PCP best course of action. Assessment & Plan (11/24/2019 11:21 AM EDT): She is very distraught and crying frequently mostly from all my life is upside down . She denies suicidal or homicidal ideations. I reviewed with her that since I do not have the prior records of her medication trials and failures I asked her to check with her pharmacy and PCP best course of action. Assessment & Plan (06/02/2019 10:20 PM EST): She is very distraught and crying frequently mostly from all my life is upside down . She denies suicidal or homicidal ideations. I reviewed with her that since I do not have the prior records of her medication trials and failures I asked her to check with her pharmacy and PCP best course of action. alf current use of non -steroidal anti-inflammatories (NSAID) 06/02/2019 Assessment & Plan (07/29/2020 11:22 AM EDT): Take the lowest dose, with least frequency, for shortest time. Remember to take it always with food. Favor topical over oral preparations. Assessment & Plan (11/24/2019 11:26 AM EDT): Take the lowest dose, with least frequency, for shortest time. Remember to take it always with food. Favor topical over oral preparations. Assessment & Plan (06/02/2019 10:20 PM EST): Take the lowest dose, with least frequency, for shortest time. Remember to take it always with food. Favor topical over oral preparations. Vitamin D insufficiency 06/02/2019 Assessment & Plan (07/29/2020 11:21 AM EDT): I recommended her to take daily 5000 units vitamin D to bring serum level into optimal range of 40-45 NG/L Assessment & Plan (11/24/2019 11:12 AM EDT): I recommended her to take daily 5000 units vitamin D to bring serum level into optimal range of 40-45 NG/L Assessment & Plan (06/02/2019 10:08 PM EST): I recommended her to take daily 5000 units vitamin D to bring serum level into optimal range of 35-45 NG/L Chronic night sweats 06/02/2019 Assessment & Plan (06/02/2019 10:22 PM EST): She is asked to keep a diary of frequency and severity of her night sweats for review with her PCP and manager post at the nearest visit to address it properly. Family history of breast cancer in mother 2017 Smoker 05/20/2017 Assessment & Plan (06/02/2019 10:18 PM EST): I have spent at least 3 minutes on encouraging her to work on complete smoking cessation by reducing number of cigarettes smoked daily by 1 cigarette every week and be ready for dealing with cravings by stocking finger size healthy snacks such as small carrots, cucumbers, celery sticks etc. I stressed to her multiple benefits on complete smoking cessation including but not limited to decreasing the risk of developing lung cancer, bladder cancer, cervical cancer, stroke and heart attack. Additional benefit includes regaining smell and taste sensation. Since she is not ready at this very moment I encouraged her to realize that the longer she waits the harder it may become to quit that habit. There are her multiple resources that she can get help from including [employer] or in person cigarette smoking cessation specialist or text messaging that motivates her and keeps her focused on the goal once established. Assessment & Plan (05/20/2017 3:38 PM EST): Encouraged smoking cessation and discussed strategies. Shivani's father from recently diagnosed lung cancer less than two weeks ago. She is grieving and in shock, but understands that this can be possible motivation to attempt cessation again soon. Family History Medical History Relation Comments Lung cancer Father Throat cancer Maternal Grandfather Breast cancer Mother Cervical cancer Mother Breast cancer Paternal Grandmother Relation Status Comments Father 05/12/2017 Maternal Grandfather Mother Alive age 50s Paternal Grandmother Social History Tobacco Use Types Packs/Day Years Used Date Smoking Tobacco: Every Day Cigarettes Smokeless Tobacco: Never Alcohol Use Standard Drinks/Week Comments Not Currently 0 (1 standard drink = 0.6 oz pur e alcohol) Education Answer Date Recorded Are you interested in more education? Not on jimmy e 08/10/2022 Are you concerned about learning? Not on file 08/10/2022 No 08/10/2022 No 08/10/2022 Digital Access Answer Date Recorded No 09/06/2022 No 09/06/2022 Reliable internet access at home? Not on file 09/06/2022 Device with a working camera? Not on file Comments No Sex and Gender Information Value Date Recorded Sex Assigned at Not on file Legal Sex Female 9:27 PM EDT Gender Identity Not on file Sexual Orientation Not on file Last Filed Vital Signs Vital Sign Reading Time Taken Comments Blood Pressure 105/73 01/21/2021 12:16 AM EDT Pulse 63 01/21/2021 12:16 AM EDT Temperature 36.5 C (97.7 F) 01/20/2021 6:50 PM EDT Respiratory Rate 18 01/21/2021 12:16 AM EDT Oxygen Saturation 100% 01/21/2021 12:16 AM EDT Inhaled Oxygen Concentration - - Weight 78 kg (172 lb) 07/29/2020 9:00 AM EDT Height 157.5 cm (5' 2.01 ) 07/29/2020 9:00 AM ED T Body Mass Index 31.45 07/29/2020 9:00 AM EDT Plan of Treatment Health Maintenance Due Date Last Done Comments Adult Td,Tdap Booster 1975 LIPID PANEL 1975 DEPRESSION SCREENING 1987 SMOKING Hx and SMOKELESS TOBACCO SCREENING 11/13/1988 HEPATITIS C SCREENING 11/13/1993 HIV ONE-TIME SCREENING (18-6 5 YEARS) 11/13/1993 PNEUMOCOCCAL VACCINES (0-49 years) (1 of 2 - PCV) 11/13/1994 MAMMOGRAM 2015 COLOGUARD 11/13/2020 COLONOSCOPY 11/13/2020 COLORECTAL CANCER SCREENING 11/13/2020 FIT TEST 11/13/2020 FOBT 11/13/2020 SIGMOIDOSCOPY 11/13/2020 VIRTUAL COLONOSCOPY 11/13/2020 PAP SMEAR 05/20/2022 05/20/2017, 05/20/2017 INFLUENZA VACCINE (#1) 2024 COVID-19 VACCINE (2 - 2024-2 6 season) 2024 08/10/2020 HEPATITIS A VACCINES Aged Out No long er eligible based on patient's age to complete this topic HIB VACCINES Aged Out No longer eligi ble based on patient's age to complete this topic MENINGOCOCCAL VACCINES (ACWY) Aged Out No longer eligible based on patient's age to complete this topic MENINGOCOCCAL VACCINES (B) Aged Out N o longer eligible based on patient's age to complete this topic Medical Devices Not on file Procedures Procedure Name Priority Date/Time Associated Diagnosis Comments PAP TEST Routine 05/20/2017 12:00 AM EST from Last 3 Months or Most Recently Relevant to Health Maintenance Results * Pap Smear (05/20/2017 12:00 AM EST) 05/20/2017 05/21/2017 1:5 7 PM EST Narrative SEE NARRATIVE - 05/27/2017 10:55 AM EST [address] [address] Lubrication Equipment Servicer: Radha Hernandez MD REGISTRY RN Cytology Report FINAL DIAGNOSIS A. PAP SMEAR (SUREPATH) C: SPECIMEN ADEQUACY: Satisfactory for evaluation; transformation zone present. INTERPRETATION: NEGATIVE FOR INTRAEPITHELIAL LESION OR MALIGNANCY. Electronically Signed Out By: ISAAK Chapman(ASCP) The Pap test is a screening test primarily for squamous cancers and precursors and has associated false-negative and false-positive results. New technologies such as liquid-based preparations may decrease but will not eliminate all false-negative results. Regular sampling and follow-up of unexplained clinical signs and symptoms are recommended to minimize false negative results. PROCEDURES/ADDENDA HPV Testing (Requested) Ordered Date: 05/21/2017 HPV Test Negative for high risk human papillomavirus types 16, 18 and the Other high risk probe set (Includes 31, 33, 35, 39, 45, 51, 52, 56, 58, 59, 66, 68) by Zeke Corban [employer] 4800 HR-HPV analysis. Clinical correlation is advised. This HPV test was performed at [facility], [address] [place] [address]. The accuracy and precision of this test has been verified in the Cytopathology laboratory of the [facility]. This test has not been cleared or approved by the U.S. Food and Drug Administration (FDA). CLINICAL HISTORY Date of Last Menstrual Period: 04/28/2017 Other Clinical Conditions: Screening Pap SPECIMEN SOURCE A: PAP SMEAR (SUREPATH) C Patient Name: SHIVANI MUSE : 1975 (Age: 41) Sex: F Institution: [facility] Location: [facility] Date of Collection: 05/20/2017 Date of Reported: 05/27/2017 10:55 Results to: Erica Lopes MSN, BS Erica Lopes ENTERPRISE MOBILITY ARCHITECT CYTOLOGY ORDERABLES Final Resu lt SEE NARRATIVE from Last 3 Months or Most Recently Relevant to Health Maintenance Insurance [place] [facility] [place] [facility] MED[facility] & [facility] MEDIC[facility] PART A & B [facility] Care Teams Accessioner Relationship Specialty Start Date End Date Eleno Palomino MD PCP - General Internal Medicine 05/20/17 Additional Source Comments The information contained in this document represents components of the legal health record. It is not the complete legal health record.[facility]
--- OUTSIDE RECORDS SUMMARY | 2024-12-15 09:24 | XMS_ITS | Clinical Summary ---
Author Organization [facility] Address [address] [place] [address] Care Team Providers Care Tile Presser Name Role Phone Sammy Del Rio Primary Care Provider Allergies Active Allergy Reactions Criticality Noted Date Comments Amoxicillin Swelling High 09/23/2023 Oxycodone-Acetaminophen Nausea And Vomiting,Vomiting 05/20/2017 Medications qpbgoyiz-ehl-ml on-FA-vit K-lut (Centrum Minis Women 50 Plus) [...] 75+ series) 11/13/2050 Procedures * Due to [place] [employer] law, this organization might not be sharing negative HIV tests. Procedure Name Priority Date/Time Associated Diagnosis Comments BASIC METABOLIC PANEL STAT 12/02/2023 10:47 AM EDT from Last 3 Months or Most Recently Relevant to Health Maintenance Results * Due to [place] [employer] law, this organization might not be sharing negative HIV tests. * (ABNORMAL) Basic Metabolic Panel (12/02/2023 10:47 AM EDT) NA 142 135 - 145 mmol/L 12/02/2023 11:46 AM EDT [facility] K 4.1 3.5 - 5.3 mmol/L 12/02/2023 11:46 AM EDT [facility] Cl 108(H) 98 - 107 mmol/L 12/02/2023 11:46 AM EDT [facility] CO2 22(L) 24 - 32 mmol/L 12/02/2023 11:46 AM EDT [facility] BUN 15 7 - 23 mg/dL 12/02/2023 11:46 AM EDT [facility] Creatinine 0.78 0.50 - 1.20 mg/dL 12/02/2023 11:46 AM EDT [facility] Glucose 83 65 - 99 mg/dL 12/02/2023 11:46 AM EDT [facility] Calcium 8.3(L) 8.6 - 10.5 mg/dL 12/02/2023 11:46 AM EDT [facility] Anion Gap 12 5 - 15 12/02/2023 11:46 AM EDT [facility] eGFR >90 >=60 mL/min/1. 73m2 12/02/2023 11:46 AM EDT [facility] Comment:The estimated glomer ular [...] Carpenter NP LAB BLOOD ORDERABLES Final Result [facility] [address] [place] [address], from Last 3 Months or Most Recently Relevant to Health Maintenance Insurance [facility] Advance Directives * Presumed Full Code (Latest Code Status on File) Date Activated Date Inactivated Comments 12/02/2023 10:14 AM 12/02/2023 7:10 PM Care Teams Tile Presser Relationship Specialty Start Date End Date Sammy Del Rio [address] [place] [address] PCP - General 06/07/23
== END 2024-12-15 09:02 | disposition home or self-care (01) ==
LOC: HO.HGI 08:39
PROVIDERS: PCP Nurse Practitioner Family; Visit Provider Nurse Practitioner Family
DX: R10.13 Epigastric pain (principal)

== ENCOUNTER → 2024-12-15 08:38 | Outpatient (BNVA) | payer OTHER, SELFPAY | PROVIDERS: PCP Nurse Practitioner Family; Visit Provider Nurse Practitioner Family | DX: R10.13 Epigastric pain (principal) | CPT/HCPCS: 99211 ==

== ENCOUNTER 2025-01-20 07:41 | Outpatient (REF) | payer OTHER, SELFPAY ==
--- OUTSIDE RECORDS SUMMARY | 2025-01-20 07:44 | XMS_ITS | Clinical Summary ---
Author Organization [facility] Address [address] [place] [address] Phone Care Team Providers Care Gas Booster Engineer Name Role Phone Eleno Palomino MD Primary Care Provider [phone] Allergies Active Allergy Reactions Criticality Noted Date [...] 1 Active pregabalin (LYRICA) 150 MG capsuleIndications :Fibromyalgia,halfway current use of non-steroidal anti-inflammatorie s (NSAID),On [...] in a quit smoking study offered by [facility] Division of Preventive and Behavioral Medicine- Carlos Blanco, Research [phone] She admitted that at this time she [...] in a quit smoking study offered by [facility] Division of Preventive and Behavioral Medicine- Carlos Blanco, Research [phone] Fibromyalgia 06/02/2019 Assessment & Plan (08/07/2020 7:15 [...] pharmacy and PCP best course of action. extermination inspector current use of non -steroidal anti-inflammatories (NSAID) [...] sweats for review with her PCP and soaker at the nearest visit to address it [...] SEE NARRATIVE - 05/27/2017 10:55 AM EST [address] [address] Certified Health Education Specialist: Radha Hernandez MD SENIOR GL ACCOUNTANT Cytology Report FINAL DIAGNOSIS A. PAP SMEAR [...] 56, 58, 59, 66, 68) by Zeke Olomomo Nut [employer] 4800 HR-HPV analysis. Clinical correlation is advised. This HPV test was performed at [facility], [address] [place] [address]. The accuracy and precision of this test has been verified in the Cytopathology laboratory of the [facility]. This test has not been cleared or approved by the U.S. Food and Drug Administration (FDA). CLINICAL HISTORY Date of Last Menstrual Period: 04/28/2017 Other Clinical Conditions: Screening Pap SPECIMEN SOURCE A: PAP SMEAR (SUREPATH) C Patient Name: SHIVANI MUSE : 1975 (Age: 41) Sex: F Institution: [facility] Location: [facility] Date of Collection: 05/20/2017 Date of Reported: 05/27/2017 10:55 Results to: Erica Lopes MSN, BS Erica Lopes RING FACER CYTOLOGY ORDERABLES Final Resu lt SEE NARRATIVE from Last 3 Months or Most Recently Relevant to Health Maintenance Insurance [place] [facility] [place] [facility] A & B [facility] Care Teams Gas Booster Engineer Relationship Specialty Start Date End Date Eleno Palomino MD PCP - General Internal Medicine 05/20/17 Additional Source Comments The information contained in this document represents components of the legal health record. It is not the complete legal health record.[facility]
--- OUTSIDE RECORDS SUMMARY | 2025-01-20 07:44 | XMS_ITS | Encounter Summary ---
Author Organization [facility] Address [address] [place] [address] Phone Care Team Providers Care Machine Tack Puller Name Role Phone Eleno Palomino MD Primary Care Provider [phone] Encounter Details Date Type Department Care Team (Late st Contact Info) Description 09/05/2021 Procedure Pass [facility] Endoscopy Admitting Dept Virtual Department [address] [place] [address] Social History Tobacco Use Types Packs/Day Years [...] on filedocumented in this encounter Care Teams Machine Tack Puller Relationship Specialty Start Date End Date Eleno Palomino MD PCP - General Internal Medicine 05/20/17 documented as of this encounter Additional Source Comments The information contained in this document represents components of the legal health record. It is not the complete legal health record.[facility]
--- OUTSIDE RECORDS SUMMARY | 2025-01-20 07:44 | XMS_ITS | Clinical Summary ---
Author Organization [facility] Address [address] [place] [address] Care Team Providers Care Purchasing Internship Name Role Phone Sammy Del Rio Primary Care Provider [phone] Allergies Active Allergy Reactions Criticality Noted Date Comments Amoxicillin Swelling High 09/23/2023 Oxycodone-Acetaminophen Nausea And Vomiting,Vomiting 05/20/2017 Medications vhtzjjag-aln-ue on-FA-vit K-lut (Centrum Minis Women 50 Plus) [...] Health Yoselin ual Screening 04/15/2024 COVID-19 Vaccine (1 - 2023-2 5 season) 2024 Influenza Vaccine (#1) 2024 06/12/2013 RSV Vaccine (60+ years old a nd patients) (1 - 1-dose 75+ series) 11/13/2050 Diabetes Screening Discontinued 12/02/2023, 0 10/10/2023, 01/20/2021 Procedures * Due to [place] [employer] law, this organization might not be sharing negative HIV tests. Procedure Name Priority Date/Time Associated Diagnosis Comments BASIC METABOLIC PANEL STAT 12/02/2023 10:47 AM EDT from Last 3 Months or Most Recently Relevant to Health Maintenance Results * Due to [place] [employer] law, this organization might not be sharing negative HIV tests. * (ABNORMAL) Basic Metabolic Panel (12/02/2023 10:47 AM EDT) NA 142 135 - 145 mmol/L 12/02/2023 11:46 AM EDT [facility] K 4.1 3.5 - 5.3 mmol/L 12/02/2023 11:46 AM EDT [facility] Cl 108(H) 98 - 107 mmol/L 12/02/2023 11:46 AM EDT [facility] CO2 22(L) 24 - 32 mmol/L 12/02/2023 11:46 AM EDT [facility] BUN 15 7 - 23 mg/dL 12/02/2023 11:46 AM EDT [facility] Creatinine 0.78 0.50 - 1.20 mg/dL 12/02/2023 11:46 AM EDT [facility] Glucose 83 65 - 99 mg/dL 12/02/2023 11:46 AM EDT [facility] Calcium 8.3(L) 8.6 - 10.5 mg/dL 12/02/2023 11:46 AM EDT [facility] Anion Gap 12 5 - 15 12/02/2023 11:46 AM EDT [facility] eGFR >90 >=60 mL/min/1. 73m2 12/02/2023 11:46 AM EDT [facility] Comment:The estimated glomer [...] Carpenter NP LAB BLOOD ORDERABLES Final Result [facility] [address] [id number], from Last 3 Months or Most Recently Relevant to Health Maintenance Insurance [facility] Advance Directives * Presumed Full Code (Latest Code Status on File) Date Activated Date Inactivated Comments 12/02/2023 10:14 AM 12/02/2023 7:10 PM Care Teams Purchasing Internship Relationship Specialty Start Date End Date Sammy Del Rio [address] [place] [address] PCP - General 06/07/23
== END 2025-01-20 07:42 | disposition home or self-care (01) ==
LOC: HO.XRAY 07:41
PROVIDERS: PCP Nurse Practitioner Family; Visit Provider Nurse Practitioner Family
DX: Z13.89 Encounter for screening for other disorder (principal)

== ENCOUNTER 2025-02-25 08:57 | Outpatient (REF) | payer OTHER, SELFPAY ==
--- NOTE | ~2025-02-25 | XR_ITS ---
EXAMINATION: XR FOOT, LEFT CLINICAL INFORMATION: M79.672 - Pain in left foot COMPARISON: None available. TECHNIQUE: AP, lateral, and oblique views of the left foot. FINDINGS: No acute fracture, dislocation or suspicious bony lesion. Alignment is anatomic. Tarsometatarsal alignment is maintained. No significant joint space narrowing or osteophytes. Small posterior calcaneal enthesopathy. No unexpected radiopaque foreign body. XR/XR foot LT min 3V IMPRESSION: No radiographic evidence of acute osseous findings. Electronically signed by: Fady Braxton MD 02/25/2025 10:37 AM JERRY
== END 2025-02-25 08:58 | disposition home or self-care (01) ==
LOC: HO.HMGCX 08:57
PROVIDERS: PCP Nurse Practitioner Family; Visit Provider Physician Assistant Medical
DX: M79.672 Pain in left foot (principal)
CPT/HCPCS: 73630; 99212

== ENCOUNTER 2025-02-25 08:57 | Outpatient (AMB) | payer OTHER, SELFPAY ==
[2025-02-25 09:05] VITALS: BP 102/78; PULSE 95; O2SAT 97; BMI 30.2
--- NOTE | 2025-02-25 09:05 | MHC.OFFWIV ---
Intake Vital Signs 02/25/25 09:05 Height 5 ft 2 in Weight 165 lb BMI 30.2 BP 102/78 Blood Pressure Location Lt brachial Position Sitting Pulse 95 Pulse Source Pulse Oximeter Pulse Oximetry (%) 97 Oxygen Delivery Method Room Air Intake Visit Reasons: EP Left foot pain Intake Note: Patient presents c/o left foot pain x3 weeks. Patient Tobacco Use Status: Current everyday Tobacco user Allergies amoxicillin (From Augmentin) Allergy (Verified 02/25/25 09:11) Unknown clavulanic acid (From Augmentin) Allergy (Verified 02/25/25 09:11) Unknown Penicillins Allergy (Verified 02/25/25 09:11) Eye Swelling acetaminophen (From Percocet) Adverse Reaction (Verified 02/25/25 09:11) Vomiting cyclobenzaprine Adverse Reaction (Verified 02/25/25 09:11) Unknown oxycodone Adverse Reaction (Verified 02/25/25 09:11) altered mental state Do you need a note to return to daycare/school/sports/work: No HPI HPI Comments History of Present Illness Details History of Present Illness - The patient is a 49-year-old female presenting with left foot pain following a toe injury. - Approximately three weeks ago, the patient injured her left foot by hitting her toe against a chair. - Pain is primarily experienced when standing, with tenderness around the toes. - Initial swelling was noted post-injury, but no redness or heat was observed. - The patient denies any tingling or numbness in the foot. - She denies redness, warmth, bruising, heel pain, ankle pain, or calf pain. - She does get gel injections to the knees bilaterally. - She also has had back pain and surgeries. - She has not taken anything for her pain due to her stomach issues. Physical Exam General: Cooperative, healthy appearing, comfortable, no acute distress and well developed Orientation: Patient oriented x3 Respiratory: Normal respiratory effort and able to speak in complete sentences. Clear to auscultation bilaterally Cardiovascular: Regular rate and rhythm. Normal S1 and S2. Pulses are 2+. Skin: No rashes or lesions noted. No abrasions noted. Neuro: Sensation is intact. Extremities: Normal to inspection. No redness or current swelling noted. FROM of knees. FROM of the digits noted on the left foot. TTP of the plantar forefoot on the left at the base of the 2nd and 3rd toes. No plantar fascia tenderness,. No TTP of the calcaneous. No Achilles tendon tenderness noted. Ankle flexion is without pain. Strength is 5/5 on the LE. Ambulates with steady gait. Patient was informed and verbally consented to the use of an ambient scribe for clinic note documentation during this visit. [facility] Medical History (Updated 02/23/25 @ 13:37 by Sammy Del Rio [facility]) Osteoarthritis of knees, bilateral Epigastric abdominal pain Patellofemoral chondrosis of right knee Patellofemoral chondrosis of left knee Abnormal uterine bleeding (AUB) Hot flashes Anxiety Depression Fibromyalgia Arthritis H/O degenerative disc disease Surgical History History of hysterectomy Hx of cholecystectomy Hx of tubal ligation Hx of knee surgery History of back surgery Family History Mother Cervical cancer Father Throat cancer Paternal Grandmother History of breast cancer Social History Housing: Apartment Patient Tobacco Use Status: Current everyday Tobacco user Tobacco use type: Cigarette Cigarette Packs Per Day: 1 Cigarettes Per Day: 20 e-Cigarette/Vaping Use: Never Used Second Hand Smoke Exposure: No service: No Current occupational status: disabled Cognitive needs: No Hearing needs: No Vision needs: No Female Reproductive History Menstrual Age of Menarche: 14 Review of Systems Const All systems reviewed & are unremarkable except as noted in HPI and below Physical Exam Vital Signs: Last Vital Signs Pulse 95 02/25/25 09:05 BP 102/78 02/25/25 09:05 Pulse Ox 97 02/25/25 09:05 Oxygen Delivery Method Room Air 02/25/25 09:05 BMI result Body Mass Index 30.2 Results Reviewed Results Reviewed: will review the xray in the office Assessment & Plan Assessment & Plan (1) Left foot pain: Code(s): M79.672 - Pain in left foot Plan Most likely strain vs contusion vs arthritis vs plantar fascia plan - will order her an x-ray today in the office - Conservative management including rest, ice, and elevation of the affected foot is advised. - Use of supportive footwear and possible orthotic shoe is recommended to alleviate symptoms. - Continued monitoring for any changes in symptoms such as increased pain or swelling is recommended. - Avoidance of activities that exacerbate the pain is suggested. - can refer her to ortho - follow up with PCP Orders: Orders XR foot LT min 3V Today M79.672 - Pain in left foot Coding Level of Care Code Est Pt Level 4 (04662) Diagnoses Left foot pain M79.672
--- OUTSIDE RECORDS SUMMARY | 2025-02-25 09:38 | XMS_ITS | Encounter Summary ---
Author Organization [facility] Address [address] [place] [address] Phone Care Team Providers Care Jigger Crown Pouncing Machine Operator Name Role Phone Eleno Palomino MD Primary Care Provider [phone] Encounter Details Date Type Department Care Team (Late st Contact Info) Description 09/05/2021 Procedure Pass [facility] Endoscopy Admitting Dept Virtual Department [address] [place] [address] Social History Tobacco Use Types Packs/Day Years [...] on filedocumented in this encounter Care Teams Jigger Crown Pouncing Machine Operator Relationship Specialty Start Date End Date Eleno Palomino MD PCP - General Internal Medicine 05/20/17 documented as of this encounter Additional Source Comments The information contained in this document represents components of the legal health record. It is not the complete legal health record.[facility]
--- OUTSIDE RECORDS SUMMARY | 2025-02-25 09:38 | XMS_ITS | Clinical Summary ---
Author Organization [facility] Address [address] [place] [address] Care Team Providers Care Radiology Aide Name Role Phone Sammy Del Rio Primary Care Provider Allergies Active Allergy Reactions Criticality Noted Date Comments Amoxicillin Swelling High 09/23/2023 Oxycodone-Acetaminophen Nausea And Vomiting,Vomiting 05/20/2017 Medications rrezimuy-ljs-ed on-FA-vit K-lut (Centrum Minis Women 50 Plus) [...] ual Screening 04/15/2024 COVID-19 Vaccine (1 - 2024-2 6 season) 2024 Influenza Vaccine (#1) 2024 06/12/2013 Diabetes Screening Discontinued 12/02/2023, 0 10/10/2023, 01/20/2021 Procedures * Due to [place] [employer] law, this organization might not be sharing negative HIV tests. Procedure Name Priority Date/Time Associated Diagnosis Comments BASIC METABOLIC PANEL STAT 12/02/2023 10:47 AM EDT from Last 3 Months or Most Recently Relevant to Health Maintenance Results * Due to [place] [employer] law, this organization might not be sharing negative HIV tests. * (ABNORMAL) Basic Metabolic Panel (12/02/2023 10:47 AM EDT) NA 142 135 - 145 mmol/L 12/02/2023 11:46 AM EDT [facility] K 4.1 3.5 - 5.3 mmol/L 12/02/2023 11:46 AM EDT [facility] Cl 108(H) 98 - 107 mmol/L 12/02/2023 11:46 AM EDT [facility] CO2 22(L) 24 - 32 mmol/L 12/02/2023 11:46 AM EDT [facility] BUN 15 7 - 23 mg/dL 12/02/2023 11:46 AM EDT [facility] Creatinine 0.78 0.50 - 1.20 mg/dL 12/02/2023 11:46 AM EDT [facility] Glucose 83 65 - 99 mg/dL 12/02/2023 11:46 AM EDT [facility] Calcium 8.3(L) 8.6 - 10.5 mg/dL 12/02/2023 11:46 AM EDT [facility] Anion Gap 12 5 - 15 12/02/2023 11:46 AM EDT [facility] eGFR >90 >=60 mL/min/1. 73m2 12/02/2023 11:46 AM EDT [facility] Comment:The estimated glomer ular filtration rate (eGFR) is calculated using a new formula developed by the NKF-ASN task force to eliminate race-based correction factors. The new formula uses serum/plasma creatinine, age, and gender to determine eGFR. A value below 60mls/min might indicate kidney disease and will be flagged. For additional information, see Matti et al, Am J Kidney Dis. 2021;79(2):268- 288, A Unifying Approach for GFR estimation: Recommendations of the NKF-ASN Task Force on Reassessing the Inclusion of Race in Diagnosing Kidney Disease . Blood Structure of peripheral vein / Unknown Venipuncture / Unknown 12/02/2023 10:47 AM EDT 12/02/2023 11:32 AM EDT Kelly Carpenter NP LAB BLOOD ORDERABLES Final Result [facility] [address] [place] [address], from Last 3 Months or Most Recently Relevant to Health Maintenance Insurance [facility] Advance Directives * Presumed Full Code (Latest Code Status on File) Date Activated Date Inactivated Comments 12/02/2023 10:14 AM 12/02/2023 7:10 PM Care Teams Radiology Aide Relationship Specialty Start Date End Date Sammy Del Rio [address] [place] [address] PCP - General 06/07/23
--- OUTSIDE RECORDS SUMMARY | 2025-02-25 09:38 | XMS_ITS | Clinical Summary ---
Author Organization [facility] Address [address] [place] [address] Phone Care Team Providers Care Pulp Drier Name Role Phone Eleno Palomino MD Primary Care Provider [phone] Allergies Active Allergy Reactions Criticality Noted Date [...] 1 Active pregabalin (LYRICA) 150 MG capsuleIndications :Fibromyalgia,termite control technician current use of non-steroidal anti-inflammatorie s (NSAID),On [...] in a quit smoking study offered by [facility] Division of Preventive and Behavioral Medicine- Carlos Blanco, Research [phone] She admitted that at this time she [...] in a quit smoking study offered by [facility] Division of Preventive and Behavioral Medicine- Carlos Blanco, Research [phone] Fibromyalgia 06/02/2019 Assessment & Plan (08/07/2020 7:15 [...] pharmacy and PCP best course of action. senior care current use of non -steroidal anti-inflammatories (NSAID) [...] sweats for review with her PCP and catering cook at the nearest visit to address it [...] on patient's age to complete this topic IPV VACCINES Aged Out No longer eligi ble [...] SEE NARRATIVE - 05/27/2017 10:55 [place] [address] Behavioral Health Case Manager: Radha Hernandez MD PROFESSOR OF FLORICULTURE Cytology Report FINAL DIAGNOSIS A. PAP SMEAR [...] 56, 58, 59, 66, 68) by Zeke En[employer] 4800 HR-HPV analysis. Clinical correlation is advised. This HPV test was performed at [facility], [address] [place] [address]. The accuracy and precision of this test has been verified in the Cytopathology laboratory of the [facility]. This test has not been cleared or approved by the U.S. Food and Drug Administration (FDA). CLINICAL HISTORY Date of Last Menstrual Period: 04/28/2017 Other Clinical Conditions: Screening Pap SPECIMEN SOURCE A: PAP SMEAR (SUREPATH) C Patient Name: SHIVANI MUSE : 1975 (Age: 41) Sex: F Institution: [facility] Location: [facility] Date of Collection: 05/20/2017 Date of Reported: 05/27/2017 10:55 Results to: Erica Lopes MSN, BS Erica Lopes TECHNICAL CONSULTANT CYTOLOGY ORDERABLES Final Resu lt SEE NARRATIVE from Last 3 Months or Most Recently Relevant to Health Maintenance Insurance [place] & [facility] [place] M[place] & B [facility] Care Teams Pulp Drier Relationship Specialty Start Date End Date Eleno Palomino MD PCP - General Internal Medicine 05/20/17 Additional Source Comments The information contained in this document represents components of the legal health record. It is not the complete legal health record.[facility]
== END 2025-02-25 09:51 | disposition home or self-care (01) ==
PROVIDERS: PCP Nurse Practitioner Family; Visit Provider Physician Assistant Medical
DX: M79.672 Pain in left foot (principal)

== ENCOUNTER → 2025-02-25 09:57 | Outpatient (BNV) | payer OTHER, SELFPAY | PROVIDERS: PCP Nurse Practitioner Family; Visit Provider Radiology Diagnostic Ultrasound | DX: M79.672 Pain in left foot (principal) | CPT/HCPCS: 73630 ==